=== PATIENT | male | born 1970 | race Two or more races ===

== ENCOUNTER 2018-06-07 21:56 | Emergency (ER) | payer MEDICARE, MEDICAID ==
[~2018-06-07] VITALS: Ht 162.6 cm; Wt 67.6 kg
[2018-06-07 23:19] LABS: Basophils # (auto) 0.1 uL; Basophils % (auto) 0.9 % (0.0-2.0); Eosinophils # (auto) 0.1 uL; Eosinophils % (auto) 1.7 % (0.0-7.0); Hematocrit 33.8 % (41.0-53.0); Lymphocytes # (auto) 0.7 uL; Mean Corpuscular Hemoglobin 32.2 pg (28.0-32.0); Mean Corpuscular Hgb Conc. 32.5 g/dL (32.0-36.0); Mean Corpuscular Volume 98.9 fL (80.0-100.0); Monocytes # (auto) 0.6 uL; Monocytes % (auto) 7.7 % (0.0-12.0); Neutrophils # (auto) 6.6 uL; Neutrophils % (auto) 80.7 % (37.0-80.0); Platelet Count (auto) 173 10^3/uL (140-450); Red Blood Cells 3.42 10^6/uL (4.5-5.90); Red Cell Distribution Width 16.6 % (11.8-14.3); White Blood Cell 8.2 10^3/uL (4.4-10.8)
[2018-06-07 23:36] LABS: Albumin 3.6 g/dL (3.4-5.0); BUN/Creatinine Ratio 4.5; Calcium 7.5 mg/dL (8.5-10.1); Potassium 5.1 mmol/L (3.5-5.1)
[2018-06-07 23:38] LABS: INR 0.94 (0.9-1.15); Partial Thromboplastin Time 27.7 sec (23.78-33.04); Prothrombin Time 10.1 sec (9.27-12.13)
[2018-06-07 23:41] LABS: Bilirubin, Total 0.4 mg/dL (0.2-1.0); Total Protein 7.2 g/dL (6.4-8.2)
[2018-06-08] MEDS ORDERED: ONDANSETRON HCL 4 MG/2 ML VIAL IV ONE (00:45)
[2018-06-08] MEDS ORDERED: ASPirin 81 mg TAB PO ONE (00:45)
[2018-06-08] MEDS ORDERED: MORPHINE SULFATE 4 MG/ML SYR/VIAL IV ONE (00:45)
[2018-06-08] MEDS ORDERED: ENOXAPARIN SOD 100 MG/1 ML SYRINGE SC ONE (03:45)
[2018-06-08 05:45] VITALS: BP 149/92
== END 2018-06-08 06:00 | disposition home or self-care (01) ==
LOC: ER 21:56
DX: I20.0 Unstable angina (principal); E11.22 Type 2 diabetes mellitus with diabetic chronic kidney disease; I12.0 Hypertensive chronic kidney disease with stage 5 chronic kidney disease or end stage renal disease; N18.6 End stage renal disease; I25.2 Old myocardial infarction
CPT/HCPCS: 36415; 71045; 80053; 83735; 83880; 84484; 85025; 85610; 85730; 93005; 96372; 96374; 96375; 99285; J1650; J2270; J2405

== ENCOUNTER 2024-11-19 17:31 | Inpatient (IN) | payer MEDICARE, OTHER ==
[~2024-11-19] VITALS: Ht 170.2 cm; Wt 66.4 kg
--- NOTE | 2024-11-19 17:42 | ED.PDOC ---
CPR-HPI HPI Comments 54-year-old male with past medical history of diabetes, end-stage renal disease, dialysis, and hypertension presents to the ED via EMS for cardiac arrest. EMS reports that patient experienced a witnessed arrest at home by family after reportedly complaining of chest pain. Estimated downtime was less than 10 minutes. Upon EMS arrival, the patient was found to be in ventricular fibrillation. One shock was delivered at 200 joules with transient ROSC. D uring Pre hospital resuscitation, EMS administrated 3 doses of epi, 1 dose of sodium bicarbonate, and 1 dose of calcium. The patient achieved ROSC twice in route but lost pulses on both occasions. Patient arrived at the ED with no signs of circulation and active CPR in progress via Teddy machine. No further history is available at this time as family he is not currently present. ROSC achieved at 1729 at bedside. EMS is unsure when patient gets dialyzed nor when his last session took place. Per [facility] medical records, patient does have a history of a previous CA and CAD. Chief Complaint: CPR Time Seen by MD: 17:28 Primary Care Provider: SAVI Franz Notes: Nurses Notes, Rn Acute Dialysis Notes, Medications, Allergies Allergies: Coded Allergies: Amlodipine (Verified Allergy, Unknown, 11/20/24) Home Meds Reported Medications Nitroglycerin (NTROSTAT SUBLINGUAL) 0.4 Mg Sl, 0.4 MG SL PRN, TAB *MAY REPEAT EVERY 5 MINUTES X 3 TOTAL IF NO RELIEF, INITIATE ANALGESIC THERAPY. NOTIFY PHYSICIAN *Do not crush. 11/20/24 Trazodone Hcl (Trazodone Hcl) 50 Mg Tab, 50 MG PO HS, MG TAKE 2 TO 3 TABLETS BY MOUTH NEEDED 11/20/24 Losartan Potassium (Losartan Potassium) 50 Mg Tab, 50 MG PO DAILY for 30 Days, MG 11/20/24 Clopidogrel Bisulfate (CLOPIDOGREL) 75 Mg Tab, 75 MG PO DAILY for 30 Days, MG 11/20/24 Atorvastatin Calcium (ATORVASTATIN CALCIUM) 80 Mg Tab, 80 MG PO DAILY@DINNER, TAB 11/20/24 Aspirin (Aspir-Low) 81 Mg Tab, 81 MG PO DAILY for 30 Days, MG 11/20/24 Carvedilol (Carvedilol) 12.5 Mg Tab, 12.5 MG PO Q12HR for 30 Days, MG 11/20/24 Information Source: Emergency Med Personnel Mode of Arrival: EMS Timing: Minutes Duration: Down time prior EMS: (less than 10 minutes ), Total time prior hopital: (less than 10 minutes ) Onset: At rest Available Hx: Prior Cardiac Disease Inital rhythm: V-fib Treatment: CPR, External pacer, IV, Epinephrine (3), Other (Bicarb and calcium ) Associated signs and symptoms: Chest Pain Past Medical History PAST MEDICAL HISTORY: DM, ESRD, HTN, CA Surgical History: Denies all surgeries Family History Family History: Unknown Social History Smoker: Non-Smoker Alcohol: Denies ETOH Use Drugs: Denies Drug Use Lives In: Home Unable to Obtain due to: Medical Urgency Physical Exam General Appearance: Other (CPR in progress) HEENT: PERRL/EOMI Neck: Normal Inspection Respiratory: Other (Patient being bagged) Cardiovascular: Other (CPR in progress) Breast Exam: Deferred Gastrointestinal: No Pulsatile Mass Genitalia: Deferred Pelvic: Deferred Rectal: Deferred Extremities: No pedal edema Neurologic: Other (Patient unresponsive) Cerebellar Function: NOT DONE Reflexes: NOT DONE Skin: Mottled Lymphatic: NOT DONE Was a procedure done? 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 Indication: Hypotension, Inability to obtain IV Room prepared for procedure: Yes Distresser performed hand hygien: Yes Maximal sterile barrier precau: Mask/Eye shield, Sterile gown, Cap, Sterlie gloves, Large sterlie drape Skin Preparation: Providine iodine Skin preparation completely dr: Yes Insertion site: Right, Femoral Central line catheter type: Xlu-fbepmyrj-smn dialysis Number of lumens: 3 Central line exchanged over a: Yes Antiseptic ointment applied to: Yes Post Assessment: Chest X-Ray, Proper placement Informed consent obtained: No Risks/benefits/alt described: No Differential Dx CPR Differential Diagnosis: Cardiopulmonary arrest, Cardiac Tamponade, Electrolyte disorder, Heart Block, Myocardial Infarction, Pneumothorax, Pulmonary Embolus, Respiratory Failure, Ruptured Aortic Aneurysm X-Ray, Labs, Meds, VS Vital Signs Date Time Temp Pulse Resp B/P (MAP) Pulse Ox O2 Delivery O2 Flow Rate FiO2 11/19/24 20:30 96.1 96 29 115/52 (73) 98 96.1 11/19/24 20:30 115/52 11/19/24 20:30 115/52 11/19/24 20:30 94 11/19/24 20:16 100/59 11/19/24 20:15 96.1 95 27 100/59 (73) 99 96.1 11/19/24 20:00 108/50 11/19/24 20:00 96.1 89 15 108/50 (69) 100 96.1 11/19/24 19:52 72 27 96/31 (52) 100 85 11/19/24 19:45 96.1 61 17 96/31 (52) 100 96.1 11/19/24 19:45 96/31 11/19/24 19:33 205.0 81 Ambu-Bag 11/19/24 19:30 75 21 98 Mechanical Ventilator+ 60 60 11/19/24 19:30 96.1 61 30 88/32 (50) 100 96.1 11/19/24 19:30 88/32 11/19/24 19:30 88/32 11/19/24 19:30 88/32 11/19/24 19:30 96.8 83 19 84/46 (59) 98 96.8 11/19/24 19:30 133 Ambu-Bag 11/19/24 19:15 96.1 59 25 87/46 (60) 100 96.1 11/19/24 19:15 87/46 11/19/24 19:15 87/46 11/19/24 19:03 67 11/19/24 19:00 84 18 210/99 (136) 100 11/19/24 18:45 85 11/19/24 18:40 75 18 108/49 (68) 100 11/19/24 18:30 77 18 117/55 (75) 100 11/19/24 18:20 82 16 139/67 (91) 100 11/19/24 18:10 152/80 11/19/24 18:05 97 16 100 Mechanical Ventilator+ 100 100 11/19/24 18:00 97 16 169/88 (115) 96 11/19/24 17:56 165/86 11/19/24 17:55 158/79 11/19/24 17:43 92 16 180/88 (118) 100 100 11/19/24 17:37 113 11/19/24 17:31 98.6 129 18 186/93 (124) 100 98.6 11/19/24 17:31 123 Lab Test 11/19/24 19:50 11/19/24 19:25 11/19/24 19:15 11/19/24 19:01 Range/Units POC Glucose 192 H 70-106 mg/dl Sodium Level 141 # 136-145 mmol/L Potassium Level 6.8 *H 3.5-5.1 mmol/L Chloride Level 101 98-107 mmol/L Carbon Dioxide Level 16 L 20-31 mmol/L Anion Gap 24 H 5-15 Blood Urea Nitrogen 97 *H 9-23 mg/dL Creatinine 13.00 *H 0.700-1.30 mg/dL Glomerular Filtration Rate Calc 4 >90 mL/min BUN/Creatinine Ratio 7.5 L 10.0-20.0 Serum Glucose 206 H 74-106 mg/dL Lactic Acid Level 4.1 *H 0.4-2.0 mmol/L Calcium Level 11.0 H 8.7-10.4 mg/dL Creatine Kinase 352 H 46-171 U/L Blood Gas Specimen Type Arterial Blood Gas Sample Site Left radial Blood Gas Patient Temperature 37.0 Arterial Blood Date Drawn [id number] Arterial Blood pH 7.242 *L 7.350-7.450 Arterial Blood Partial Pressure CO2 33.2 L 35.0-48.0 mmHg Arterial Blood Partial Pressure O2 96.5 83.0-108.0 mmHg Arterial Blood HCO3 14.0 L 21.0-28.0 mmol/L Arterial Blood Oxygen Saturation 94.8 94.0-98.0 % Arterial Blood Base Excess -12.2 L -2.0-3.0 mmol/L Arterial Blood Oxyhemoglobin 93.7 L 94.0-98.0 % Arterial Blood Carboxyhemoglobin 0.7 0.5-1.5 % Arterial Blood Methemoglobin 0.5 0.0-1.5 % Miguel Test N/a Blood Gas Total Hemoglobin 13.30 L 13.5-17.5 g/dL Blood Gas Set Respiration Rate 16.0 Blood Gas Modality Vent - ac FiO2 % 30.0 Blood Gas Tidal Volume 500.0 Blood Gas PEEP or CPAP 5.0 Specimen Drawn By Education And Training Coordinator ronak vail Blood Gas Critical Value Read Back Yes Blood Gas Notified Whom clinton Jacob Blood Gas Notified Time [id number] Blood Gas Notified By Education And Training Coordinator ronak vail Test 11/19/24 18:30 11/19/24 18:15 11/19/24 17:37 Range/Units Troponin I High Sensitivity 105 *H 56 *H </=54 ng/L Blood Gas Specimen Type Arterial Blood Gas Sample Site Left radial Blood Gas Patient Temperature 37.0 Arterial Blood Date Drawn [id number] Arterial Blood pH 7.243 *L 7.350-7.450 Arterial Blood Partial Pressure CO2 32.5 L 35.0-48.0 mmHg Arterial Blood Partial Pressure O2 > 529.9 *H 83.0-108.0 mmHg Arterial Blood HCO3 13.7 L 21.0-28.0 mmol/L Arterial Blood Oxygen Saturation 99.7 H 94.0-98.0 % Arterial Blood Base Excess -12.5 L -2.0-3.0 mmol/L Arterial Blood Oxyhemoglobin 98.5 H 94.0-98.0 % Arterial Blood Carboxyhemoglobin 0.8 0.5-1.5 % Arterial Blood Methemoglobin 0.4 0.0-1.5 % Miguel Test N/a Blood Gas Total Hemoglobin 12.60 L 13.5-17.5 g/dL Blood Gas Set Respiration Rate 16.0 Blood Gas Modality Vent - ac FiO2 % 100.0 Blood Gas Tidal Volume 500.0 Blood Gas PEEP or CPAP 5.0 Specimen Drawn By Education And Training Coordinator ronak vail Blood Gas Critical Value Read Back Yes Blood Gas Notified Whom clinton Herr Blood Gas Notified Time [id number] Blood Gas Notified By clinton Herr White Blood Count 9.7 4.4-10.8 10^3/uL Red Blood Count 4.04 L 4.5-5.90 10^6/uL Hemoglobin 13.3 L 13.5-17.5 g/dL Hematocrit 43.0 41.0-53.0 % Mean Corpuscular Volume 106.4 H 80.0-100.0 fL Mean Corpuscular Hemoglobin 32.8 H 28.0-32.0 pg Mean Corpuscular Hemoglobin Concent 30.8 L 32.0-36.0 g/dL Red Cell Distribution Width 16.8 H 11.8-14.3 % Platelet Count 193 140-450 10^3/uL Mean Platelet Volume 9.8 6.9-10.8 fL Neutrophils (%) (Auto) 37.0-80.0 % Lymphocytes (%) (Auto) 10.0-50.0 % Monocytes (%) (Auto) 0.0-12.0 % Basophils (%) (Auto) 0.0-2.0 % Neutrophils # (Auto) 1.6-8.6 10 ^3/uL Lymphocytes # (Auto) 0.4-5.4 10 ^3/uL Monocytes # (Auto) 0-1.3 10 ^3/uL Differential Total Cells Counted 100.0 100 Neutrophils % (Manual) 60 37.0-80.0 Band Neutrophils % (Manual) 3 Lymphocytes % (Manual) 24 10.0-50.0 Monocytes % (Manual) 12 0-12 Eosinophils % (Manual) 1 0-7 Basophils % (Manual) 0 0.0-2.0 Metamyelocytes % (manual) 0 Myelocytes % (Manual) 0 Promyelocytes % (Manual) 0 Blast Cells % (Manual) 0 Reactive Lymphocytes 0 Platelet Estimate Adequate Anisocytosis (manual) Slight Macrocytosis Moderate Sodium Level 136 136-145 mmol/L Potassium Level 8.7 *H 3.5-5.1 mmol/L Chloride Level 98 98-107 mmol/L Carbon Dioxide Level 15 L 20-31 mmol/L Anion Gap 23 H 5-15 Blood Urea Nitrogen 101 *H 9-23 mg/dL Creatinine 13.35 *H 0.700-1.30 mg/dL Glomerular Filtration Rate Calc 4 >90 mL/min BUN/Creatinine Ratio 7.6 L 10.0-20.0 Serum Glucose 244 H 74-106 mg/dL Lactic Acid Level 5.7 *H 0.4-2.0 mmol/L Calcium Level 11.0 H 8.7-10.4 mg/dL Magnesium Level 2.7 H 1.6-2.6 mg/dL Total Bilirubin 0.4 0.2-1.0 mg/dL Aspartate Amino Transferase (AST) 498 H 13-40 U/L Alanine Aminotransferase (ALT) 488 H 7-40 U/L Alkaline Phosphatase 237 H 46-116 U/L Total Protein 7.2 5.7-8.2 g/dL Albumin 4.3 3.2-4.8 g/dL Microbiology Date/Time Source Procedure Growth Status 11/19/24 18:11 Blood Blood Culture - Preliminary NO GROWTH AFTER 72 HOURS OF INCUBATION. Resulted 11/19/24 18:00 Blood Blood Culture - Preliminary NO GROWTH AFTER 72 HOURS OF INCUBATION. Resulted 11/19/24 17:35 Trachea Gram Stain - Final Complete 11/19/24 17:35 Trachea Respiratory Culture - Final Complete Time of 1ST Reevaluation: 17:39 Reevaluation 1ST: Unchanged Patient Education/Counseling: Pt Unresponsive Family Education/Counseling: No Family Present Departure 1 Departure Time of Disposition: 19:49 Impression: Primary Impression: Hyperkalemia Additional Impressions: Observed collapse due to cardiac arrest Acute metabolic acidosis Hemodynamic instability End stage renal disease on dialysis Disposition: ADMITTED INPATIENT Admit to: ICU Condition: Critical Comments Discussed with Dr. Win from [place] . Patient unstable for transport. Authorization number #[id number] Critical Care Note Critical Care Time?: Yes (30 min-critical care time only) Critical care comment: Post arrest Authorized and Performed by: Dalila Holloway MD Total critical care time: Approximately 104 minutes Due to a high probability of clinically significant, life threatening deterioration, the patient required my highest level of preparedness to intervene emergently and I personally spent this critical care time directly and personally managing the patient. This critical care time included obtaining a history; examining the patient; pulse oximetry; ordering and review of studies; arranging urgent treatment with development of a management plan; evaluation of patient's response to treatment; frequent reassessment; and, discussions with other providers. This critical care time was performed to assess and manage the high probability of imminent, life-threatening deterioration that could result in multi-organ failure. It was exclusive of separately billable procedures and treating other patients and teaching time. Please see my other sections and the rest of the note for further information on patient assessment and treatment. Heart Score Heart Score: Heart Score Response (Comments) Value History N/A 0 EKG N/A 0 Age N/A 0 Risk Factors N/A 0 Troponin N/A 0 Total 0 Stability Stability form required: No I personally scribed for DALILA HOLLOWAY MD ([email or web address]) on 11/19/24 at 17:42. Electronically submitted by Heather Gonzalez ([employer]). I personally scribed for DALILA HOLLOWAY MD [facility] on 11/19/24 at 17:47. Electronically submitted by Heather Gonzalez ([facility]). I personally scribed for DALILA HOLLOWAY MD ([email or web address]) on 11/19/24 at 17:56. Electronically submitted by Heather Gonzalez ([facility]). DALILA HOLLOWAY MD Nov 19, 2024 17:42 TOY PINEDA MD Nov 19, 2024 19:52
[2024-11-19 17:43] VITALS: BP 180/88; PULSE 92; RESP 16; O2SAT 100
[2024-11-19] MEDS: SODIUM BICARB 8.4% 50Meq/50ml SYR Vial IV ONE (17:54)
[2024-11-19] MEDS: DEXTROSE (50%) 50ML SYRG IV ONE ×2 (17:54→20:15)
[2024-11-19] MEDS: DOPamine 1600MCG/ML D5W 250 ML IV ONE (17:55)
[2024-11-19] MEDS: PROPOFOL 100 ML IV SCH (17:56)
[2024-11-19 18:05] VITALS: PULSE 97; RESP 16; O2SAT 100
[2024-11-19 18:22] LABS: Base Excess -12.5 mmol/L (-2.0-3.0)
[2024-11-19] MEDS: CEFEPIME 2GM/50ML NS 50 ML IV ONE (18:22)
[2024-11-19] MEDS: PROPOFOL 100 ML IV ONE (18:37)
[2024-11-19 18:41] LABS: Lactic Acid w/Reflex 5.7 mmol/L (0.4-2.0)
--- NOTE | 2024-11-19 18:43 | ECG ---
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
[2024-11-19 18:49] LABS: Hemoglobin 13.3 g/dL (13.5-17.5); Mean Corpuscular Hemoglobin 32.8 pg (28.0-32.0); Mean Corpuscular Hgb Conc. 30.8 g/dL (32.0-36.0); Mean Corpuscular Volume 106.4 fL (80.0-100.0); Platelet Count (auto) 193 10^3/uL (140-450); Red Blood Cells 4.04 10^6/uL (4.5-5.90); Red Cell Distribution Width 16.8 % (11.8-14.3); White Blood Cell 9.7 10^3/uL (4.4-10.8)
--- NOTE | 2024-11-19 18:50 | DVH ---
CHEST RADIOGRAPH Indication: intubated, post rosc Technique: Single frontal view of the chest was obtained COMPARISON: None FINDINGS: Lines and Tubes: Endotracheal tube, enteric catheter in satisfactory position. Median sternotomy. Lungs: Congestion. Pleura: No effusion. No pneumothorax. Cardiomediastinal contours: Cardiomegaly Bones: Unremarkable IMPRESSION: Lines and tubes in satisfactory position.
[2024-11-19 18:52] LABS: Basophils % (manual) 0 (0.0-2.0); Blast Cells 0; Metamyelocytes % 0; Myelocytes % 0; Promyelocytes % 0; Reactive Lymphocytes 0
[2024-11-19 19:05] LABS: Anion Gap 23 (5-15); BUN/Creatinine Ratio 7.6 (10.0-20.0); Chloride 98 mmol/L (98-107); Total Protein 7.2 g/dL (5.7-8.2)
[2024-11-19] MEDS: AMIODARONE 360mg/200mL PREMIX 200 ML IV ONE ×2 (19:05→19:07)
[2024-11-19 19:06] LABS: Albumin 4.3 g/dL (3.2-4.8); Bilirubin, Total 0.4 mg/dL (0.2-1.0)
--- NOTE | 2024-11-19 19:06 | ECG ---
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
[2024-11-19 19:14] LABS: Carbon Dioxide 15 mmol/L (20-31); Glucose 244 mg/dL (74-106); Sodium 136 mmol/L (136-145)
[2024-11-19 19:15] LABS: Alanine Aminotransferase 488 U/L (7-40); Alkaline Phosphatase 237 U/L (46-116); Aspartate Aminotransferase 498 U/L (13-40); Magnesium 2.7 mg/dL (1.6-2.6)
[2024-11-19 19:18] LABS: Blood Urea Nitrogen 101 mg/dL (9-23); Potassium 8.7 mmol/L (3.5-5.1)
[2024-11-19] MEDS: ALBUTEROL SULF 2.5 MG/0.5ML(0.5%) NEB SOLN ONE (19:27)
[2024-11-19 19:30] VITALS: PULSE 75; RESP 21; O2SAT 98
[2024-11-19] MEDS: CALCIUM CHL 100MG/ML 500 MG in D5W 5% 100 ML IV ONE (19:30)
[2024-11-19] MEDS: FUROSEMIDE 20 MG/2 ML VIAL IV ONE (19:30)
[2024-11-19] MEDS ORDERED: NOREPINEPHRINE 8 MG/250ML KIT 250 ML IV SCH (19:30)
--- NOTE | 2024-11-19 19:30 | RESUS ---
CODE BLUE ASSESSSMENT History of Events History of Events: PATIENT BROUGHT TO ER VIA EMS, CPR IN PROGRESS VIA AUTOPULSE. PER EMS PT HAD A WITNESSED ARREST BY FAMILY. PT WAS IN V-FIB ON SCENE FOR EMS. PT WAS SHOCKED ONCE, GIVEN 3 EPI, ONE CALCIUM, AND ONE BICARB BY EMS. ROSC ACHIEVED IN THE FIELD AND LOST PULSES AGAIN BEFORE ARRIVAL TO ER. Initial Information Date: Nov 19, 2024 Time: 17:28 Location of Arrest: In Field Arrest Witnessed: Yes CPR started by whom: EMS Pre-Hospital Care: ACLS Type of arrest: Cardiac Spontaneous Respirations: No Pulse Present: No Monitoring: Pulse Oximetry, Capnography, Telemetry Crash Cart Opened and Supplies: Yes Airway Ventilation Breathing at Onset: Assisted Oxygen Delivery Method: Ambu-Bag Artificial Ventilation: Bag/Endo tube Intubation Size: 8.0 cuffed Intubated by: EMS Intubated orally: Yes Tube secured at: 26 Suctioning (Oral/Tracheal): Yes Circulation Circulation : Time: 17:30 Pulse Rate (adult): 133 (186) Blood Pressure Systolic: 183 Blood Pressure Diastolic: 93 Procedure - IV Procedure - IV : IV Side: Left IV Location: Hand IV Catheter Type: Peripheral IV IV Placed: Pre-Hospital IV Placed by GARY CAUSEY IV Gauge: 20 IV Line Care: Saline Flush Medications & Response Medications and Responses #1: Medication Time: 17:29 ADULT Medications Given ADULT: Calcium Chloride 10 mL Route of Administration: IV EKG Rhythm: Sinus Tachycardia Medications and Responses #2: Medication Time: 17:34 ADULT Medications Given ADULT: D50 (amp) Route of Administration: IV Nurses Notes Alisa Coma Scale Eye Opening: None (1) Alisa Coma Scale Verbal: None (1) Alisa Coma Scale Motor: None (1) Glascow Total: 3 Pupil Reaction: Non Reactive Bedside Blood Glucose: 66 Time Code Ended Time Code Ended: 17:30 Post Arrest Status: Ventilated Outcome of code: Successful Family notified: Yes Code Team Present: DR WILMAR SANTOS RT FREDDIE GALE ROSC Time of ROSC: 17:30 Dalila Ortiz Nov 19, 2024 19:30
--- NOTE | 2024-11-19 19:33 | RESUS ---
CODE BLUE ASSESSSMENT History of Events History of Events: SECOND CODE BLUE. PT WENT INTO PULSELESS V-TACH. CPR INTIATED. Initial Information Date: Nov 19, 2024 Time: 18:47 Location of Arrest: ER Arrest Witnessed: Yes CPR started initial time: 18:47 CPR started by whom: Hospital Staff Pre-Hospital Care: ACLS Type of arrest: Cardiac Spontaneous Respirations: No Pulse Present: No Monitoring: Pulse Oximetry, Telemetry Crash Cart Opened and Supplies: Yes Airway Ventilation Breathing at Onset: Assisted Oxygen Delivery Method: Ambu-Bag Circulation Circulation #1: Time: 18:47 Pulse Rate (adult): 0 Blood Pressure Systolic: 0 Blood Pressure Diastolic: 0 Circulation Comment: PT WENT INTO PULSELESS V-TACH Circulation #2: Time: 18:52 Pulse Rate (adult): 0 Blood Pressure Systolic: 0 Blood Pressure Diastolic: 0 Circulation #3: Time: 18:54 Pulse Rate (adult): 0 Blood Pressure Systolic: 0 Blood Pressure Diastolic: 0 Circulation Comment: PT WENT INTO V-FIB Circulation #4: Time: 18:59 Pulse Rate (adult): 81 Blood Pressure Systolic: 210 Blood Pressure Diastolic: 99 Temperature (Fahrenheit): 96.1 Circulation Comment: PT ACHEIVED ROSC AT THIS TIME. Defibrillation Defbrillation #1: EKG Rhythm: V-Tachycardia Compressions: Manual Time Defibrillator Shocked Pt.: 18:47 Defib. Joules: 120 Pulse Present: No EKG Rhythm: V-Tachycardia Defbrillation #2: EKG Rhythm: V-Tachycardia Compressions: Manual Time Defibrillator Shocked Pt.: 18:50 Defib. Joules: 150 Pulse Present: No EKG Rhythm: V-Fibrillation Defbrillation #3: EKG Rhythm: V-Fibrillation Compressions: Manual Time Defibrillator Shocked Pt.: 18:54 Defib. Joules: 200 EKG Rhythm: V-Tachycardia Defbrillation #4: EKG Rhythm: V-Fibrillation Compressions: Manual Time Defibrillator Shocked Pt.: 18:56 Defib. Joules: 200 Pulse Present: No EKG Rhythm: V-Fibrillation Medications & Response Medications and Responses #1: Medication Time: 18:48 ADULT Medications Given ADULT: Amiodarone 150 mg Route of Administration: IV EKG Rhythm: V-Tachycardia EKG Rhythm: V-Tachycardia Medications and Responses #2: Medication Time: 18:49 ADULT Medications Given ADULT: Calcium Chloride 10 mL Route of Administration: IV Medications and Responses #3: Medication Time: 18:48 ADULT Medications Given ADULT: Epinephrine 1 mg Route of Administration: IV EKG Rhythm: V-Tachycardia EKG Rhythm: V-Tachycardia Medications and Responses #4: Medication Time: 18:50 ADULT Medications Given ADULT: Sodium Bacarbinate 50 meq Route of Administration: IV Medications and Responses #5: Medication Time: 18:51 ADULT Medications Given ADULT: Epinephrine 1 mg EKG Rhythm: V-Tachycardia EKG Rhythm: V-Tachycardia Medications and Responses #6: ADULT Medications Given ADULT: Amiodarone 300 mg Route of Administration: IV EKG Rhythm: V-Tachycardia EKG Rhythm: V-Tachycardia Medications and Responses #7: Medication Time: 18:54 ADULT Medications Given ADULT: Magnesium Sulfate 2 gm Route of Administration: IV Medications and Responses #8: Medication Time: 18:55 ADULT Medications Given ADULT: Epinephrine 1 mg Route of Administration: IV EKG Rhythm: V-Fibrillation EKG Rhythm: V-Fibrillation Medications and Responses #9: Medication Time: 18:58 ADULT Medications Given ADULT: Epinephrine 1 mg Route of Administration: IV EKG Rhythm: V-Fibrillation EKG Rhythm: V-Fibrillation Medications and Responses #10: Medication Time: 19:05 Nurses Notes Alisa Coma Scale Eye Opening: None (1) [place] Coma Scale Verbal: None (1) [place] Coma Scale Motor: None (1) Glascow Total: 3 Bedside Blood Glucose: 153 Time Code Ended Time Code Ended: 18:59 Post Arrest Status: Ventilated Outcome of code: Successful Code Team Present: DR MIRIAM NINA Post Resuscitation Neurologica Pupil Size: 3 ROSC Time of ROSC: 18:59 DANIELLE ANDREA Nov 19, 2024 19:33
[2024-11-19] MEDS: NOREPINEPHRINE 8 MG/250ML KIT 250 ML IV SCH (19:45)
[2024-11-19 19:52] VITALS: BP 96/31; PULSE 72; RESP 27; O2SAT 100
[2024-11-19] MEDS: ALBUTEROL SULF 2.5 MG/0.5ML(0.5%) NEB SOLN NEB ONE (19:52)
[2024-11-19 19:53] LABS: Anisocytosis Slight; Band Neutrophils % (manual) 3; Eosinophils % (manual) 1 (0-7); Lymphocytes % (manual) 24 (10.0-50.0); Monocytes % (manual) 12 (0-12); Platelet Estimate Adequate
[2024-11-19 19:54] LABS: Macrocytosis Moderate
[2024-11-19 20:04] LABS: Base Excess -12.2 mmol/L (-2.0-3.0)
[2024-11-19] MEDS: InsuLIN REG 1unit/0.01ml Soln (100units/ml) IV ONE (20:13)
[2024-11-19] MEDS: MIDAZOLAM DRIP 50 mg/50mL 50 ML IV SCH (20:16)
[2024-11-19 20:21] LABS: Chloride 101 mmol/L (98-107); Sodium 141 mmol/L (136-145)
[2024-11-19 20:22] LABS: Anion Gap 24 (5-15)
[2024-11-19 20:27] LABS: BUN/Creatinine Ratio 7.5 (10.0-20.0)
[2024-11-19 20:33] LABS: Carbon Dioxide 16 mmol/L (20-31); Glucose 206 mg/dL (74-106)
[2024-11-19 20:35] LABS: Potassium 6.8 mmol/L (3.5-5.1)
[2024-11-19 20:36] LABS: Blood Urea Nitrogen 97 mg/dL (9-23)
[2024-11-19] MEDS ORDERED: ONDANSETRON HCL 4 MG/2 ML VIAL IV PRN (20:45)
[2024-11-19 21:12] VITALS: BP 100/59; PULSE 94; RESP 27; O2SAT 100
--- NOTE | 2024-11-19 21:32 | DVHHPRES ---
History of Present Illness Resident Creating Document: JESUSITA STANLEY RESIDENT History of Present Illness Silvano Crawford is a 54-year-old male who presents to the ED via EMS due to cardiac arrest. Due to clinical status, obtained information from EMR and . Per EMS report, patient experienced a witnessed arrest at home, family reported patient complaint of chest pain before arrest, and he was also having worsening chest pain for the past month which was partially relieved by nitroglycerin. Estimated downtime of less than 10 minutes. During pre-hospital resuscitation EMS administered three doses of epi, one dose of permanent, one dose of calcium, achieving ROSC twice in route. During period in ER patient coded twice, with evidence of ventricular fibrillation, delivered one shock (200 joules) and obtaining ROSC. Per ER nurse at bedside patient's last dialysis session was on Tuesday, he did not obtain dialysis session today. Pending dialysis during this p.m.. Obtain review of systems due to clinical status Past medical history: Diabetes, dyslipidemia, hypertension end-stage renal disease on dialysis3 times a week (Tuesday, Tuesday and Tuesday) last session on Tuesday, coronary artery disease with history of [place] status post multiple PCI with a total of eight ZAK placed (last one in 2020), and CABG 2020, erectile dysfunction status postop Surgical history: Av fistula on right arm, CABG in 2020, multiple PCI with a total of eight stents placed last one in 2020 (last coronary angiography was in 2020 as well) Family history: Noncontributory Social history: Lives with family in [place], kelly Babin) is the next of kin. Quit tobacco approximately 20 years ago (10 pack-year history). Denies current tobacco, alcohol and other drug abuse Allergies: Amlodipine Home medication: does not recall. Knows he is on aspirin atorvastatin Patient seen and examined at bedside. Patient currently under patient due to mechanical ventilation assistance. On propofol and Versed, on vasopressor (dopamine 8, no norepinephrine). Past Medical History HPI Past Surgical History Per HPI Family History Per HPI Past Social History Per HPI Review of Systems Review of Systems Per HPI Allergies: Coded Allergies: Amlodipine (Verified Allergy, Unknown, 11/20/24) Medications Current Medications Medications Dose Ordered Sig/Gabby Route Start Time Stop Time Status Last Admin Dose Admin Propofol 100 ml @ 2.79 mls/hr Q24H IV 11/19/24 17:45 11/19/24 17:56 2.79 MLS/HR Midazolam HCl 50 ml @ 1 mls/hr Q24H IV 11/19/24 17:45 11/19/24 20:16 1 MLS/HR Fentanyl Citrate 250 ml @ 2.5 mls/hr Q24H IV 11/19/24 17:45 Norepinephrine Bitartrate 250 ml @ 3.75 mls/hr Q24H IV 11/19/24 19:45 Ondansetron HCl 4 mg Q4HP PRN IV 11/19/24 20:45 Exam Vital Signs Vital Signs Date Time Temp Pulse Resp B/P (MAP) Pulse Ox O2 Delivery O2 Flow Rate FiO2 11/19/24 20:30 94 11/19/24 20:16 100/59 11/19/24 19:52 27 100 85 11/19/24 19:33 205.0 Ambu-Bag Exam Patient lying in bed, under sedoanalgesia due to mechanical ventilation General: RASS -3, afebrile, mucosae are moist Cardiovascular: Normal S1 and S2. No murmurs, gallops or rubs Respiratory: Mechanically assisted ventilation, equal bilateral airway entree. Clear lung sounds on auscultation Abdomen: Soft, nontender, no organomegaly, normal bowel sounds. OG tube with brown fluid, on aspiration MSK/skin: Mobilization of limbs cannot be evaluated. Skin is dry and warm. Has right femoral central line with no signs of infection Neurological: Orientation cannot be assessed. No apparent motor no sensitive deficits. Pupils are isocoric and reactive Labs/Xrays Labs Test 11/19/24 19:50 11/19/24 19:25 11/19/24 19:15 11/19/24 19:01 Range/Units POC Glucose 192 H 70-106 mg/dl Sodium Level 141 # 136-145 mmol/L Potassium Level 6.8 *H 3.5-5.1 mmol/L Chloride Level 101 98-107 mmol/L Carbon Dioxide Level 16 L 20-31 mmol/L Anion Gap 24 H 5-15 Blood Urea Nitrogen 97 *H 9-23 mg/dL Creatinine 13.00 *H 0.700-1.30 mg/dL Glomerular Filtration Rate Calc 4 >90 mL/min BUN/Creatinine Ratio 7.5 L 10.0-20.0 Serum Glucose 206 H 74-106 mg/dL Lactic Acid Level 4.1 *H 0.4-2.0 mmol/L Calcium Level 11.0 H 8.7-10.4 mg/dL Creatine Kinase 352 H 46-171 U/L Blood Gas Specimen Type Arterial Blood Gas Sample Site Left radial Blood Gas Patient Temperature 37.0 Arterial Blood Date Drawn [id number] Arterial Blood pH 7.242 *L 7.350-7.450 Arterial Blood Partial Pressure CO2 33.2 L 35.0-48.0 mmHg Arterial Blood Partial Pressure O2 96.5 83.0-108.0 mmHg Arterial Blood HCO3 14.0 L 21.0-28.0 mmol/L Arterial Blood Oxygen Saturation 94.8 94.0-98.0 % Arterial Blood Base Excess -12.2 L -2.0-3.0 mmol/L Arterial Blood Oxyhemoglobin 93.7 L 94.0-98.0 % Arterial Blood Carboxyhemoglobin 0.7 0.5-1.5 % Arterial Blood Methemoglobin 0.5 0.0-1.5 % Miguel Test N/a Blood Gas Total Hemoglobin 13.30 L 13.5-17.5 g/dL Blood Gas Set Respiration Rate 16.0 Blood Gas Modality Vent - ac FiO2 % 30.0 Blood Gas Tidal Volume 500.0 Blood Gas PEEP or CPAP 5.0 Specimen Drawn By Legal Intern ronak vail Blood Gas Critical Value Read Back Yes Blood Gas Notified Whom clinton Jacob Blood Gas Notified Time [id number] Blood Gas Notified By Legal Intern ronak vail Test 11/19/24 18:30 11/19/24 17:37 Range/Units Troponin I High Sensitivity 105 *H </=54 ng/L White Blood Count 9.7 4.4-10.8 10^3/uL Red Blood Count 4.04 L 4.5-5.90 10^6/uL Hemoglobin 13.3 L 13.5-17.5 g/dL Hematocrit 43.0 41.0-53.0 % Mean Corpuscular Volume 106.4 H 80.0-100.0 fL Mean Corpuscular Hemoglobin 32.8 H 28.0-32.0 pg Mean Corpuscular Hemoglobin Concent 30.8 L 32.0-36.0 g/dL Red Cell Distribution Width 16.8 H 11.8-14.3 % Platelet Count 193 140-450 10^3/uL Mean Platelet Volume 9.8 6.9-10.8 fL Neutrophils (%) (Auto) 37.0-80.0 % Lymphocytes (%) (Auto) 10.0-50.0 % Monocytes (%) (Auto) 0.0-12.0 % Basophils (%) (Auto) 0.0-2.0 % Neutrophils # (Auto) 1.6-8.6 10 ^3/uL Lymphocytes # (Auto) 0.4-5.4 10 ^3/uL Monocytes # (Auto) 0-1.3 10 ^3/uL Differential Total Cells Counted 100.0 100 Neutrophils % (Manual) 60 37.0-80.0 Band Neutrophils % (Manual) 3 Lymphocytes % (Manual) 24 10.0-50.0 Monocytes % (Manual) 12 0-12 Eosinophils % (Manual) 1 0-7 Basophils % (Manual) 0 0.0-2.0 Metamyelocytes % (manual) 0 Myelocytes % (Manual) 0 Promyelocytes % (Manual) 0 Blast Cells % (Manual) 0 Reactive Lymphocytes 0 Platelet Estimate Adequate Anisocytosis (manual) Slight Macrocytosis Moderate Magnesium Level 2.7 H 1.6-2.6 mg/dL Total Bilirubin 0.4 0.2-1.0 mg/dL Aspartate Amino Transferase (AST) 498 H 13-40 U/L Alanine Aminotransferase (ALT) 488 H 7-40 U/L Alkaline Phosphatase 237 H 46-116 U/L Total Protein 7.2 5.7-8.2 g/dL Albumin 4.3 3.2-4.8 g/dL Assessment/Plan Assessment/Plan Assessment: Cardiac arrest status post ROSC Cardiac arrhythmia (V-Fib and pulseless V-Tach) - etiology electrolyte alteration vs ischemia Severe hyperkalemia Acute respiratory failure Hypoxic encephalopathy NSTEMI questionable type I Rapidly progressive angina Metabolic acidosis End-stage renal disease on hemodialysis Diabetes Dyslipidemia Hypertension Erectile dysfunction Plan: Patient admitted in ICU status, under mechanical assisted ventilation (VT: 550, RR: 16, PEEP: 5, FIO2: 0.85) Currently on vasopressors (dopamine 8 mg/minute) Consulted nephrology, going to complete stat hemodialysis session today and p.m.. Ordered head CT after completing hemodialysis session Ordered echocardiogram. We will trend troponin Care discussed with family ( Monika): Full code status Discuss plan with Dr Davies and nurses: Planning on completing urgent hemodialysis session. Pending head CT, echocardiogram and will evaluate respiratory weaning if stable. Per , patient has history of recently progressive angina which did not resolved with nitroglycerin, then depending on brain function and ability to complete respiratory weaning, suggest evaluation by Cardiology for ischemic workup. Patient has poor prognosis Critical care time spent including discussion with nursing and family: 62 minutes Patient is not stable for transferred to [place]. Plan discussed with: Spouse, Daughter, Other (Nurses) My Orders Orders - JESUSITA STANLEY RESIDENT Procedure Category Date Status Time Admit ADMIT 11/19/24 Transmitted 20:45 Code Status CODE 11/19/24 Transmitted 20:45 Vital Signs [facility] 11/19/24 In Process 20:45 Review Orders With [facility] 11/19/24 In Process Adm. 20:45 Npo (Nothing By DIET 11/20/24 Transmitted Mouth) Diet Breakfast Notify Md Of Changes [facility] 11/19/24 In Process From Base 20:45 Advance Directive [facility] 11/19/24 In Process 20:45 Echo 2d Mode Cardiac US 11/19/24 Logged DOP 20:45 Patient Condition ORDERS 11/19/24 Transmitted 20:45 Allergies JEN 11/19/24 In Process 20:45 Ondansetron Hcl PHA 11/19/24 In Process (Zofran) 20:45 Oxygen By Nasal RT 11/19/24 Transmitted Cannula 20:45 Stat Ekg For Chest [facility] 11/19/24 In Process Pain 20:45 Notify Of Changes [facility] 11/19/24 In Process From Base 20:45 Supervisor Lens Generating For [facility] 11/19/24 In Process 24 Hours 20:45 Emergency Dysrhythmia [facility] 11/19/24 In Process Protocol 20:45 Rhythm Strips Once [facility] 11/19/24 In Process Every Shift 20:45 Lactic Acid W/ Reflex LAB 11/19/24 Logged Order 20:45 Comprehensive LAB 11/19/24 Logged Metabolic Panel 20:45 Drug Screen LAB 11/19/24 Logged 20:45 Thyroid Stimulating LAB 11/19/24 Logged Hormone 20:45 Vitamin B12 LAB 11/19/24 Logged 20:45 Vitamin D, 25-Hydroxy LAB 11/19/24 Logged 20:45 Phosphorus LAB 11/19/24 Logged 20:45 PTPTT LAB 11/19/24 Logged 20:45 Magnesium LAB 11/19/24 Logged 20:45 Lipid Panel LAB 11/19/24 Logged 20:45 Hemoglobin A1c LAB 11/19/24 Logged 20:45 Date of Service: Nov 19, 2024 Billing Provider: ABRAHAM DAVIES MD Common Visit Codes: [id number] INP/OBS CARE (HIGH) JESUSITA STANLEY RESIDENT Nov 19, 2024 21:32 ABRAHAM DAVIES MD Nov 20, 2024 10:25
[2024-11-19 22:30] VITALS: BP 107/87; PULSE 79; RESP 27; O2SAT 100
[2024-11-19] MEDS: PANTOPRAZOLE 40 MG/10 ML VIAL INJ IV ONE (23:45)
[2024-11-20] VITALS (99 sets, daily range): BP systolic 50–180; BP diastolic 22–83; PULSE 59–99; RESP 12–27; TEMP 98.1–99.8; O2SAT 96–100
--- NOTE | 2024-11-20 00:33 | ECG ---
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
--- NOTE | 2024-11-20 00:41 | DVH ---
CT HEAD WITHOUT CONTRAST INDICATION: CPR COMPARISON: None TECHNIQUE: CT of the head without intravenous contrast. RADIATION DOSE: CTDIvol: 59.52 mGy, DLP: 1072.99 mGy*cm FINDINGS: There is no evidence of intracranial hemorrhage, infarct, extra-axial collection, mass effect, midli ne shift, herniation or hydrocephalus. The ventricles, sulci and cisterns are normal. Extensive vascular calcifications noted presumably related to DM/CKD. Considerable mucosal thickening with complete opacification of left maxillary sinus, mucosal thickening in left ethmoid sinus. Other caro unremarkable. Mastoid air cells and middle ear cavities are clear. Soft tissues and osseous stru ctures are unremarkable. IMPRESSION: No acute intracranial abnormality identified.
[2024-11-20] MEDS: fentaNYL Drip 2500mCg/250mlNS 250 ML IV SCH (01:00)
[2024-11-20] MEDS: InsuLIN REG 1unit/0.01ml Soln (100units/ml) SC SCH (04:00)
[2024-11-20 04:44] LABS: Basophils # (auto) 0.1 10 ^3/uL (0-0.2); Basophils % (auto) 0.4 % (0.0-2.0); Eosinophils # (auto) 0 10 ^3/uL (0-0.8); Eosinophils % (auto) 0.1 % (0.0-7.0); Hematocrit 34.8 % (41.0-53.0); Hemoglobin 11.2 g/dL (13.5-17.5); Lymphocytes # (auto) 0.4 10 ^3/uL (0.4-5.4); Lymphocytes % (auto) 2.8 % (10.0-50.0); Mean Corpuscular Hemoglobin 32.2 pg (28.0-32.0); Mean Corpuscular Hgb Conc. 32.1 g/dL (32.0-36.0); Mean Corpuscular Volume 100.3 fL (80.0-100.0); Monocytes % (auto) 7.3 % (0.0-12.0); Neutrophils # (auto) 11.9 10 ^3/uL (1.6-8.6); Neutrophils % (auto) 89.4 % (37.0-80.0); Platelet Count (auto) 160 10^3/uL (140-450); Red Blood Cells 3.47 10^6/uL (4.5-5.90); Red Cell Distribution Width 15.7 % (11.8-14.3); White Blood Cell 13.3 10^3/uL (4.4-10.8)
[2024-11-20] MEDS: ATORVASTATIN 20 MG TAB PO ONE (04:54)
[2024-11-20 04:58] LABS: INR 1.14 (0.9-1.15); Partial Thromboplastin Time 29.6 SEC (24.5-34.5); Prothrombin Time 11.9 sec (9.3-11.8)
[2024-11-20] MEDS: ACCU-CHEK COMFORT CURVE STRIP VI SCH (04:59)
--- NOTE | 2024-11-20 05:15 | DVH ---
EXAM: XR Chest, 1 View CLINICAL INDICATION: INTUBATION TECHNIQUE: Frontal view of the chest. COMPARISON: XY CHEST PORTABLE on DOS: 11/19/24 FINDINGS: LUNGS AND PLEURAL SPACES: Mild congestive heart failure, unchanged. No consolidation. No pneumoth orax. HEART: Unremarkable. No cardiomegaly. MEDIASTINUM: Unremarkable. Normal mediastinal contour. BONES/JOINTS: Unremarkable. No acute fracture. TUBES, LINES AND DEVICES: The endotracheal tube (ETT) is in satisfactory position. Enteric tube ti p cannot be seen but is below the diaphragm. OTHER FINDINGS: . IMPRESSION: Mild congestive heart failure, unchanged.
[2024-11-20 05:52] LABS: Albumin 3.6 g/dL (3.2-4.8); Anion Gap 15 (5-15); BUN/Creatinine Ratio 6.6 (10.0-20.0); Carbon Dioxide 27 mmol/L (20-31); Chloride 99 mmol/L (98-107); Magnesium 2.5 mg/dL (1.6-2.6); Potassium 4.9 mmol/L (3.5-5.1); Sodium 141 mmol/L (136-145); Total Protein 6.3 g/dL (5.7-8.2)
[2024-11-20 05:53] LABS: Alanine Aminotransferase 440 U/L (7-40); Alkaline Phosphatase 158 U/L (46-116); Aspartate Aminotransferase 435 U/L (13-40); Bilirubin, Total 0.9 mg/dL (0.2-1.0); Blood Urea Nitrogen 60 mg/dL (9-23); Glucose 127 mg/dL (74-106); Phosphorus 7.1 mg/dL (2.4-5.1)
[2024-11-20 06:15] LABS: LDL Cholesterol 39 mg/dL (< 100)
[2024-11-20 06:16] LABS: Cholesterol 126 mg/dL (< 200); HDL Cholesterol 55 mg/dL (40-59)
[2024-11-20 06:17] LABS: Triglycerides 182 mg/dL (< 150)
[2024-11-20 07:15] LABS: Base Excess 3.9 mmol/L (-2.0-3.0)
[2024-11-20] MEDS ORDERED: DOPamine 1600MCG/ML D5W 250 ML IV SCH (08:00)
[2024-11-20] MEDS: AMIODARONE HCL 200 MG TAB PO SCH (10:00)
[2024-11-20] MEDS: PANTOPRAZOLE 40 MG/10 ML VIAL INJ IV SCH (10:05)
[2024-11-20] MEDS: ASPirin 81 mg TAB PO SCH (10:06)
[2024-11-20] MEDS: HEPARIN SODIUM (PORCINE) 5000 UNITS/ML 1ML VIAL SC SCH (10:07)
--- NOTE | 2024-11-20 10:12 | DVHPNRES ---
Progress Note Date Seen: Nov 20, 2024 Resident Creating Document: SOLEDAD PONCE RESIDENT Medical Necessity Reason Pt with a Central, PICC or Fol: Yes The following are medically ne: Central Line, Ryan Catheter Subjective Review of Systems This is a 54-year-old male who presents to the ED via EMS due to cardiac arrest. Past medical history: Diabetes, dyslipidemia, hypertension end-stage renal disease on dialysis(since 12 years ago) 3 times a week (Tuesday, Tuesday and Tuesday) last session on Tuesday, coronary artery disease with history of [place] status post multiple PCI with a total of eight ZAK placed (last one in 2020), and CABG 2020, erectile dysfunction status postop Surgical history: Av fistula on right arm, CABG in 2020, multiple PCI with a total of eight stents placed last one in 2020 (last coronary angiography was in 2020 as well) Family history: Noncontributory Social history: Lives with family in [place], kelly (Monika) is the next of kin. Quit tobacco and illicit drugs use approximately 20 years ago (10 pack- year history). Denies current tobacco, alcohol and other drug abuse Allergies: Amlodipine Home medication: does not recall. Knows he is on aspirin atorvastatin Information was gathered from EMR and . Per EMS report, patient experienced a witnessed arrest at home, family reported patient complaint of chest pain before arrest, and he was also having worsening chest pain for the past month which was partially relieved by nitroglycerin. He got home [employer] work feeling tired, and passed out.He was unresponsive, EMS was called. Estimated downtime of less than 10 minutes at home. During pre-hospital resuscitation EMS administered three doses of epi, one dose of permanent, one dose of calcium, achieving ROSC twice in route. During period in ER patient coded twice, with evidence of ventricular fibrillation, delivered one shock (200 joules) and obtaining ROSC. Per ER nurse at bedside patient's last dialysis session was on Tuesday, he did not obtain dialysis session today. Patient seen and examined at bedside. Patient currently under mechanical ventilation assistance. On propofol and Versed, on vasopressor levophed. He received hemodialysis yesterday, potassium back to normal. He's pupils were barely reactive and myotic, we will come down on sedation Objective vital signs Vital Sign Date Time Temp Pulse Resp B/P (MAP) Pulse Ox O2 Delivery O2 Flow Rate FiO2 11/20/24 08:24 89 16 119/73 (88) 99 30 11/20/24 06:15 98.1 208.6 11/20/24 06:00 Mechanical Ventilator+ Total Intake and Output 11/19/24 11/19/24 11/20/24 15:00 23:00 07:00 Intake Total 322.389 ml 381.906 ml Output Total 0 ml Balance 322.389 ml 381.906 ml medications Current Medications Medications Dose Ordered Sig/Gabby Route Start Time Stop Time Status Last Admin Dose Admin Propofol 100 ml @ 2.79 mls/hr Q24H IV 11/19/24 17:45 11/20/24 09:33 27.896 MLS/HR Midazolam HCl 50 ml @ 1 mls/hr Q24H IV 11/19/24 17:45 11/20/24 07:37 14 MLS/HR Fentanyl Citrate 250 ml @ 2.5 mls/hr Q24H IV 11/19/24 17:45 11/20/24 01:00 2.5 MLS/HR Norepinephrine Bitartrate 250 ml @ 3.75 mls/hr Q24H IV 11/19/24 19:45 Pantoprazole Sodium 40 mg DAILY IV 11/20/24 10:00 Heparin Sodium (Porcine) 5,000 units Q12HR SC 11/20/24 10:00 Amiodarone HCl 400 mg Q12HR PO 11/20/24 10:00 Aspirin 81 mg DAILY PO 11/20/24 10:00 Atorvastatin Calcium 40 mg HS PO 11/20/24 22:00 Diagnostic Test (Pha) 1 strip IQ4HR 11/20/24 04:00 11/20/24 08:56 1 STRIP Insulin Human Regular IQ4HR SC 11/20/24 04:00 Dextrose 50 ml UD PRN IV 11/20/24 02:15 Cefepime HCl 50 ml @ 12.5 mls/hr DAILY IV 11/20/24 10:00 UNV Examination General: RASS -3, afebrile, mucosae are moist Cardiovascular: Normal S1 and S2. No murmurs, gallops or rubs Respiratory: Mechanically assisted ventilation, equal bilateral airway entree. Scattered crackles Abdomen: Soft, nontender, no organomegaly, normal bowel sounds. OG tube with brown fluid, on aspiration MSK/skin: Mobilization of limbs cannot be evaluated. Skin is dry and warm. Has right femoral central line with no signs of infection Neurological: Sedated, no gag reflex laboratory and microbiology Laboratory Tests 11/20/24 04:02 Test 11/20/24 04:02 Range/Units Serum Glucose 127 H 74-106 mg/dL Labs and/or images reviewed: Labs reviewed by me, Image(s) reviewed by me Problem List/Assessment/Plan Problem List/Assessment/Plan Neurology #Metabolic encephalopathy #Possible Anoxic brain injury Head CT unremarkable Sedation vacation, no gag reflex yet, pupils going mydriatic We will repeat brain imaging in 2 days Cardiovascular #Cardiac arrest status post ROSC x5 #Cardiac arrhythmia (V-Fib and pulseless V-Tach) - etiology electrolyte alteration vs ischemia #History of CAD status post CABG (2020) #PCIx8 #Chest pain, NSTEMI, rule out type 1 #Dyslipidemia #H/o hypertension Consulted cardiology, [facility] tomorrow Continue amiodarone po Discontinue dopamine Maintain map above 60, Levophed standby Echo pending Pulmonology #Acute hypoxic respiratory failure on mechanical ventilation #Possible aspiration pneumonia, Gram-positive versus Gram-negative MV: FIO2 30%, PEEP 5, TV 500, RR 20 Cefepime IV Nephrology #End-stage renal disease on hemodialysis #Hyperkalemia, improving Nephrology following Endocrinology #Type 2 diabetes SSI mild Gastroenterology #Transaminitis, likely liver shock Monitor Feedings: Start Nepro Hematology and Oncology #Anemia, mild, microcytic, normochromic Monitor Infectious Disease #Possible aspiration pneumonia, Gram-positive versus Gram-negative Continue cefepime IV Dermatology x DVT ppx Heparin SC PUD ppx Protonix Drips dc Dopamine Levophed Versed, sedation vacation Prop, sedation vacation Fent Lines R femoral TLC, 11/19/24 ET tube, 11/19/24 Critical care time spent outside of procedures: 92 mins Goals of care we discussed with spouse for over 30 minutes. FULL CODE. Patient is not stable for transferred to [place]. Case was discussed with Dr. Evangelista Plan discussed with: Spouse, Other (RN) My Orders My Orders Orders - SOLEDAD PONCE RESIDENT Procedure Category Date Status Time Urine Bacterial URBANO 11/20/24 Logged Culture 08:05 Covid19 Antigen [facility] LAB 11/20/24 Logged Rapid Influenza A&B LAB 11/20/24 Logged 08:05 Cefepime 1gm/ 50ml PHA 11/20/24 Logged (Maxipime 1gm/50ml) 10:00 * Picc Line Consult CONS 11/20/24 Transmitted 09:52 Date of Service: Nov 20, 2024 Billing Provider: WM EVANGELISTA MD Common Visit Codes: [id number] CARE 30-74 MIN, [id number] CARE-EACH +30MIN SOLEDAD PONCE RESIDENT Nov 20, 2024 10:11 WM EVANGELISTA MD Nov 21, 2024 15:19
--- NOTE | 2024-11-20 10:29 | DVHINCON2 ---
Date of service: Nov 20, 2024 Reason for Consultation End-stage renal disease History of Present Illness 54-year-old male history obtained from family at bedside as patient was intubated. Patient has a history of end-stage renal disease for last 13 years and severe coronary artery disease with multivessel CABG as well as multiple stents in the past, and hypertension. Patient received hemodialysis on Tuesday and Tuesday with his last hemodialysis treatment on Tuesday. Per family at bedside patient has intermittent chest pain with exertion and on Tuesday was complaining of chest pain and took nitro at home. He went to work on Tuesday and at the end of the day patient was complaining of chest discomfort and became unresponsive. CPR was initiated by family as well as EMS. Patient had multiple episodes of cardiac arrests in the ER as well. Patient was transferred to the ICU due to cardiogenic shock and emergent hemodialysis was given due to severe hyperkalemia. Notable medications include carvedilol, losartan Patient was currently seen now in the ICU intubated, on pressors Allergies: Coded Allergies: Amlodipine (Verified Allergy, Unknown, 11/20/24) Current Medications Current Medications Medications (Trade) Dose Ordered Sig/Gabby Route PRN Reason Start Time Stop Time Status Last Admin Propofol 100 ml @ 2.79 mls/hr Q24H IV 11/19/24 17:45 11/20/24 09:33 Midazolam HCl 50 ml @ 1 mls/hr Q24H IV 11/19/24 17:45 11/20/24 07:37 Fentanyl Citrate 250 ml @ 2.5 mls/hr Q24H IV 11/19/24 17:45 11/20/24 01:00 Norepinephrine Bitartrate 250 ml @ 3.75 mls/hr Q24H IV 11/19/24 19:30 11/19/24 19:45 DC Norepinephrine Bitartrate 250 ml @ 3.75 mls/hr Q24H IV 11/19/24 19:45 Ondansetron HCl (Zofran) 4 mg Q4HP PRN IV NAUSEA / VOMITING 11/19/24 20:45 11/20/24 08:18 DC Pantoprazole Sodium (Protonix) 40 mg DAILY IV 11/20/24 10:00 Heparin Sodium (Porcine) 5,000 units Q12HR SC 11/20/24 10:00 Amiodarone HCl (Cordarone Tablet) 400 mg Q12HR PO 11/20/24 10:00 Aspirin 81 mg DAILY PO 11/20/24 10:00 Atorvastatin Calcium (Lipitor) 40 mg HS PO 11/20/24 22:00 Diagnostic Test (Pha) (Accu-Chek Comfort Curve T) 1 strip IQ4HR 11/20/24 04:00 11/20/24 08:56 Insulin Human Regular (InsuLIN R) IQ4HR SC 11/20/24 04:00 Dextrose 50 ml UD PRN IV Blood Sugar LESS THAN 60 11/20/24 02:15 Dopamine HCl/ Dextrose 250 ml @ 14.569 mls/ hr [id number] IV 11/20/24 08:00 11/20/24 08:18 DC Cefepime HCl 50 ml @ 12.5 mls/hr DAILY IV 11/20/24 10:00 UNV Family History: Diabetes mellitus G8 FATHER Review of Systems Can not obtain due to critical illness H&P Exam Vital Signs/I&O Vital Sign Date Time Temp Pulse Resp B/P (MAP) Pulse Ox O2 Delivery O2 Flow Rate FiO2 11/20/24 08:24 89 16 119/73 (88) 99 30 11/20/24 06:15 98.1 208.6 11/20/24 06:00 Mechanical Ventilator+ Intake and Output 11/19/24 11/20/24 18:59 06:59 Intake Total 704.295 ml Output Total 0 ml Balance 704.295 ml Intake IV Total 704.295 ml Output Urine Total 0 ml Physical Exam Middle-aged male Appears ill Intubated On pressors Heart rate in the 60s Bruising over the bilateral upper and lower extremities right arm AV fistula Labs/Diagnostic Data Labs/Diagnostic Data Laboratory Tests Test 11/20/24 09:50 11/20/24 08:55 11/20/24 07:01 11/20/24 04:58 Range/Units POC Glucose 109 H 124 H 70-106 mg/dl Blood Gas Specimen Type Arterial Blood Gas Sample Site Left brachial Blood Gas Patient Temperature 37.0 Arterial Blood Date Drawn [id number] Arterial Blood pH 7.430 7.350-7.450 Arterial Blood Partial Pressure CO2 44.3 35.0-48.0 mmHg Arterial Blood Partial Pressure O2 89.1 83.0-108.0 mmHg Arterial Blood HCO3 28.7 H 21.0-28.0 mmol/L Arterial Blood Oxygen Saturation 95.4 94.0-98.0 % Arterial Blood Base Excess 3.9 H -2.0-3.0 mmol/L Arterial Blood Oxyhemoglobin 94.2 94.0-98.0 % Arterial Blood Carboxyhemoglobin 1.0 0.5-1.5 % Arterial Blood Methemoglobin 0.3 0.0-1.5 % Miguel Test N/a Blood Gas Total Hemoglobin 12.40 L 13.5-17.5 g/dL Blood Gas Set Respiration Rate 16.0 Blood Gas Modality Vent - ac FiO2 % 30.0 Blood Gas Tidal Volume 500.0 Blood Gas PEEP or CPAP 5.0 Test 11/20/24 04:02 11/19/24 19:50 11/19/24 19:25 11/19/24 19:15 Range/Units White Blood Count 13.3 #H 4.4-10.8 10^3/uL Red Blood Count 3.47 L 4.5-5.90 10^6/uL Hemoglobin 11.2 #L 13.5-17.5 g/dL Hematocrit 34.8 #L 41.0-53.0 % Mean Corpuscular Volume 100.3 #H 80.0-100.0 fL Mean Corpuscular Hemoglobin 32.2 H 28.0-32.0 pg Mean Corpuscular Hemoglobin Concent 32.1 32.0-36.0 g/dL Red Cell Distribution Width 15.7 H 11.8-14.3 % Platelet Count 160 140-450 10^3/uL Mean Platelet Volume 8.4 6.9-10.8 fL Neutrophils (%) (Auto) 89.4 H 37.0-80.0 % Lymphocytes (%) (Auto) 2.8 L 10.0-50.0 % Monocytes (%) (Auto) 7.3 0.0-12.0 % Eosinophils (%) (Auto) 0.1 0.0-7.0 % Basophils (%) (Auto) 0.4 0.0-2.0 % Neutrophils # (Auto) 11.9 H 1.6-8.6 10 ^3/uL Lymphocytes # (Auto) 0.4 0.4-5.4 10 ^3/uL Monocytes # (Auto) 1.0 0-1.3 10 ^3/uL Eosinophils # (Auto) 0 0-0.8 10 ^3/uL Basophils # (Auto) 0.1 0-0.2 10 ^3/uL Nucleated Red Blood Cells 0.0 % Prothrombin Time 11.9 H 9.3-11.8 sec Prothrombin Time INR 1.14 0.9-1.15 Activated Partial Thromboplast Time 29.6 24.5-34.5 SEC Sodium Level 141 141 # 136-145 mmol/L Potassium Level 4.9 6.8 *H 3.5-5.1 mmol/L Chloride Level 99 101 98-107 mmol/L Carbon Dioxide Level 27 # 16 L 20-31 mmol/L Anion Gap 15 24 H 5-15 Blood Urea Nitrogen 60 #H 97 *H 9-23 mg/dL Creatinine 9.07 #H 13.00 *H 0.700-1.30 mg/dL Glomerular Filtration Rate Calc 6 4 >90 mL/min BUN/Creatinine Ratio 6.6 L 7.5 L 10.0-20.0 Serum Glucose 127 H 206 H 74-106 mg/dL Hemoglobin A1c 5.5 <5.7 % A1C Lactic Acid Level 1.4 4.1 *H 0.4-2.0 mmol/L Calcium Level 10.0 11.0 H 8.7-10.4 mg/dL Phosphorus Level 7.1 H 2.4-5.1 mg/dL Magnesium Level 2.5 1.6-2.6 mg/dL Total Bilirubin 0.9 0.2-1.0 mg/dL Aspartate Amino Transferase (AST) 435 H 13-40 U/L Alanine Aminotransferase (ALT) 440 H 7-40 U/L Alkaline Phosphatase 158 H 46-116 U/L Troponin I High Sensitivity 1067 *H </=54 ng/L Total Protein 6.3 5.7-8.2 g/dL Albumin 3.6 3.2-4.8 g/dL Triglycerides Level 182 H < 150 mg/dL Cholesterol Level 126 < 200 mg/dL LDL Cholesterol 39 < 100 mg/dL HDL Cholesterol 55 40-59 mg/dL Vitamin B12 Level 821 211-911 pg/mL Vitamin D 25-Hydroxy 19.8 L 30.0-100 ng/mL Thyroid Stimulating Hormone (TSH) 0.82 0.55-4.78 uIU/mL POC Glucose 192 H 70-106 mg/dl Creatine Kinase 352 H 46-171 U/L Test 11/19/24 19:01 11/19/24 18:30 11/19/24 18:15 11/19/24 17:37 Range/Units Blood Gas Specimen Type Arterial Arterial Blood Gas Sample Site Left radial Left radial Blood Gas Patient Temperature 37.0 37.0 Arterial Blood Date Drawn [id number] Arterial Blood pH 7.242 *L 7.243 *L 7.350-7.450 Arterial Blood Partial Pressure CO2 33.2 L 32.5 L 35.0-48.0 mmHg Arterial Blood Partial Pressure O2 96.5 > 529.9 *H 83.0-108.0 mmHg Arterial Blood HCO3 14.0 L 13.7 L 21.0-28.0 mmol/L Arterial Blood Oxygen Saturation 94.8 99.7 H 94.0-98.0 % Arterial Blood Base Excess -12.2 L -12.5 L -2.0-3.0 mmol/L Arterial Blood Oxyhemoglobin 93.7 L 98.5 H 94.0-98.0 % Arterial Blood Carboxyhemoglobin 0.7 0.8 0.5-1.5 % Arterial Blood Methemoglobin 0.5 0.4 0.0-1.5 % Miguel Test N/a N/a Blood Gas Total Hemoglobin 13.30 L 12.60 L 13.5-17.5 g/dL Blood Gas Set Respiration Rate 16.0 16.0 Blood Gas Modality Vent - ac Vent - ac FiO2 % 30.0 100.0 Blood Gas Tidal Volume 500.0 500.0 Blood Gas PEEP or CPAP 5.0 5.0 Specimen Drawn By Wildland Firefighter ronak vail [employer] Firefighter ronak vail Blood Gas Critical Value Read Back Yes Yes Blood Gas Notified Whom clinton Jacob Md, c. Blood Gas Notified Time [id number] Blood Gas Notified By Wildland Firefighter clinton gonzalez Md Troponin I High Sensitivity 105 *H 56 *H </=54 ng/L White Blood Count 9.7 4.4-10.8 10^3/uL Red Blood Count 4.04 L 4.5-5.90 10^6/uL Hemoglobin 13.3 L 13.5-17.5 g/dL Hematocrit 43.0 41.0-53.0 % Mean Corpuscular Volume 106.4 H 80.0-100.0 fL Mean Corpuscular Hemoglobin 32.8 H 28.0-32.0 pg Mean Corpuscular Hemoglobin Concent 30.8 L 32.0-36.0 g/dL Red Cell Distribution Width 16.8 H 11.8-14.3 % Platelet Count 193 140-450 10^3/uL Mean Platelet Volume 9.8 6.9-10.8 fL Neutrophils (%) (Auto) 37.0-80.0 % Lymphocytes (%) (Auto) 10.0-50.0 % Monocytes (%) (Auto) 0.0-12.0 % Basophils (%) (Auto) 0.0-2.0 % Neutrophils # (Auto) 1.6-8.6 10 ^3/uL Lymphocytes # (Auto) 0.4-5.4 10 ^3/uL Monocytes # (Auto) 0-1.3 10 ^3/uL Differential Total Cells Counted 100.0 100 Neutrophils % (Manual) 60 37.0-80.0 Band Neutrophils % (Manual) 3 Lymphocytes % (Manual) 24 10.0-50.0 Monocytes % (Manual) 12 0-12 Eosinophils % (Manual) 1 0-7 Basophils % (Manual) 0 0.0-2.0 Metamyelocytes % (manual) 0 Myelocytes % (Manual) 0 Promyelocytes % (Manual) 0 Blast Cells % (Manual) 0 Reactive Lymphocytes 0 Platelet Estimate Adequate Anisocytosis (manual) Slight Macrocytosis Moderate Sodium Level 136 136-145 mmol/L Potassium Level 8.7 *H 3.5-5.1 mmol/L Chloride Level 98 98-107 mmol/L Carbon Dioxide Level 15 L 20-31 mmol/L Anion Gap 23 H 5-15 Blood Urea Nitrogen 101 *H 9-23 mg/dL Creatinine 13.35 *H 0.700-1.30 mg/dL Glomerular Filtration Rate Calc 4 >90 mL/min BUN/Creatinine Ratio 7.6 L 10.0-20.0 Serum Glucose 244 H 74-106 mg/dL Lactic Acid Level 5.7 *H 0.4-2.0 mmol/L Calcium Level 11.0 H 8.7-10.4 mg/dL Magnesium Level 2.7 H 1.6-2.6 mg/dL Total Bilirubin 0.4 0.2-1.0 mg/dL Aspartate Amino Transferase (AST) 498 H 13-40 U/L Alanine Aminotransferase (ALT) 488 H 7-40 U/L Alkaline Phosphatase 237 H 46-116 U/L Total Protein 7.2 5.7-8.2 g/dL Albumin 4.3 3.2-4.8 g/dL Assessment Admitted for cardiac arrest End-stage renal disease on hemodialysis Hyperkalemia Acute respiratory failure Extensive coronary history with cardiac arrest Status post hemodialysis Pressor adjustment to maintain mean arterial pressure greater than 65 Avoid hypotension Cardiology consultation Patient was anuric however I do recommend recording and monitoring daily input to prevent fluid overload Next hemodialysis treatment will be based on daily assessment Patient was critically ill with very poor prognosis given multiple cardiac events I have discussed this with family at bedside Critical care time spent 40 minutes Plan discussed with: Spouse REBECCA CATALAN MD Nov 20, 2024 10:28
--- NOTE | 2024-11-20 11:58 | DVHINCON2 ---
Date Seen: Nov 20, 2024 Referring Physician MD Alverto Reason for Consultation NSTEMI History of Present Illness This is a 54-year-old man who presented to the emergency room via EMS with a chief complaint of cardiopulmonary arrest. At time of assessment, the patient was found endotracheally intubated with 30% FiO2 PEEP 5, on single-vasopressor, and chemically sedated. Information obtained from at bedside and records which indicate the patient complaint of feeling ill after returning from work with subsequent dizziness after taking a shower. witnessed a cardiac arrest for which she initiated immediate CPR and daughter called 911. Upon EMS arrival the patient was found in a ventricular fibrillation rhythm undergoing one shock at 200 J with transient ROSC. En route to the hospital the patient lost pulses and was administered epinephrine x3 rounds, sodium bicarbonate x1 round, and calcium chloride x1 around. Upon arrival to the emergency room there was active CPR in progress via Teddy machine. ACLS protocol continued, see resuscitation status report. Per , the patient has been complaining any of intermittent left-sided chest pain for approximately one month with latest event this past Tuesday where he took NTG SL with some relief of symptoms. Twelve lead electrocardiograms reviewed revealing a sinus rhythm with lateral T-wave inversion, anterior ST depression, and associated right bundle branch block. Troponin levels peaked at 1067 ng/L. Significant medical history includes severe coronary artery disease undergoing multiple PTCAs including six ZAK status post single-vessel CABG with PTCA including 2 ZAK at [facility] on 2020, hypertension, dyslipidemia, insulin-dependent diabetes mellitus, end- stage renal disease on HD on , and erectile dysfunction status post-op. Past Medical History Past medical history reviewed. No other significant than mentioned above. Past Surgical History Multiple PTCAs including eight ZAK Single-vessel CABG Erectile dysfunction postop Right forearm AV fistula Appendectomy Family History: Diabetes mellitus G8 FATHER Family History Family history reviewed. Social History Per , no use of tobacco or illicit drug use. Reports occasional alcohol use. Allergies: Coded Allergies: Amlodipine (Verified Allergy, Unknown, 11/20/24) Home Meds Unable to retrieve home medications. Current Medications Current Medications Medications (Trade) Dose Ordered Sig/Gabby Route PRN Reason Start Time Stop Time Status Last Admin Propofol 100 ml @ 2.79 mls/hr Q24H IV 11/19/24 17:45 11/20/24 09:33 Midazolam HCl 50 ml @ 1 mls/hr Q24H IV 11/19/24 17:45 11/20/24 11:03 Fentanyl Citrate 250 ml @ 2.5 mls/hr Q24H IV 11/19/24 17:45 11/20/24 01:00 Norepinephrine Bitartrate 250 ml @ 3.75 mls/hr Q24H IV 11/19/24 19:30 11/19/24 19:45 DC Norepinephrine Bitartrate 250 ml @ 3.75 mls/hr Q24H IV 11/19/24 19:45 Ondansetron HCl (Zofran) 4 mg Q4HP PRN IV NAUSEA / VOMITING 11/19/24 20:45 11/20/24 08:18 DC Pantoprazole Sodium (Protonix) 40 mg DAILY IV 11/20/24 10:00 11/20/24 10:05 Heparin Sodium (Porcine) 5,000 units Q12HR SC 11/20/24 10:00 11/20/24 10:07 Amiodarone HCl (Cordarone Tablet) 400 mg Q12HR PO 11/20/24 10:00 Aspirin 81 mg DAILY PO 11/20/24 10:00 11/20/24 10:06 Atorvastatin Calcium (Lipitor) 40 mg HS PO 11/20/24 22:00 Diagnostic Test (Pha) (Accu-Chek Comfort Curve T) 1 strip IQ4HR 11/20/24 04:00 11/20/24 08:56 Insulin Human Regular (InsuLIN R) IQ4HR SC 11/20/24 04:00 Dextrose 50 ml UD PRN IV Blood Sugar LESS THAN 60 11/20/24 02:15 Dopamine HCl/ Dextrose 250 ml @ 14.569 mls/ hr [id number] IV 11/20/24 08:00 11/20/24 08:18 DC Cefepime HCl 50 ml @ 12.5 mls/hr DAILY IV 11/20/24 10:00 UNV Review of Systems Constitutional: No symptom reported Ears, Nose, & Throat: No symptom reported Eyes: No symptom reported Neurological: Dizziness Pulmonary/Respiratory: No symptom reported Cardiovascular: Chest pain, cardiopulmonary arrest Gastrointestinal: No symptom reported Genitourinary: No symptom reported Musculoskeletal: No symptom reported Skin: No symptom reported Psychiatric: No symptom reported Endocrine: No symptom reported Hemotologic/Lymphatic: No symptom reported Vital Signs Vital Signs Date Time Temp Pulse Resp B/P (MAP) Pulse Ox O2 Delivery O2 Flow Rate FiO2 11/20/24 11:32 63 16 117/63 (81) 99 30 11/20/24 10:00 Mechanical Ventilator+ 11/20/24 06:15 98.1 208.6 Physical Exam General Appearance: Withdrawn. Chemically sedated. Endotracheally intubated Head Exam: Normal inspection Neck Exam: Normal inspection. Normal alignment Pulmonary/Respiratory: Clear bilateral breath sounds. Endotracheally intubated 30% FiO2 Cardiovascular/Chest: Regular rate and rhythm. S1, S2. Sinus rhythm with ST segment depression to anterior leads. T-wave inversion to lateral leads. RBBB Peripheral Pulses: 2+ Radial (R). 2+ Radial (L). 2+ Pedal (R). 2+ Pedal (L) Abdominal Exam: Normal bowel sounds. Soft. Nontender. No hepatospenomegaly. No masses Ankle Exam: Negative ankle edema Lower extremities: Negative lower extremity edema Neuro/Mental Status: Chemically sedated. Withdrawn Thoughts/Psych: Unable to assess at this time Appearance: Withdrawn Skin Exam: Hyperpigmented left lower extremity at fam area Labs/Diagnostic Data Labs Test 11/20/24 09:50 11/20/24 08:55 11/20/24 07:01 11/20/24 04:02 Range/Units Troponin I High Sensitivity 1000 *H </=54 ng/L POC Glucose 109 H 70-106 mg/dl Blood Gas Specimen Type Arterial Blood Gas Sample Site Left brachial Blood Gas Patient Temperature 37.0 Arterial Blood Date Drawn [id number] Arterial Blood pH 7.430 7.350-7.450 Arterial Blood Partial Pressure CO2 44.3 35.0-48.0 mmHg Arterial Blood Partial Pressure O2 89.1 83.0-108.0 mmHg Arterial Blood HCO3 28.7 H 21.0-28.0 mmol/L Arterial Blood Oxygen Saturation 95.4 94.0-98.0 % Arterial Blood Base Excess 3.9 H -2.0-3.0 mmol/L Arterial Blood Oxyhemoglobin 94.2 94.0-98.0 % Arterial Blood Carboxyhemoglobin 1.0 0.5-1.5 % Arterial Blood Methemoglobin 0.3 0.0-1.5 % Miguel Test N/a Blood Gas Total Hemoglobin 12.40 L 13.5-17.5 g/dL Blood Gas Set Respiration Rate 16.0 Blood Gas Modality Vent - ac FiO2 % 30.0 Blood Gas Tidal Volume 500.0 Blood Gas PEEP or CPAP 5.0 White Blood Count 13.3 #H 4.4-10.8 10^3/uL Red Blood Count 3.47 L 4.5-5.90 10^6/uL Hemoglobin 11.2 #L 13.5-17.5 g/dL Hematocrit 34.8 #L 41.0-53.0 % Mean Corpuscular Volume 100.3 #H 80.0-100.0 fL Mean Corpuscular Hemoglobin 32.2 H 28.0-32.0 pg Mean Corpuscular Hemoglobin Concent 32.1 32.0-36.0 g/dL Red Cell Distribution Width 15.7 H 11.8-14.3 % Platelet Count 160 140-450 10^3/uL Mean Platelet Volume 8.4 6.9-10.8 fL Neutrophils (%) (Auto) 89.4 H 37.0-80.0 % Lymphocytes (%) (Auto) 2.8 L 10.0-50.0 % Monocytes (%) (Auto) 7.3 0.0-12.0 % Eosinophils (%) (Auto) 0.1 0.0-7.0 % Basophils (%) (Auto) 0.4 0.0-2.0 % Neutrophils # (Auto) 11.9 H 1.6-8.6 10 ^3/uL Lymphocytes # (Auto) 0.4 0.4-5.4 10 ^3/uL Monocytes # (Auto) 1.0 0-1.3 10 ^3/uL Eosinophils # (Auto) 0 0-0.8 10 ^3/uL Basophils # (Auto) 0.1 0-0.2 10 ^3/uL Nucleated Red Blood Cells 0.0 % Prothrombin Time 11.9 H 9.3-11.8 sec Prothrombin Time INR 1.14 0.9-1.15 Activated Partial Thromboplast Time 29.6 24.5-34.5 SEC Sodium Level 141 136-145 mmol/L Potassium Level 4.9 3.5-5.1 mmol/L Chloride Level 99 98-107 mmol/L Carbon Dioxide Level 27 # 20-31 mmol/L Anion Gap 15 5-15 Blood Urea Nitrogen 60 #H 9-23 mg/dL Creatinine 9.07 #H 0.700-1.30 mg/dL Glomerular Filtration Rate Calc 6 >90 mL/min BUN/Creatinine Ratio 6.6 L 10.0-20.0 Serum Glucose 127 H 74-106 mg/dL Hemoglobin A1c 5.5 <5.7 % A1C Lactic Acid Level 1.4 0.4-2.0 mmol/L Calcium Level 10.0 8.7-10.4 mg/dL Phosphorus Level 7.1 H 2.4-5.1 mg/dL Magnesium Level 2.5 1.6-2.6 mg/dL Total Bilirubin 0.9 0.2-1.0 mg/dL Aspartate Amino Transferase (AST) 435 H 13-40 U/L Alanine Aminotransferase (ALT) 440 H 7-40 U/L Alkaline Phosphatase 158 H 46-116 U/L Total Protein 6.3 5.7-8.2 g/dL Albumin 3.6 3.2-4.8 g/dL Triglycerides Level 182 H < 150 mg/dL Cholesterol Level 126 < 200 mg/dL LDL Cholesterol 39 < 100 mg/dL HDL Cholesterol 55 40-59 mg/dL Vitamin B12 Level 821 211-911 pg/mL Vitamin D 25-Hydroxy 19.8 L 30.0-100 ng/mL Thyroid Stimulating Hormone (TSH) 0.82 0.55-4.78 uIU/mL Test 11/19/24 19:15 11/19/24 19:01 11/19/24 17:37 Range/Units Creatine Kinase 352 H 46-171 U/L Specimen Drawn By Geological Manager ronak vail Blood Gas Critical Value Read Back Yes Blood Gas Notified Whom clinton Jacob Blood Gas Notified Time [id number] Blood Gas Notified By Geological Manager ronak vail Differential Total Cells Counted 100.0 100 Neutrophils % (Manual) 60 37.0-80.0 Band Neutrophils % (Manual) 3 Lymphocytes % (Manual) 24 10.0-50.0 Monocytes % (Manual) 12 0-12 Eosinophils % (Manual) 1 0-7 Basophils % (Manual) 0 0.0-2.0 Metamyelocytes % (manual) 0 Myelocytes % (Manual) 0 Promyelocytes % (Manual) 0 Blast Cells % (Manual) 0 Reactive Lymphocytes 0 Platelet Estimate Adequate Anisocytosis (manual) Slight Macrocytosis Moderate Assessment Non ST-elevation myocardial infarction Pulseless monomorphic ventricular tachycardia/ventricular fibrillation arrest with ROSC Rule out progressive coronary artery disease Acute on chronic decompensated HFrEF, newly diagnosed Severe coronary artery disease s/p PTCAs including 8 ZAK and single-vessel CABG (on ASA) Insulin-dependent diabetes mellitus Dyslipidemia ESRD on HD Elevated LFTs Plan/Recommendation (Dr. Monroe) Scheduled for a cardiac catheterization and coronary angiogram with Dr. Monroe at first available. Risks and benefits of the procedure were discussed with at bedside who agrees to proceed with intervention. All questions answered. In the meantime, continue with a transthoracic echocardiogram to evaluate cardiac function. Initiate heparin drip per pharmacy protocol for ACS. Continue single antiplatelet therapy and lipid lowering agent. Continue antiarrhythmic, amiodarone. Monitor LFTs closely. Monitor ECG changes closely and notify. Further orders per clinical course. Thank you for allowing us to participate in this patient's care. Please call if you have any questions or concerns. Critical care time: 45 min. This medical document was created using an electronic medical record system with voice recognition software and computerized dictation system. Although this document has been carefully reviewed, there might still be some phonetic and typographical errors. Occasional wrong-word or ``sound-alike substitutions may have occurred due to the inherent limitations of voice recognition software. These areas are purely typographical due to imperfections of the software programs and do not reflect any compromise in the patient's medical care. Please read the chart carefully and recognize, using context, where these substitutions have occurred. Plan discussed with: Spouse, Other NYHA Physical activity limitations: Class3(Marked) ordinary Date of Service: Nov 20, 2024 Billing Provider: PRICE MUÑIZ Cardiology Common Codes: 76141-[id number] CARE 30-74 MIN PRICE MUÑIZ Nov 20, 2024 11:57
--- NOTE | 2024-11-20 12:27 | CONS ---
Pharmacy Clinical Information: START NEW HEP DRIP RATE 900 UNITS/HR OR 9 ML/HR AND GIVE BOLUS 4000 UNITS ONE TIME PER RX PROTOCOL NEXT APTT SONJA 6 HOURS FROM START OF THE DRIP. WILDER VEGA AWARE TO START DRIP AND GIVE BOLUS GENA FRANKLIN PHARMACIST Nov 20, 2024 12:27
[2024-11-20] MEDS: HEPARIN SODIUM (PORCINE) 5000 UNITS/ML 1ML VIAL IV ONE (13:11)
[2024-11-20] MEDS: HEPARIN DRIP/D5W 100UNITS/ML 250 ML IV SCH ×2 (13:12→22:15)
[2024-11-20] MEDS: CEFEPIME 1GM/ 50ML 50 ML IV SCH (15:48)
[2024-11-20] MEDS ORDERED: LOSA-534 PO (18:46)
[2024-11-20] MEDS ORDERED: NITR0.4S29 SL (18:46)
[2024-11-20] MEDS ORDERED: ATOR-47 PO (18:46)
[2024-11-20] MEDS ORDERED: ASPI-543 PO (18:46)
[2024-11-20] MEDS ORDERED: CARV12.544 PO (18:46)
[2024-11-20] MEDS ORDERED: TRAZ-227 PO (18:46)
[2024-11-20] MEDS ORDERED: CLOP75TA70 PO (18:46)
[2024-11-20 19:32] LABS: COVID19 ANTIGEN SOFIA FIA NEGATIVE (NEGATIVE); Rapid Influenza A Negative (Negative); Rapid Influenza B Negative (Negative)
[2024-11-20 20:13] LABS: INR 1.15 (0.9-1.15)
[2024-11-20 20:18] LABS: Partial Thromboplastin Time 99.9 SEC (24.5-34.5)
[2024-11-20 21:08] LABS: INR 1.83 (0.9-1.15); Prothrombin Time 18.3 sec (9.3-11.8)
[2024-11-20 21:12] LABS: Partial Thromboplastin Time 116.1 SEC (24.5-34.5)
--- NOTE | 2024-11-20 21:26 | CONS ---
Pharmacy Clinical Information: HEPARIN PER PHARMACY SPOKE TO GARY YOUNG REGARDING HEPARIN DOSE CHANGE CURRENT DOSE 900 UNITS/HR CURRENT aPTT: 116.1 ON 11/20/24 AT 2009 BOLUS: NO HOLD DOSE 1 HR: YES, RN HELD HEPARIN DRIP AT 2114 ON 11/20/24 DATE AND TIME HEPARIN DRIP WILL BE RESUMED AT NEW RATE 600 UNITS/HR: 2214 ON 11/20/24 GARY YOUNG READ BACK NEW DOSE 600 UNITS/HR RESUMED ON 11/20/24 AT 2215 CARLYN [place] Nov 20, 2024 21:26
[2024-11-20] MEDS: SODIUM CHLOR 0.9% PF (SALINE LOCK) 10ML VIAL/SYR IV SCH (21:54)
[2024-11-20] MEDS: ATORVASTATIN 20 MG TAB PO SCH (21:55)
[2024-11-21] VITALS (99 sets, daily range): BP systolic 86–165; BP diastolic 18–78; PULSE 54–93; RESP 15–22; TEMP 96.1–98.8; O2SAT 97–100
[2024-11-21] MEDS: NOREPINEPHRINE 8 MG/250ML KIT 250 ML IV SCH
[2024-11-21 03:48] LABS: Basophils # (auto) 0.1 10 ^3/uL (0-0.2); Basophils % (auto) 0.9 % (0.0-2.0); Eosinophils # (auto) 0 10 ^3/uL (0-0.8); Eosinophils % (auto) 0.1 % (0.0-7.0); Hematocrit 33.3 % (41.0-53.0); Hemoglobin 11.1 g/dL (13.5-17.5); Lymphocytes # (auto) 0.4 10 ^3/uL (0.4-5.4); Lymphocytes % (auto) 4.2 % (10.0-50.0); Mean Corpuscular Hemoglobin 33.4 pg (28.0-32.0); Mean Corpuscular Hgb Conc. 33.4 g/dL (32.0-36.0); Monocytes # (auto) 0.6 10 ^3/uL (0-1.3); Neutrophils % (auto) 88.8 % (37.0-80.0); Platelet Count (auto) 142 10^3/uL (140-450); Red Blood Cells 3.33 10^6/uL (4.5-5.90); White Blood Cell 10.2 10^3/uL (4.4-10.8)
[2024-11-21 04:06] LABS: INR 1.08 (0.9-1.15); Partial Thromboplastin Time 44.6 SEC (24.5-34.5); Prothrombin Time 11.4 sec (9.3-11.8)
[2024-11-21 04:08] LABS: Albumin 3.5 g/dL (3.2-4.8); Alkaline Phosphatase 114 U/L (46-116); Anion Gap 19 (5-15); BUN/Creatinine Ratio 7.5 (10.0-20.0); Calcium 9.6 mg/dL (8.7-10.4); Carbon Dioxide 24 mmol/L (20-31); Chloride 98 mmol/L (98-107); Sodium 141 mmol/L (136-145); Total Protein 6.2 g/dL (5.7-8.2)
[2024-11-21 04:09] LABS: Bilirubin, Total 0.5 mg/dL (0.2-1.0)
[2024-11-21 04:47] LABS: Aspartate Aminotransferase 119 U/L (13-40); Glucose 134 mg/dL (74-106)
[2024-11-21 04:48] LABS: Alanine Aminotransferase 276 U/L (7-40); Blood Urea Nitrogen 83 mg/dL (9-23); Magnesium 2.7 mg/dL (1.6-2.6); Potassium 5.7 mmol/L (3.5-5.1)
--- NOTE | 2024-11-21 05:07 | DVH ---
Exam: US US GUIDED VASCULAR ACCESS Clinical History: PICC LINE PLACEMENT Comparison: None Findings: Targeted sonographic evaluation of the upper arm vein was obtained utilizing grayscale and color Dopp ler imaging. IMPRESSION: Sonographic assistance for central line placement. Please refer to procedural report for detailed fin dings.
--- NOTE | 2024-11-21 05:10 | DVH ---
EXAM: XR Chest, 1 View CLINICAL INDICATION: sob TECHNIQUE: Frontal view of the chest. COMPARISON: XY CHEST PORTABLE on DOS: 11/20/24, XY CHEST PORTABLE on DOS: 11/19/24 FINDINGS: LUNGS AND PLEURAL SPACES: See below. HEART: Cardiomegaly with mild congestion. MEDIASTINUM: Unremarkable. Normal mediastinal contour. BONES/JOINTS: Unremarkable. No acute fracture. TUBES, LINES AND DEVICES: The endotracheal tube (ETT) is in satisfactory position. Enteric tube ti p in the stomach. OTHER FINDINGS: . . . IMPRESSION: Cardiomegaly with mild congestion.
[2024-11-21] MEDS: SODIUM ZIRCONIUM CYCL 10 GM PAK PO ONE (06:01)
[2024-11-21] MEDS: SODIUM BICARB 8.4% 50Meq/50ml SYR INJ IV ONE (06:01)
[2024-11-21] MEDS: DEXTROSE (50%) 50ML SYRG IV ONE (06:04)
[2024-11-21] MEDS: InsuLIN REG 1unit/0.01ml Soln (100units/ml) IV ONE (06:08)
[2024-11-21] MEDS: HEPARIN DRIP/D5W 100UNITS/ML 250 ML IV SCH (06:12)
[2024-11-21] MEDS: ALBUTEROL SULF 2.5 MG/0.5ML(0.5%) NEB SOLN NEB ONE (06:29)
[2024-11-21 07:26] LABS: Base Excess -0.1 mmol/L (-2.0-3.0)
--- NOTE | 2024-11-21 07:57 | ECG ---
[facility] Test Date: 2024-11-20 Test Time: 05:49:58 Pat Name: NISREEN LEE Department: ICU Room: [address] [place] [address] A Gender: M Bindery Chief: JOSEFA : 1970 Requested By: SOLEDAD FRIEND Order Number: [id number] Reading MD: Kameron Monroe Measurements Intervals Witt Rate: 60 P: 2 [place]: 169 QRS: -112 QRSD: 153 T: 149 QT: 579 QTc: 579 Interpretive Statements Sinus rhythm RBBB and LAFB Electronically Signed On 11-21-2024 20:35:04 PDT by Kameron Monroe Please click the below link to view image of tracing.
[2024-11-21] MEDS: SODIUM CHL 0.9% 1000 ML BAG XX ONE (08:00)
[2024-11-21] MEDS: CALCIUM GLUC 1,000mg/50ml-NS 50 ML IV ONE (10:13)
--- NOTE | 2024-11-21 11:19 | DVH ---
Bilateral lower extremity venous duplex Clinical History: SWELLING OF LEFT LOWER EXTREMITY Comparison: None Technique: Duplex Doppler evaluation of the deep venous systems of both lower extremities from the co mmon femoral veins to the popliteal veins including color Doppler and spectral/pulsed waveform analys is was performed. Findings: RIGHT SIDE: The common femoral vein demonstrates appropriate compressibility and waveform variability . There is compressibility/patency of the great saphenous vein at the proximal thigh . The femoral vein demonstrates appropriate compressibility and waveform variability . The deep femoral vein demonstrates appropriate compressibility and waveform variability . The popliteal vein demonstrates appropriate compressibility and waveform variability . There is color flow at the tibioperoneal trunk and in the posterior tibial vein. Subcutaneous edema noted in the leg. LEFT SIDE: The common femoral vein demonstrates appropriate compressibility and waveform variability . There is compressibility/patency of the great saphenous vein at the proximal thigh . The femoral vein demonstrates appropriate compressibility and waveform variability . The deep femoral vein demonstrates appropriate compressibility and waveform variability . The popliteal vein demonstrates appropriate compressibility and waveform variability . There is color flow at the tibioperoneal trunk and in the posterior tibial vein. Subcutaneous edema in the calf. Impression: 1. No right or left femoropopliteal venous thrombosis.
[2024-11-21 11:45] LABS: INR 1.04 (0.9-1.15); Partial Thromboplastin Time 54.2 SEC (24.5-34.5)
[2024-11-21] MEDS: HEPARIN IN NS 1000Units/500mL 1,500 ML ONE (14:52)
[2024-11-21] MEDS: IODIXANOL 320MG/ML 100ML BTL IV ONE ×2 (14:52→16:15)
[2024-11-21] MEDS: LIDOCAINE 2%HCL (LOCAL ANESTH.) INJ 20ML MDV ONE (15:19)
[2024-11-21] MEDS: ANGIOMAX 250 MG VIAL IV ONE (15:19)
[2024-11-21] MEDS: HEPARIN SODIUM (PORCINE) 5000 UNITS/ML 1ML VIAL ONE ×2 (15:54→16:20)
--- NOTE | 2024-11-21 16:22 | DVHPN2 ---
Progress Note Date Seen: Nov 21, 2024 Medical Necessity Reason Pt with a Central, PICC or Fol: Yes The following are medically ne: Central Line, Ryan Catheter Subjective Patient reports: Feels worse Objective vital signs Vital Sign Date Time Temp Pulse Resp B/P (MAP) Pulse Ox O2 Delivery O2 Flow Rate FiO2 11/21/24 15:00 98.2 93 16 127/34 (65) 100 208.8 11/21/24 14:51 30 11/21/24 14:00 Mechanical Ventilator+ Total Intake and Output 11/20/24 11/20/24 11/21/24 15:00 23:00 07:00 Intake Total 276.097 ml 140.00 ml 243.50 ml Output Total 0 ml 0 ml Balance 276.097 ml 140.00 ml 243.50 ml medications Current Medications Medications Dose Ordered Sig/Gabby Route Start Time Stop Time Status Last Admin Dose Admin Propofol 100 ml @ 2.79 mls/hr Q24H IV 11/19/24 17:45 11/20/24 09:33 16.737 MLS/HR Midazolam HCl 50 ml @ 1 mls/hr Q24H IV 11/19/24 17:45 11/20/24 11:03 6 MLS/HR Fentanyl Citrate 250 ml @ 2.5 mls/hr Q24H IV 11/19/24 17:45 11/20/24 01:00 2.5 MLS/HR Norepinephrine Bitartrate 250 ml @ 3.75 mls/hr Q24H IV 11/19/24 19:45 11/20/24 09:30 3.75 MLS/HR Pantoprazole Sodium 40 mg DAILY IV 11/20/24 10:00 11/21/24 10:10 40 MG Amiodarone HCl 400 mg Q12HR PO 11/20/24 10:00 11/21/24 10:23 400 MG Aspirin 81 mg DAILY PO 11/20/24 10:00 11/21/24 10:19 81 MG Atorvastatin Calcium 40 mg HS PO 11/20/24 22:00 11/20/24 21:55 40 MG Diagnostic Test (Pha) 1 strip IQ4HR 11/20/24 04:00 11/21/24 11:51 1 STRIP Insulin Human Regular IQ4HR SC 11/20/24 04:00 Dextrose 50 ml UD PRN IV 11/20/24 02:15 Cefepime HCl 50 ml @ 12.5 mls/hr DAILY IV 11/20/24 14:00 11/21/24 10:11 12.5 MLS/HR Sodium Chloride 10 ml QSHIFT@10,22 IV 11/20/24 22:00 11/21/24 10:13 10 ML Heparin Sodium/ Dextrose 250 ml @ 8 mls/hr Q24H IV 11/21/24 05:15 11/21/24 06:12 8 MLS/HR Vasopressin 20 units/Sodium Chloride 100 ml @ 9 mls/hr Q11H7M IV 11/21/24 08:00 Dopamine HCl/ Dextrose 250 ml @ 7.284 mls/ hr Q24H IV 11/21/24 08:00 Enteral Nutritional Formula 1,000 ml 30ML/HR GT 11/21/24 09:00 Examination: GENERAL:Abnormal, CVS:Abnormal, ABDOMEN:Abnormal laboratory and microbiology Laboratory Tests 11/21/24 09:51 11/21/24 03:20 Test 11/21/24 03:20 Range/Units Serum Glucose 134 H 74-106 mg/dL Microbiology Date/Time Source Procedure Growth Status 11/20/24 02:10 Nose MRSA Screen - Final Complete 11/19/24 18:11 Blood Blood Culture - Preliminary NO GROWTH AFTER 24 HOURS OF INCUBATION. Resulted Problem List/Assessment/Plan Problem List/Assessment/Plan Admitted for cardiac arrest End-stage renal disease on hemodialysis Hyperkalemia Acute respiratory failure Extensive coronary history with cardiac arrest Pressor adjustment to maintain mean arterial pressure greater than 65 Avoid hypotension Cardiology consultation -> went for cath today HD today due to hyperkalemia Patient was critically ill with very poor prognosis given multiple cardiac events I have discussed this with family at bedside Critical care time spent 40 minutes Plan discussed with: Other My Orders My Orders Orders - REBECCA CATALAN MD Procedure Category Date Status Time Sodium Chl 0.9% PHA 11/21/24 In Process (So... W/Vasopressin 08:00 Dopamine 1600mcg/Ml PHA 11/21/24 In Process D5W 08:00 Hemodialysis Orders ORDERS 11/21/24 Transmitted 07:53 Dialysis Nursing JEN 11/21/24 In Process Message 07:53 Document Fluid Input JEN 11/21/24 In Process And Outpu 07:53 Dietary Evaluation Review Comments: Tube feeding peptide based Vital AF 1,2 @45ml/hr providing 1296+ 441(Propofol) and 81 g Protein. this regimen will support pt's 105% estmated protein needs and 90% estimated energy needs. Expected Outcomes/Goals: off vent and advanced to renal standard diet after passing a VENEER GLUE JOINTER FEEDBACK eval. REBECCA CATALAN MD Nov 21, 2024 16:22
--- NOTE | 2024-11-21 16:54 | DVHOP2 ---
Operative Report - 2 Report Details Date: 11/21/24 Preop Diagnosis: Coronary artery disease Postop Diagnosis: Severe coronary artery disease. Cardiomyopathy. Surgeon: Rajendra Monroe MD Anesthesiologist: Conscious sedation. Patient on a ventilator. Anesthesia: Mac, Local Implant: Don [place] drug-eluting stent Consent: The patient was informed of the risks and benefits of the procedure. These include but are not limited to complications of anesthesia, postoperative infection, incomplete relief of symptoms, recurrence of symptoms, damage to blood vessels, nerves and tendons, deep venous thrombosis, pulmonary embolism and possible need for repeat surgery in the future. Complications: No complications Estimated Blood Loss: 5 cc Findings: Significant CAD. Cardiomyopathy Indications for Surgery: Non ST-elevation IA. Name of Procedure Performed Left heart catheterization bilateral cine coronary angiography. Left ventriculography. Visualization of saphenous venous graft and left internal mammary artery. PTCA and stenting of the RCA. Procedure Details Procedure Details: Prior local anesthesia with 2% lidocaine to the right wrist. A six [place]an sheath was advanced into the right groin. Six [place] Filiberto catheters used to cannulate both right and left coronary ostia. A six [place] pigtail catheter was used for ventriculography. A right coronary catheter was used for saphenous grafts evaluation. A left internal mammary artery catheter was used for evaluation left internal mammary artery. An AL1 one was used for angioplasty of the RCA. Hemodynamics: Aortic blood pressure was 110/70. End-diastolic pressure was 20. There was no gradient across the aortic valve on pullback. Coronary anatomy: The RCA is a large vessel it is normal in its proximal mid section. The distal segment prior to the origin of the PDA has a 95% stenosis in his calcified and hazy. The PDA and posterolateral branches are large and normal. Left main is occluded proximally. Left internal mammary artery is anastomosed to the mid LAD. There was no retrograde flow to the proximal LAD. The distal flow is significant. The LAD itself is a smaller artery distally with good flow however. Diagonals are not noted. Retrograde flow into the proximal and mid LAD he is not present. The circumflex is occluded proximally. The saphenous graft to the obtuse marginal branch is patent. Retrograde filling of an inferior marginal noted from retrograde filling from the superior marginal. Ventriculography in the HARDWICK projection shows an EF of 30%. Anterior septal hypokinesis. Generalized hypokinesis the left ventricle. Angioplasty was performed for version AL1 guide was in place followed by a choice PT wire placed across the area of stenosis. We then placed a Sapphire balloon to formed channels since a two five balloon would not cross. We Finally placed a 2.5 x 12 mm balloon through the original lesion and were able to pre dilate. We placed a 3-0 by 15 mm stent into the distal RCA. There was subsequent excellent antegrade flow. No dissection or thrombus noted. Impression: Elevated left ventricular end-diastolic pressure at rest with decreased left ventricular ejection fraction. Three-vessel coronary artery disease as noted above. Significant stenosis of the distal RCA. Successful stenting of the distal RCA. Recommendations: Medical therapy is warranted. Continue with the risk factor modification. Condition Guarded Disposition Still a Patient Date of Service: Nov 21, 2024 Billing Provider: RAJENDRA MONROE Sr., MD Cardiology Common Codes: 41042-[id number] INP/OBS CARE (High) Cardiology Procedure Codes: 93867-UMW NONCORN ART BYPASS GTF, 36080-[id number] VESSEL W/I VASC FAM, 02434 -PTCA W/STENT PLACEMENT, 72003-GEVQ FOR STEMI W/STENT, 05578-NLME ADD COR ART/BRNCH/GRFT RAJENDRA MONROE Sr., MD Nov 21, 2024 16:54
[2024-11-21] MEDS: ASPirin 325 MG TAB ONE (17:01)
[2024-11-21] MEDS: CLOPIDOGREL BISULFATE 75 MG TAB ONE ×2 (17:01)
[2024-11-21] MEDS: DEXTROSE (50%) 50ML SYRG IV PRN (17:25)
--- NOTE | 2024-11-21 18:02 | DVHPNRES ---
Progress Note Date Seen: Nov 21, 2024 Resident Creating Document: SOLEDAD PONCE RESIDENT Medical Necessity Reason Pt with a Central, PICC or Fol: Yes The following are medically ne: Central Line, Ryan Catheter Subjective Review of Systems Patient seen and examined at bedside. Patient currently under mechanical ventilation assistance. On propofol and Versed, on vasopressor levophed. C today Objective vital signs Vital Sign Date Time Temp Pulse Resp B/P (MAP) Pulse Ox O2 Delivery O2 Flow Rate FiO2 11/21/24 17:35 135/46 11/21/24 15:00 98.2 93 16 100 208.8 11/21/24 14:51 30 11/21/24 14:00 Mechanical Ventilator+ Total Intake and Output 11/20/24 11/20/24 11/21/24 14:59 22:59 06:59 Intake Total 319.141 ml 139.25 ml 228.00 ml Output Total 0 ml 0 ml Balance 319.141 ml 139.25 ml 228.00 ml medications Current Medications Medications Dose Ordered Sig/Gabby Route Start Time Stop Time Status Last Admin Dose Admin Propofol 100 ml @ 2.79 mls/hr Q24H IV 11/19/24 17:45 11/20/24 09:33 16.737 MLS/HR Midazolam HCl 50 ml @ 1 mls/hr Q24H IV 11/19/24 17:45 11/20/24 11:03 6 MLS/HR Fentanyl Citrate 250 ml @ 2.5 mls/hr Q24H IV 11/19/24 17:45 11/21/24 17:35 15 MLS/HR Norepinephrine Bitartrate 250 ml @ 3.75 mls/hr Q24H IV 11/19/24 19:45 11/20/24 09:30 3.75 MLS/HR Pantoprazole Sodium 40 mg DAILY IV 11/20/24 10:00 11/21/24 10:10 40 MG Amiodarone HCl 400 mg Q12HR PO 11/20/24 10:00 11/21/24 10:23 400 MG Aspirin 81 mg DAILY PO 11/20/24 10:00 11/21/24 10:19 81 MG Atorvastatin Calcium 40 mg HS PO 11/20/24 22:00 11/20/24 21:55 40 MG Diagnostic Test (Pha) 1 strip IQ4HR 11/20/24 04:00 11/21/24 17:07 1 STRIP Insulin Human Regular IQ4HR SC 11/20/24 04:00 Dextrose 50 ml UD PRN IV 11/20/24 02:15 11/21/24 17:25 50 ML Cefepime HCl 50 ml @ 12.5 mls/hr DAILY IV 11/20/24 14:00 11/21/24 10:11 12.5 MLS/HR Sodium Chloride 10 ml QSHIFT@10,22 IV 11/20/24 22:00 11/21/24 10:13 10 ML Vasopressin 20 units/Sodium Chloride 100 ml @ 9 mls/hr Q11H7M IV 11/21/24 08:00 Dopamine HCl/ Dextrose 250 ml @ 7.284 mls/ hr Q24H IV 11/21/24 08:00 Enteral Nutritional Formula 1,000 ml 30ML/HR GT 11/21/24 09:00 Clopidogrel Bisulfate 75 mg DAILY PO 11/22/24 10:00 Albumin Human 100 ml @ 100 mls/hr Q1HR IV 11/21/24 18:00 11/21/24 19:59 Examination General: RASS -3, afebrile, mucosae are moist Cardiovascular: Normal S1 and S2. No murmurs, gallops or rubs Respiratory: Mechanically assisted ventilation, equal bilateral airway entree. Scattered crackles Abdomen: Soft, nontender, no organomegaly, normal bowel sounds. OG tube with brown fluid, on aspiration MSK/skin: Mobilization of limbs cannot be evaluated. Skin is dry and warm. Has right femoral central line with no signs of infection Neurological: Sedated laboratory and microbiology Laboratory Tests 11/21/24 09:51 11/21/24 03:20 Test 11/21/24 03:20 Range/Units Serum Glucose 134 H 74-106 mg/dL Microbiology Date/Time Source Procedure Growth Status 11/20/24 02:10 Nose MRSA Screen - Final Complete 11/19/24 18:11 Blood Blood Culture - Preliminary NO GROWTH AFTER 24 HOURS OF INCUBATION. Resulted Labs and/or images reviewed: Labs reviewed by me, Image(s) reviewed by me Problem List/Assessment/Plan Problem List/Assessment/Plan Neurology #Metabolic encephalopathy #Possible Anoxic brain injury Head CT unremarkable Sedation vacation performed, patient was awake, gag reflex present, palced back on sedation. Cardiovascular #Cardiac arrest status post ROSC x5 #Cardiogenic shock #Cardiac arrhythmia (V-Fib and pulseless V-Tach) - etiology electrolyte alteration vs ischemia #History of CAD status post CABG (2020) #PCIx8 #Chest pain, NSTEMI, rule out type 1 #Dyslipidemia #H/o hypertension #Acute on chronic systolic CHF Consulted cardiology, C today Continue amiodarone po Maintain map above 60, on Levophed Echo pending results Continue hemodialysis Pulmonology #Acute hypoxic respiratory failure on mechanical ventilation #Possible aspiration pneumonia, Gram-positive versus Gram-negative MV: FIO2 30%, PEEP 5, TV 500, RR 20 Cefepime IV Nephrology #End-stage renal disease on hemodialysis #Hyperkalemia, improving Nephrology following Endocrinology #Type 2 diabetes SSI mild Gastroenterology #Transaminitis, likely liver shock Monitor Feedings: Start Nepro Hematology and Oncology #Anemia, mild, microcytic, normochromic Monitor Infectious Disease #Possible aspiration pneumonia, Gram-positive versus Gram-negative #Septic shock due to above Continue cefepime IV continue levophed Dermatology x DVT ppx Heparin SC PUD ppx Protonix Drips Levophed Versed Prop Fent Lines R femoral TLC, 11/19/24, ordered picc line placed on 11/20/24 ET tube, 11/19/24 Critical care time spent outside of procedures: 61 mins Goals of care we discussed with spouse for over 30 minutes. FULL CODE. Patient is not stable for transferred to [place]. Case was discussed with Dr. Evangelista Plan discussed with: Spouse, Other (RN) My Orders My Orders Orders - SOLEDAD PONCE Procedure Category Date Status Time Bilat Lower Dvt US 11/21/24 Resulted 08:47 Nutritional PHA 11/21/24 In Process Supplements (Nepro 09:00 Dietary Evaluation Review Comments: Tube feeding peptide based Vital AF 1,2 @45ml/hr providing 1296+ 441(Propofol) and 81 g Protein. this regimen will support pt's 105% estmated protein needs and 90% estimated energy needs. Expected Outcomes/Goals: off vent and advanced to renal standard diet after passing a POLICE DISPATCHER eval. Date of Service: Nov 21, 2024 Billing Provider: WM EVANGELISTA MD Common Visit Codes: [id number] CARE 30-74 MIN SOLEDAD PONCE RESIDENT Nov 21, 2024 18:02 WM EVANGELISTA MD Nov 22, 2024 10:52
[2024-11-21 18:09] LABS: INR 1.09 (0.9-1.15); Prothrombin Time 11.5 sec (9.3-11.8)
[2024-11-21] MEDS: ALBUMIN 25% 100 ML IV SCH (18:13)
[2024-11-21 18:15] LABS: Partial Thromboplastin Time > 139.0 SEC (24.5-34.5)
[2024-11-21] MEDS: VASOPRESSIN 20 UNITS in SODIUM CHL 0.9% 99 ML IV SCH (19:00)
--- NOTE | 2024-11-21 20:22 | DVHSR ---
APPROVED REPORT EXAM: Two-dimensional and M-mode echocardiogram with Doppler and color Doppler. Blood Pressure: 79/44 mmHg INDICATION CPR RISK FACTORS Height: 5'7", Weight: 171 DIMENSIONS LVDd5.3 (3.8-5.7cm)LA (2D)4.4 (1.9-4.0cm)Aortic Root3.1 (2.0-3.7cm) LVDs4.3 (2.5-4.0cm)LA (MM) (1.9-4.0cm)Aortic Cusp Exc1.7 (1.5-2.0cm) EF (%) 40.0 (55-70%)Rt. Atrium4.4 (1.9-4.0cm)Asc. Aorta2.7 cm IVSd1.0 (0.7-1.1cm)RV (D)5.0 (1.8-2.4cm) PWd1.0 (0.7-1.1cm) Mitral Valve MitralMitral Stenosis E wave0.65m/sMV Mean GR.mmHg A wave0.65m/sMV Peak GR.mmHg E/A ratio1.02D MVAcm2 DECEL [id number] 1/2 Timems Aortic Valve Aortic ValveAortic Stenosis V10.79m/Jenae Mean GR.5mmHg V21.49m/Jenae Peak GR.9mmHg LVOT Diameter2.3 (1.8-2.4cm)Doppler AVA2.20cm2 Pulmonic Valve V20.96m/s Tricuspid Valve TR Velocity3.50m/s [id number] Conclusion Sinus rhythm. Concentric LVH with left atrial enlargement. RV enlargement. Dilation of the sinuses of Valsalva. Valves appear to be structurally normal. Mild mitral annular calcification. Mild sclerosis of the aortic valve. Left ventricular function is diminished. EF is approximately 35% with anterior apical hypokinesis. Underlying global hypokinesis. Interventricular septal doming consistent with pulmonary hypertension . No pericardial effusion masses or vegetations. Moderate aortic insufficiency with moderate tricuspid regurgitation with pulmonary hypertension. RVS P of 60 mmHg.
[2024-11-22] VITALS (105 sets, daily range): BP systolic 78–151; BP diastolic 3–86; PULSE 60–84; RESP 13–18; TEMP 97–99.9; O2SAT 99–100
[2024-11-22] MEDS: Nepro With Carb Steady 1 Liter Bottle GT SCH (01:15)
[2024-11-22 04:22] LABS: Basophils # (auto) 0 10 ^3/uL (0-0.2); Basophils % (auto) 0.7 % (0.0-2.0); Eosinophils # (auto) 0.1 10 ^3/uL (0-0.8); Lymphocytes # (auto) 0.4 10 ^3/uL (0.4-5.4); Monocytes # (auto) 0.7 10 ^3/uL (0-1.3); Monocytes % (auto) 9.7 % (0.0-12.0); Neutrophils # (auto) 5.7 10 ^3/uL (1.6-8.6); Nucleated Red Blood Cells % 0.1 %; White Blood Cell 6.9 10^3/uL (4.4-10.8)
[2024-11-22 04:27] LABS: Eosinophils % (auto) 1.6 % (0.0-7.0); Hematocrit 29.8 % (41.0-53.0); Hemoglobin 9.7 g/dL (13.5-17.5); Lymphocytes % (auto) 5.7 % (10.0-50.0); Mean Corpuscular Hemoglobin 33.1 pg (28.0-32.0); Mean Corpuscular Hgb Conc. 32.5 g/dL (32.0-36.0); Mean Corpuscular Volume 101.9 fL (80.0-100.0); Neutrophils % (auto) 82.3 % (37.0-80.0); Platelet Count (auto) 126 10^3/uL (140-450); Red Blood Cells 2.93 10^6/uL (4.5-5.90); Red Cell Distribution Width 16.4 % (11.8-14.3)
[2024-11-22] MEDS: LIDOCAINE 1% (LOCAL ANESTH.) PF 5ml SDV ID ONE (04:34)
[2024-11-22] MEDS: DOPamine 1600MCG/ML D5W 250 ML IV SCH (04:34)
[2024-11-22 04:36] LABS: Albumin 3.9 g/dL (3.2-4.8); Alkaline Phosphatase 87 U/L (46-116); Anion Gap 15 (5-15); BUN/Creatinine Ratio 5.7 (10.0-20.0); Bilirubin, Total 0.8 mg/dL (0.2-1.0); Carbon Dioxide 26 mmol/L (20-31); Glucose 92 mg/dL (74-106); Magnesium 2.3 mg/dL (1.6-2.6); Potassium 4.5 mmol/L (3.5-5.1); Sodium 139 mmol/L (136-145); Total Protein 6.3 g/dL (5.7-8.2)
[2024-11-22 05:03] LABS: Chloride 98 mmol/L (98-107)
[2024-11-22 05:04] LABS: Alanine Aminotransferase 158 U/L (7-40); Aspartate Aminotransferase 55 U/L (13-40); Blood Urea Nitrogen 42 mg/dL (9-23)
--- NOTE | 2024-11-22 06:06 | DVH ---
CHEST RADIOGRAPH Indication: sob Technique: Single frontal view of the chest was obtained Comparison: XY CHEST PORTABLE on DOS: 11/21/24 FINDINGS: Lines and Tubes: The endotracheal tube terminates 6.5 cm above the graciela. The enteric tube terminat es in the stomach. Left PICC terminates in the superior vena cava. Lungs: Mild pulmonary venous congestion. Pleura: No effusion. No pneumothorax. Cardiomediastinal contours: Cardiomegaly. Bones: No acute osseous abnormality. IMPRESSION: 1. Pulmonary venous congestion similar to prior study. 2. Cardiomegaly, stable.
[2024-11-22 07:37] LABS: Base Excess 4.3 mmol/L (-2.0-3.0)
--- NOTE | 2024-11-22 08:59 | ECG ---
[facility] Test Date: 2024-11-21 Test Time: 20:43:50 Pat Name: NISREEN LEE Department: icu Room: [address] [place] [address] A Gender: M Psychotherapist Counselor: sherif : 1970 Requested By: SOLEDAD FRIEND Order Number: [id number] Reading MD: Kameron Monroe Measurements Intervals [place] Rate: 63 P: 44 KS: 161 QRS: -87 QRSD: 163 T: -5 QT: 530 QTc: 543 Interpretive Statements Sinus rhythm Right bundle branch block Anteroseptal infarct, age indeterminate Electronically Signed On 11-23-2024 13:28:45 PDT by Kameron Monroe Please click the below link to view image of tracing.
--- NOTE | 2024-11-22 09:00 | ECG ---
[facility] Test Date: 2024-11-21 Test Time: 05:14:53 Pat Name: NISREEN LEE Department: icu Room: [address] [place] [address] A Gender: M Hospital Director: sherif : 1970 Requested By: PRICE MUÑIZ Order Number: [id number] Reading MD: Kameron Monroe Measurements Intervals [place] Rate: 70 P: 28 MA: 170 QRS: -100 QRSD: 151 T: 85 QT: 454 QTc: 490 Interpretive Statements Sinus rhythm RBBB and LAFB Abnrm T, consider ischemia, anterolateral lds Electronically Signed On 11-23-2024 13:28:16 PDT by Kameron Monroe Please click the below link to view image of tracing.
--- NOTE | 2024-11-22 09:48 | DVHPNRES ---
Progress Note Date Seen: Nov 22, 2024 Resident Creating Document: SOLEDAD PONCE RESIDENT Medical Necessity Reason Pt with a Central, PICC or Fol: Yes The following are medically ne: Central Line, Ryan Catheter Subjective Review of Systems Patient seen and examined at bedside. Patient currently under mechanical ventilation assistance. On propofol and Versed, off vasopressor levophed. start waning down sedation, hd tomorrow, cpap trial tomorrow Objective vital signs Vital Sign Date Time Temp Pulse Resp B/P (MAP) Pulse Ox O2 Delivery O2 Flow Rate FiO2 11/22/24 09:00 98.1 64 16 107/32 (57) 100 208.6 11/22/24 08:34 30 11/22/24 08:00 Mechanical Ventilator+ Total Intake and Output 11/21/24 11/21/24 11/22/24 14:59 22:59 06:59 Intake Total 250.75 ml 337.50 ml 191 ml Output Total 0 ml 0 ml Balance 250.75 ml 337.50 ml 191 ml medications Current Medications Medications Dose Ordered Sig/Gabby Route Start Time Stop Time Status Last Admin Dose Admin Propofol 100 ml @ 2.79 mls/hr Q24H IV 11/19/24 17:45 11/20/24 09:33 16.737 MLS/HR Midazolam HCl 50 ml @ 1 mls/hr Q24H IV 11/19/24 17:45 11/21/24 21:59 2 MLS/HR Fentanyl Citrate 250 ml @ 2.5 mls/hr Q24H IV 11/19/24 17:45 11/21/24 17:35 15 MLS/HR Pantoprazole Sodium 40 mg DAILY IV 11/20/24 10:00 11/21/24 10:10 40 MG Amiodarone HCl 400 mg Q12HR PO 11/20/24 10:00 11/21/24 21:58 400 MG Aspirin 81 mg DAILY PO 11/20/24 10:00 11/21/24 10:19 81 MG Atorvastatin Calcium 40 mg HS PO 11/20/24 22:00 11/21/24 21:58 40 MG Diagnostic Test (Pha) 1 strip IQ4HR 11/20/24 04:00 11/22/24 08:21 1 STRIP Insulin Human Regular IQ4HR SC 11/20/24 04:00 Dextrose 50 ml UD PRN IV 11/20/24 02:15 11/21/24 17:25 50 ML Cefepime HCl 50 ml @ 12.5 mls/hr DAILY IV 11/20/24 14:00 11/21/24 10:11 12.5 MLS/HR Sodium Chloride 10 ml QSHIFT@10,22 IV 11/20/24 22:00 11/21/24 22:01 10 ML Vasopressin 20 units/Sodium Chloride 100 ml @ 9 mls/hr Q11H7M IV 11/21/24 08:00 Dopamine HCl/ Dextrose 250 ml @ 7.284 mls/ hr Q24H IV 11/21/24 08:00 Enteral Nutritional Formula 1,000 ml 30ML/HR GT 11/21/24 09:00 11/22/24 01:15 1,000 ML Clopidogrel Bisulfate 75 mg DAILY PO 11/22/24 10:00 Norepinephrine Bitartrate 250 ml @ 1.875 mls/ hr Q24H IV 11/21/24 20:45 11/21/24 23:30 1.875 MLS/HR Examination General: RASS -3, afebrile, mucosae are moist Cardiovascular: Normal S1 and S2. No murmurs, gallops or rubs Respiratory: Mechanically assisted ventilation, equal bilateral airway entree. Scattered crackles Abdomen: Soft, nontender, no organomegaly, normal bowel sounds. OG tube with brown fluid, on aspiration MSK/skin: Mobilization of limbs cannot be evaluated. Skin is dry and warm. Has right femoral central line with no signs of infection Neurological: Sedated laboratory and microbiology Laboratory Tests 11/22/24 03:22 Test 11/22/24 03:22 Range/Units Serum Glucose 92 74-106 mg/dL Microbiology Date/Time Source Procedure Growth Status 11/20/24 02:10 Nose MRSA Screen - Final Complete 11/19/24 18:11 Blood Blood Culture - Preliminary NO GROWTH AFTER 48 HOURS OF INCUBATION. Resulted Labs and/or images reviewed: Labs reviewed by me, Image(s) reviewed by me Problem List/Assessment/Plan Problem List/Assessment/Plan Neurology #Metabolic encephalopathy #Possible Anoxic brain injury Head CT unremarkable Sedation vacation performed, patient was awake, gag reflex present, placed back on sedation. Cardiovascular #Cardiac arrest status post ROSC x5 #Cardiogenic shock #Cardiac arrhythmia (V-Fib and pulseless V-Tach) - etiology electrolyte alteration vs ischemia #History of CAD status post CABG (2020) #PCIx8 #Chest pain, NSTEMI, rule out type 1 #Dyslipidemia #H/o hypertension #Acute on chronic systolic CHF Consulted cardiology, LHC performed, s/p PCI x1 Continue aspiring and plavix Continue amiodarone po Maintain map above 60, off Levophed Continue hemodialysis Pulmonology #Acute hypoxic respiratory failure on mechanical ventilation #Possible aspiration pneumonia, Gram-positive versus Gram-negative MV: FIO2 30%, PEEP 5, TV 500, RR 20 Cefepime IV cpap trial tomorrow Nephrology #End-stage renal disease on hemodialysis #Hyperkalemia, improving Nephrology following Endocrinology #Type 2 diabetes SSI mild Gastroenterology #Transaminitis, likely liver shock Monitor Feedings: Start Nepro Hematology and Oncology #Anemia, mild, microcytic, normochromic Monitor Infectious Disease #Possible aspiration pneumonia, Gram-positive versus Gram-negative #Septic shock due to above Continue cefepime IV continue levophed Dermatology x DVT ppx Heparin SC PUD ppx Protonix Drips Levophed Versed Fent Lines R femoral TLC, 11/19/24, ordered picc line placed on 11/20/24 ET tube, 11/19/24 Critical care time spent outside of procedures: 81 mins Goals of care we discussed with spouse for over 30 minutes. FULL CODE. Patient is not stable for transferred to [place]. Case was discussed with Dr. Evangelista Plan discussed with: Spouse, Daughter, Other (RN) My Orders My Orders Orders - SOLEDAD PONCE RESIDENT Procedure Category Date Status Time Chest Portable XY 11/22/24 Resulted 04:00 Abg W/ Co-Ox RT 11/22/24 Logged 04:00 Hemoglobin & LAB 11/22/24 Logged Hematocrit 13:00 Dietary Evaluation Review Comments: Tube feeding peptide based Vital AF 1,2 @45ml/hr providing 1296+ 441(Propofol) and 81 g Protein. this regimen will support pt's 105% estmated protein needs and 90% estimated energy needs. Expected Outcomes/Goals: off vent and advanced to renal standard diet after passing a BRAIDING MACHINE TENDER eval. Date of Service: Nov 22, 2024 Billing Provider: WM EVANGELISTA MD Common Visit Codes: [id number] CARE 30-74 MIN, 57075-[id number] CARE-EACH +30MIN SOLEDAD PONCE RESIDENT Nov 22, 2024 09:48 WM EVANGELISTA MD Nov 24, 2024 21:23
[2024-11-22] MEDS: CLOPIDOGREL BISULFATE 75 MG TAB PO SCH (09:53)
--- NOTE | 2024-11-22 11:25 | ECG ---
[facility] Test Date: 2024-11-19 Test Time: 17:37:27 Pat Name: NISREEN LEE Department: ED Room: [address] [place] [address] A Gender: M Health Care Manager: LATONIA : 1970 Requested By: TOY PINEDA Order Number: [id number] Reading MD: Kameron Monroe Measurements Intervals [place] Rate: 113 P: 0 PA: 0 QRS: -86 QRSD: 166 T: 83 QT: 396 QTc: 543 Interpretive Statements Atrial fibrillation Ventricular tachycardia, unsustained RBBB and LAFB Abnrm T, consider ischemia, anterolateral lds Electronically Signed On 11-23-2024 13:39:31 PDT by Kameron Monroe Please click the below link to view image of tracing.
--- NOTE | 2024-11-22 12:15 | DVHPN2 ---
Consult Progress Note Subjective Other Systems: Patient remains chemically sedated and mechanically ventilated. Normal sinus rhythm on department assistant Objective vital signs Vital Sign Date Time Temp Pulse Resp B/P (MAP) Pulse Ox O2 Delivery O2 Flow Rate FiO2 11/22/24 11:45 97.7 61 16 93/31 (51) 99 207.9 11/22/24 10:36 30 11/22/24 10:00 Mechanical Ventilator+ Total Intake and Output 11/21/24 11/21/24 11/22/24 15:00 23:00 07:00 Intake Total 266.75 ml 313.25 ml 194 ml Output Total 0 ml 0 ml Balance 266.75 ml 313.25 ml 194 ml medications Current Medications Medications Dose Ordered Sig/Gabby Route Start Time Stop Time Status Last Admin Dose Admin Propofol 100 ml @ 2.79 mls/hr Q24H IV 11/19/24 17:45 11/20/24 09:33 16.737 MLS/HR Midazolam HCl 50 ml @ 1 mls/hr Q24H IV 11/19/24 17:45 11/21/24 21:59 2 MLS/HR Fentanyl Citrate 250 ml @ 2.5 mls/hr Q24H IV 11/19/24 17:45 11/21/24 17:35 15 MLS/HR Pantoprazole Sodium 40 mg DAILY IV 11/20/24 10:00 11/22/24 09:51 40 MG Amiodarone HCl 400 mg Q12HR PO 11/20/24 10:00 11/22/24 09:52 400 MG Aspirin 81 mg DAILY PO 11/20/24 10:00 11/22/24 09:54 81 MG Atorvastatin Calcium 40 mg HS PO 11/20/24 22:00 11/21/24 21:58 40 MG Diagnostic Test (Pha) 1 strip IQ4HR 11/20/24 04:00 11/22/24 11:16 1 STRIP Insulin Human Regular IQ4HR SC 11/20/24 04:00 Dextrose 50 ml UD PRN IV 11/20/24 02:15 11/21/24 17:25 50 ML Cefepime HCl 50 ml @ 12.5 mls/hr DAILY IV 11/20/24 14:00 11/22/24 09:54 12.5 MLS/HR Sodium Chloride 10 ml QSHIFT@,22 IV 11/20/24 22:00 11/22/24 09:55 10 ML Vasopressin 20 units/Sodium Chloride 100 ml @ 9 mls/hr Q11H7M IV 11/21/24 08:00 Dopamine HCl/ Dextrose 250 ml @ 7.284 mls/ hr Q24H IV 11/21/24 08:00 Enteral Nutritional Formula 1,000 ml 30ML/HR GT 11/21/24 09:00 11/22/24 01:15 1,000 ML Clopidogrel Bisulfate 75 mg DAILY PO 11/22/24 10:00 11/22/24 09:53 75 MG Norepinephrine Bitartrate 250 ml @ 1.875 mls/ hr Q24H IV 11/21/24 20:45 11/21/24 23:30 1.875 MLS/HR Examination: GENERAL:Abnormal, LUNGS:Abnormal (Mechanically ventilated), CVS:Normal, NEURO:Abnormal (Chemically sedated) laboratory and microbiology Laboratory Tests 11/22/24 03:22 Test 11/22/24 03:22 Range/Units Serum Glucose 92 74-106 mg/dL Problem List/Assessment/Plan Problem List/Assessment/Plan Non ST-elevation myocardial infarction s/p PTCA with stent to RCA Pulseless monomorphic ventricular tachycardia/ventricular fibrillation arrest with ROSC Acute on chronic decompensated HFrEF, newly diagnosed Severe coronary artery disease s/p PTCAs including 8 ZAK and single-vessel CABG (on ASA) Pulmonary hypertension Insulin-dependent diabetes mellitus Dyslipidemia ESRD on HD Acute on chronic anemia Transaminitis Plan/Recommendation (Dr. Monroe): Transthoracic echocardiogram reveals EF of 35%, RVSP 60 mmHg. The patient underwent a coronary angiogram with left heart catheterization with a successful stenting of the distal RCA. Today, the patient is off of vasopressor therapy. We will initiate guideline directed medical therapy for CHF with optimal blood pressures. In the meantime, continue with dual antiplatelet therapy, and lipid- lowering agent. Closely monitor patient's hemoglobin, hematocrit, and platelet level. Close cardiac surveillance. Thank you for allowing us to care for this patient. Please call with any questions or concerns. Critical care time: 45 min. This medical document was created using an electronic medical record system with voice recognition software and computerized dictation system. Although this document has been carefully reviewed, there might still be some phonetic and typographical errors. Occasional wrong-word or ``sound-alike substitutions may have occurred due to the inherent limitations of voice recognition software. These areas are purely typographical due to imperfections of the software programs and do not reflect any compromise in the patient's medical care. Please read the chart carefully and recognize, using context, where these substitutions have occurred. Plan discussed with: Daughter, Other (Bedside RN) Dietary Evaluation Review Comments: Tube feeding peptide based Vital AF 1,2 @45ml/hr providing 1296+ 441(Propofol) and 81 g Protein. this regimen will support pt's 105% estmated protein needs and 90% estimated energy needs. Expected Outcomes/Goals: off vent and advanced to renal standard diet after passing a WOODWORKING MACHINE FEEDER eval. Date of Service: Nov 22, 2024 Billing Provider: OCTAVIA SPENCE Common Visit Codes: [id number] CARE 30-74 MIN OCTAVIA SPENCE Nov 22, 2024 12:15
[2024-11-22 13:46] LABS: Hematocrit 29.3 % (41.0-53.0); Hemoglobin 9.4 g/dL (13.5-17.5)
--- NOTE | 2024-11-22 15:12 | DVHPN2 ---
Progress Note Date Seen: Nov 22, 2024 Medical Necessity Reason Pt with a Central, PICC or Fol: No The following are medically ne: Central Line Subjective Review of Systems: RESPIRATORY:Abnormal Objective vital signs Vital Sign Date Time Temp Pulse Resp B/P (MAP) Pulse Ox O2 Delivery O2 Flow Rate FiO2 11/22/24 15:00 98.1 62 16 99/26 (50) 99 208.6 11/22/24 14:21 30 11/22/24 14:00 Mechanical Ventilator+ Total Intake and Output 11/21/24 11/21/24 11/22/24 15:00 23:00 07:00 Intake Total 266.75 ml 313.25 ml 194 ml Output Total 0 ml 0 ml Balance 266.75 ml 313.25 ml 194 ml medications Current Medications Medications Dose Ordered Sig/Gabby Route Start Time Stop Time Status Last Admin Dose Admin Propofol 100 ml @ 2.79 mls/hr Q24H IV 11/19/24 17:45 11/20/24 09:33 16.737 MLS/HR Midazolam HCl 50 ml @ 1 mls/hr Q24H IV 11/19/24 17:45 11/22/24 14:44 4 MLS/HR Fentanyl Citrate 250 ml @ 2.5 mls/hr Q24H IV 11/19/24 17:45 11/22/24 13:08 15 MLS/HR Pantoprazole Sodium 40 mg DAILY IV 11/20/24 10:00 11/22/24 09:51 40 MG Amiodarone HCl 400 mg Q12HR PO 11/20/24 10:00 11/22/24 09:52 400 MG Aspirin 81 mg DAILY PO 11/20/24 10:00 11/22/24 09:54 81 MG Atorvastatin Calcium 40 mg HS PO 11/20/24 22:00 11/21/24 21:58 40 MG Diagnostic Test (Pha) 1 strip IQ4HR 11/20/24 04:00 11/22/24 11:16 1 STRIP Insulin Human Regular IQ4HR SC 11/20/24 04:00 Dextrose 50 ml UD PRN IV 11/20/24 02:15 11/21/24 17:25 50 ML Cefepime HCl 50 ml @ 12.5 mls/hr DAILY IV 11/20/24 14:00 11/22/24 09:54 12.5 MLS/HR Sodium Chloride 10 ml QSHIFT@10,22 IV 11/20/24 22:00 11/22/24 09:55 10 ML Vasopressin 20 units/Sodium Chloride 100 ml @ 9 mls/hr Q11H7M IV 11/21/24 08:00 Dopamine HCl/ Dextrose 250 ml @ 7.284 mls/ hr Q24H IV 11/21/24 08:00 Enteral Nutritional Formula 1,000 ml 30ML/HR GT 11/21/24 09:00 11/22/24 01:15 1,000 ML Clopidogrel Bisulfate 75 mg DAILY PO 11/22/24 10:00 11/22/24 09:53 75 MG Norepinephrine Bitartrate 250 ml @ 1.875 mls/ hr Q24H IV 11/21/24 20:45 11/21/24 23:30 1.875 MLS/HR Examination: GENERAL:Abnormal, LUNGS:Abnormal, CVS:Abnormal laboratory and microbiology Laboratory Tests 11/22/24 13:33 11/22/24 03:22 Test 11/22/24 03:22 Range/Units Serum Glucose 92 74-106 mg/dL Microbiology Date/Time Source Procedure Growth Status 11/20/24 02:10 Nose MRSA Screen - Final Complete 11/19/24 18:11 Blood Blood Culture - Preliminary NO GROWTH AFTER 48 HOURS OF INCUBATION. Resulted Problem List/Assessment/Plan Problem List/Assessment/Plan Admitted for cardiac arrest End-stage renal disease on hemodialysis Hyperkalemia Acute respiratory failure Extensive coronary history with new cardiac arrest CAD NSTEMI s/p cath RCA stent, EF 35% anemia Pressor adjustment to maintain mean arterial pressure greater than 65 Avoid hypotension Cardiology consultation -> s/p PCI RCA HD tomorrow, start Epogen, iron panel Patient was critically ill with very poor prognosis given multiple cardiac events I have discussed this with family at bedside Critical care time spent 40 minutes Plan discussed with: Other My Orders My Orders Orders - REBECCA CATALAN MD Procedure Category Date Status Time Hepatitis B Surface LAB 11/21/24 In Process Antigen 16:50 Dietary Evaluation Review Comments: Tube feeding peptide based Vital AF 1,2 @45ml/hr providing 1296+ 441(Propofol) and 81 g Protein. this regimen will support pt's 105% estmated protein needs and 90% estimated energy needs. Expected Outcomes/Goals: off vent and advanced to renal standard diet after passing a GRADER GREEN MEAT eval. REBECCA CATALAN MD Nov 22, 2024 15:12
[2024-11-23] VITALS (104 sets, daily range): BP systolic 82–180; BP diastolic 17–78; PULSE 61–100; RESP 11–24; TEMP 95.2–99.3; O2SAT 96–100
[2024-11-23 04:00] LABS: Basophils # (auto) 0 10 ^3/uL (0-0.2); Basophils % (auto) 0.7 % (0.0-2.0); Eosinophils # (auto) 0.2 10 ^3/uL (0-0.8); Eosinophils % (auto) 2.9 % (0.0-7.0); Hematocrit 30.5 % (41.0-53.0); Hemoglobin 10.1 g/dL (13.5-17.5); Lymphocytes # (auto) 0.5 10 ^3/uL (0.4-5.4); Lymphocytes % (auto) 8.5 % (10.0-50.0); Mean Corpuscular Hemoglobin 32.9 pg (28.0-32.0); Mean Corpuscular Hgb Conc. 33.2 g/dL (32.0-36.0); Monocytes # (auto) 0.8 10 ^3/uL (0-1.3); Monocytes % (auto) 12.7 % (0.0-12.0); Neutrophils # (auto) 4.8 10 ^3/uL (1.6-8.6); Neutrophils % (auto) 75.2 % (37.0-80.0); Platelet Count (auto) 125 10^3/uL (140-450); Red Blood Cells 3.08 10^6/uL (4.5-5.90); Red Cell Distribution Width 15.7 % (11.8-14.3); White Blood Cell 6.4 10^3/uL (4.4-10.8)
[2024-11-23 04:24] LABS: Albumin 3.7 g/dL (3.2-4.8); Alkaline Phosphatase 95 U/L (46-116); Anion Gap 15 (5-15); Aspartate Aminotransferase 37 U/L (13-40); BUN/Creatinine Ratio 6.4 (10.0-20.0); Bilirubin, Total 0.6 mg/dL (0.2-1.0); Calcium 10.3 mg/dL (8.7-10.4); Carbon Dioxide 26 mmol/L (20-31); Magnesium 2.5 mg/dL (1.6-2.6); Potassium 4.3 mmol/L (3.5-5.1); Sodium 138 mmol/L (136-145); Total Protein 6.2 g/dL (5.7-8.2)
[2024-11-23 04:34] LABS: Alanine Aminotransferase 120 U/L (7-40); Blood Urea Nitrogen 60 mg/dL (9-23); Chloride 97 mmol/L (98-107); Glucose 115 mg/dL (74-106)
--- NOTE | 2024-11-23 06:15 | DVH ---
EXAM: XR Chest, 1 View CLINICAL INDICATION: sob TECHNIQUE: Frontal view of the chest. COMPARISON: XY CHEST PORTABLE on DOS: 11/22/24, XY CHEST PORTABLE on DOS: 11/21/24, XY CHEST PORTABLE on DOS: 11/20/24, XY CHEST PORTABLE on DOS: 11/19/24 FINDINGS: LUNGS AND PLEURAL SPACES: Pulmonary venous congestion. No consolidation. No pneumothorax. HEART: Unremarkable. No cardiomegaly. MEDIASTINUM: Unremarkable. Normal mediastinal contour. BONES/JOINTS: Unremarkable. No acute fracture. TUBES, LINES AND DEVICES: The endotracheal tube (ETT) is in satisfactory position. Left peripheral ly inserted central catheter (PICC) tip in the superior vena cava. Enteric tube tip in the stomach. OTHER FINDINGS: . . . IMPRESSION: Pulmonary venous congestion.
[2024-11-23] MEDS: SODIUM CHL 0.9% 1000 ML BAG XX ONE (07:00)
[2024-11-23 07:51] LABS: Base Excess 0.7 mmol/L (-2.0-3.0)
--- NOTE | 2024-11-23 10:32 | DVHPN2 ---
Consult Progress Note Subjective Other Systems: Patient in normal sinus rhythm on cardiac exercise physiologist. The patient is back on vasopressor therapy for BP support Patient off of sedations at this time, pending CPAP trial Objective vital signs Vital Sign Date Time Temp Pulse Resp B/P (MAP) Pulse Ox O2 Delivery O2 Flow Rate FiO2 11/23/24 09:45 78 11/23/24 09:45 16 99 Mechanical Ventilator+ 30 30 11/23/24 09:45 151/51 11/23/24 06:45 98.8 209.8 Total Intake and Output 11/22/24 11/22/24 11/23/24 15:00 23:00 07:00 Intake Total 214.5 ml 340.500 ml 245.500 ml Output Total 0 ml 0 ml Balance 214.5 ml 340.500 ml 245.500 ml medications Current Medications Medications Dose Ordered Sig/Gabby Route Start Time Stop Time Status Last Admin Dose Admin Propofol 100 ml @ 2.79 mls/hr Q24H IV 11/19/24 17:45 11/20/24 09:33 16.737 MLS/HR Midazolam HCl 50 ml @ 1 mls/hr Q24H IV 11/19/24 17:45 11/23/24 00:18 4 MLS/HR Fentanyl Citrate 250 ml @ 2.5 mls/hr Q24H IV 11/19/24 17:45 11/23/24 00:24 15 MLS/HR Pantoprazole Sodium 40 mg DAILY IV 11/20/24 10:00 11/23/24 09:53 40 MG Amiodarone HCl 400 mg Q12HR PO 11/20/24 10:00 11/23/24 09:53 400 MG Aspirin 81 mg DAILY PO 11/20/24 10:00 11/23/24 09:53 81 MG Atorvastatin Calcium 40 mg HS PO 11/20/24 22:00 11/22/24 21:56 40 MG Diagnostic Test (Pha) 1 strip IQ4HR 11/20/24 04:00 11/23/24 08:00 1 STRIP Insulin Human Regular IQ4HR SC 11/20/24 04:00 11/22/24 20:19 2 UNITS Dextrose 50 ml UD PRN IV 11/20/24 02:15 11/21/24 17:25 50 ML Cefepime HCl 50 ml @ 12.5 mls/hr DAILY IV 11/20/24 14:00 11/23/24 09:54 12.5 MLS/HR Sodium Chloride 10 ml QSHIFT@10,22 IV 11/20/24 22:00 11/23/24 10:10 10 ML Vasopressin 20 units/Sodium Chloride 100 ml @ 9 mls/hr Q11H7M IV 11/21/24 08:00 Dopamine HCl/ Dextrose 250 ml @ 7.284 mls/ hr Q24H IV 11/21/24 08:00 Enteral Nutritional Formula 1,000 ml 30ML/HR GT 11/21/24 09:00 11/22/24 01:15 1,000 ML Clopidogrel Bisulfate 75 mg DAILY PO 11/22/24 10:00 11/23/24 09:53 75 MG Norepinephrine Bitartrate 250 ml @ 1.875 mls/ hr Q24H IV 11/21/24 20:45 11/23/24 00:17 1.875 MLS/HR Epoetin Anthony-epbx 4,000 unit MWF@2100 SC 11/23/24 21:00 Examination: GENERAL:Abnormal, LUNGS:Abnormal (Mechanically ventilated), CVS:Normal, NEURO:Normal (Off sedations, following commands) laboratory and microbiology Laboratory Tests 11/23/24 03:00 Test 11/23/24 03:00 Range/Units Serum Glucose 115 H 74-106 mg/dL Problem List/Assessment/Plan Problem List/Assessment/Plan Non ST-elevation myocardial infarction s/p PTCA with stent to RCA Pulseless monomorphic ventricular tachycardia/ventricular fibrillation arrest with ROSC Acute on chronic decompensated HFrEF, newly diagnosed Severe coronary artery disease s/p PTCAs including 8 ZAK and single-vessel CABG (on ASA) Pulmonary hypertension Insulin-dependent diabetes mellitus Dyslipidemia ESRD on HD Acute on chronic anemia Transaminitis Plan/Recommendation (Dr. Monroe): Transthoracic echocardiogram reveals EF of 35%, RVSP 60 mmHg. The patient underwent a coronary angiogram with left heart catheterization with a successful stenting of the distal RCA. Today, the patient was back on vasopressor therapy for blood pressure support. We will initiate guideline directed medical therapy for CHF once off of vasopressors and with optimal blood pressure. In the meantime, continue with dual antiplatelet therapy, and lipid-lowering agent. Closely monitor patient's hemoglobin, hematocrit, and platelet level. Close cardiac surveillance. Thank you for allowing us to care for this patient. Please call with any questions or concerns. Critical care time: 45 min. This medical document was created using an electronic medical record system with voice recognition software and computerized dictation system. Although this document has been carefully reviewed, there might still be some phonetic and typographical errors. Occasional wrong-word or ``sound-alike substitutions may have occurred due to the inherent limitations of voice recognition software. These areas are purely typographical due to imperfections of the software programs and do not reflect any compromise in the patient's medical care. Please read the chart carefully and recognize, using context, where these substitutions have occurred. Plan discussed with: Other (Bedside RN) Dietary Evaluation Review Comments: Tube feeding peptide based Vital AF 1,2 @45ml/hr providing 1296+ 441(Propofol) and 81 g Protein. this regimen will support pt's 105% estmated protein needs and 90% estimated energy needs. Expected Outcomes/Goals: off vent and advanced to renal standard diet after passing a CAR RENTAL DELIVERER eval. Date of Service: Nov 23, 2024 Billing Provider: OCTAVIA SPENCE Common Visit Codes: [id number] CARE 30-74 MIN OCTAVIA SPENCE Nov 23, 2024 10:32
--- NOTE | 2024-11-23 10:53 | DVHPNRES ---
Progress Note Date Seen: Nov 23, 2024 Resident Creating Document: SOLEDAD PONCE RESIDENT Medical Necessity Reason Pt with a Central, PICC or Fol: No The following are medically ne: Central Line Subjective Review of Systems Patient seen and examined at bedside. Patient currently under mechanical ventilation assistance. On propofol and Versed, off vasopressor levophed. start waning down sedation, hd today cpap trial today Objective vital signs Vital Sign Date Time Temp Pulse Resp B/P (MAP) Pulse Ox O2 Delivery O2 Flow Rate FiO2 11/23/24 10:24 69 16 157/58 (91) 99 30 11/23/24 09:45 Mechanical Ventilator+ 11/23/24 06:45 98.8 209.8 Total Intake and Output 11/22/24 11/22/24 11/23/24 15:00 23:00 07:00 Intake Total 214.5 ml 340.500 ml 245.500 ml Output Total 0 ml 0 ml Balance 214.5 ml 340.500 ml 245.500 ml medications Current Medications Medications Dose Ordered Sig/Gabby Route Start Time Stop Time Status Last Admin Dose Admin Propofol 100 ml @ 2.79 mls/hr Q24H IV 11/19/24 17:45 11/20/24 09:33 16.737 MLS/HR Midazolam HCl 50 ml @ 1 mls/hr Q24H IV 11/19/24 17:45 11/23/24 00:18 4 MLS/HR Fentanyl Citrate 250 ml @ 2.5 mls/hr Q24H IV 11/19/24 17:45 11/23/24 00:24 15 MLS/HR Pantoprazole Sodium 40 mg DAILY IV 11/20/24 10:00 11/23/24 09:53 40 MG Amiodarone HCl 400 mg Q12HR PO 11/20/24 10:00 11/23/24 09:53 400 MG Aspirin 81 mg DAILY PO 11/20/24 10:00 11/23/24 09:53 81 MG Atorvastatin Calcium 40 mg HS PO 11/20/24 22:00 11/22/24 21:56 40 MG Diagnostic Test (Pha) 1 strip IQ4HR 11/20/24 04:00 11/23/24 08:00 1 STRIP Insulin Human Regular IQ4HR SC 11/20/24 04:00 11/22/24 20:19 2 UNITS Dextrose 50 ml UD PRN IV 11/20/24 02:15 11/21/24 17:25 50 ML Cefepime HCl 50 ml @ 12.5 mls/hr DAILY IV 11/20/24 14:00 11/23/24 09:54 12.5 MLS/HR Sodium Chloride 10 ml QSHIFT@10,22 IV 11/20/24 22:00 11/23/24 10:10 10 ML Vasopressin 20 units/Sodium Chloride 100 ml @ 9 mls/hr Q11H7M IV 11/21/24 08:00 Dopamine HCl/ Dextrose 250 ml @ 7.284 mls/ hr Q24H IV 11/21/24 08:00 Enteral Nutritional Formula 1,000 ml 30ML/HR GT 11/21/24 09:00 11/22/24 01:15 1,000 ML Clopidogrel Bisulfate 75 mg DAILY PO 11/22/24 10:00 11/23/24 09:53 75 MG Norepinephrine Bitartrate 250 ml @ 1.875 mls/ hr Q24H IV 11/21/24 20:45 11/23/24 00:17 1.875 MLS/HR Epoetin Anthony-epbx 4,000 unit MWF@2100 SC 11/23/24 21:00 Examination General: RASS -3, afebrile, mucosae are moist Cardiovascular: Normal S1 and S2. No murmurs, gallops or rubs Respiratory: Mechanically assisted ventilation, equal bilateral airway entree. Scattered crackles Abdomen: Soft, nontender, no organomegaly, normal bowel sounds. OG tube with brown fluid, on aspiration MSK/skin: Mobilization of limbs cannot be evaluated. Skin is dry and warm. Has right femoral central line with no signs of infection Neurological: Sedated laboratory and microbiology Laboratory Tests 11/23/24 03:00 Test 11/23/24 03:00 Range/Units Serum Glucose 115 H 74-106 mg/dL Microbiology Date/Time Source Procedure Growth Status 11/20/24 02:10 Nose MRSA Screen - Final Complete 11/19/24 18:11 Blood Blood Culture - Preliminary NO GROWTH AFTER 72 HOURS OF INCUBATION. Resulted Labs and/or images reviewed: Labs reviewed by me, Image(s) reviewed by me Problem List/Assessment/Plan Problem List/Assessment/Plan Neurology #Metabolic encephalopathy #Possible Anoxic brain injury Head CT unremarkable Sedation vacation performed, patient was awake, gag reflex present, placed back on sedation. Cardiovascular #Cardiac arrest status post ROSC x5 #Cardiogenic shock #Cardiac arrhythmia (V-Fib and pulseless V-Tach) - etiology electrolyte alteration vs ischemia #History of CAD status post CABG (2020) #PCIx8 #Chest pain, NSTEMI, rule out type 1 #Dyslipidemia #H/o hypertension #Acute on chronic systolic CHF Consulted cardiology, LHC performed, s/p PCI x1 Continue aspirin and plavix Continue amiodarone po Maintain map above 60, off Levophed Continue hemodialysis Pulmonology #Acute hypoxic respiratory failure on mechanical ventilation #Possible aspiration pneumonia, Gram-positive versus Gram-negative MV: FIO2 30%, PEEP 5, TV 500, RR 20 Cefepime IV cpap trial today failed, repeat tomorrow Nephrology #End-stage renal disease on hemodialysis #Hyperkalemia, improving Nephrology following Endocrinology #Type 2 diabetes SSI mild Gastroenterology #Transaminitis, likely liver shock Monitor Feedings: Start Nepro Hematology and Oncology #Anemia, mild, microcytic, normochromic Monitor Infectious Disease #Possible aspiration pneumonia, Gram-positive versus Gram-negative #Septic shock due to above Continue cefepime IV continue levophed Dermatology x DVT ppx Heparin SC PUD ppx Protonix Drips Levophed Versed Fent Lines picc line placed on 11/20/24 ET tube, 11/19/24 Critical care time spent outside of procedures: 45 mins Goals of care we discussed with spouse for over 30 minutes. FULL CODE. Patient is not stable for transferred to [place]. Case was discussed with Dr. Villegas Plan discussed with: Spouse, Other (RN) My Orders My Orders Orders - SOLEDAD PONCE RESIDENT Procedure Category Date Status Time Respiratory Misc. RT 11/22/24 Transmitted Order 13:02 Chest Portable XY 11/23/24 Resulted 04:00 Abg W/ Co-Ox RT 11/23/24 Logged 04:00 Dietary Evaluation Review Comments: Tube feeding peptide based Vital AF 1,2 @45ml/hr providing 1296+ 441(Propofol) and 81 g Protein. this regimen will support pt's 105% estmated protein needs and 90% estimated energy needs. Expected Outcomes/Goals: off vent and advanced to renal standard diet after passing a CONTRACT PROJECT MANAGER eval. SOLEDAD PONCE RESIDENT Nov 23, 2024 10:53
--- NOTE | 2024-11-23 15:44 | DVHPN2 ---
Progress Note - Dictate Date Seen: Nov 23, 2024 Medical Necessity Reason Pt with a Central, PICC or Fol: No The following are medically ne: Central Line Subjective patient seen after dialysis earlier this afternoon. vital signs Vital Sign Date Time Temp Pulse Resp B/P (MAP) Pulse Ox O2 Delivery O2 Flow Rate FiO2 11/23/24 14:15 99.3 91 20 118/57 (77) 100 210.7 11/23/24 14:11 30 11/23/24 12:00 Mechanical Ventilator+ Total Intake and Output 11/22/24 11/22/24 11/23/24 15:00 23:00 07:00 Intake Total 214.5 ml 340.500 ml 245.500 ml Output Total 0 ml 0 ml Balance 214.5 ml 340.500 ml 245.500 ml medications Current Medications Medications Dose Ordered Sig/Gabby Route Start Time Stop Time Status Last Admin Dose Admin Propofol 100 ml @ 2.79 mls/hr Q24H IV 11/19/24 17:45 11/20/24 09:33 16.737 MLS/HR Midazolam HCl 50 ml @ 1 mls/hr Q24H IV 11/19/24 17:45 11/23/24 00:18 4 MLS/HR Fentanyl Citrate 250 ml @ 2.5 mls/hr Q24H IV 11/19/24 17:45 11/23/24 00:24 15 MLS/HR Pantoprazole Sodium 40 mg DAILY IV 11/20/24 10:00 11/23/24 09:53 40 MG Amiodarone HCl 400 mg Q12HR PO 11/20/24 10:00 11/23/24 09:53 400 MG Aspirin 81 mg DAILY PO 11/20/24 10:00 11/23/24 09:53 81 MG Atorvastatin Calcium 40 mg HS PO 11/20/24 22:00 11/22/24 21:56 40 MG Diagnostic Test (Pha) 1 strip IQ4HR 11/20/24 04:00 11/23/24 12:17 1 STRIP Insulin Human Regular IQ4HR SC 11/20/24 04:00 11/22/24 20:19 2 UNITS Dextrose 50 ml UD PRN IV 11/20/24 02:15 11/21/24 17:25 50 ML Cefepime HCl 50 ml @ 12.5 mls/hr DAILY IV 11/20/24 14:00 11/23/24 09:54 12.5 MLS/HR Sodium Chloride 10 ml QSHIFT@10,22 IV 11/20/24 22:00 11/23/24 10:10 10 ML Vasopressin 20 units/Sodium Chloride 100 ml @ 9 mls/hr Q11H7M IV 11/21/24 08:00 Dopamine HCl/ Dextrose 250 ml @ 7.284 mls/ hr Q24H IV 11/21/24 08:00 Enteral Nutritional Formula 1,000 ml 30ML/HR GT 11/21/24 09:00 11/22/24 01:15 1,000 ML Clopidogrel Bisulfate 75 mg DAILY PO 11/22/24 10:00 11/23/24 09:53 75 MG Norepinephrine Bitartrate 250 ml @ 1.875 mls/ hr Q24H IV 11/21/24 20:45 11/23/24 00:17 1.875 MLS/HR Epoetin Anthony-epbx 4,000 unit MWF@2100 SC 11/23/24 21:00 Ondansetron HCl 4 mg Q4HPRN PRN IV 11/23/24 12:30 objective gen: nad, intubated lungs: occ ronchi cvs: no rub ext: no edema, R UE aVF patent laboratory and microbiology Laboratory Tests 11/23/24 03:00 Test 11/23/24 03:00 Range/Units Serum Glucose 115 H 74-106 mg/dL Assessment/Plan Admitted for cardiac arrest End-stage renal disease on hemodialysis Hyperkalemia Acute respiratory failure Extensive coronary history with new cardiac arrest CAD NSTEMI s/p cath RCA stent, EF 35% anemia - Will continue to evaluate daily for diaysis needs - overall poor prognosis - will follow closely along with you Dietary Evaluation Review Comments: Tube feeding peptide based Vital AF 1,2 @45ml/hr providing 1296+ 441(Propofol) and 81 g Protein. this regimen will support pt's 105% estmated protein needs and 90% estimated energy needs. Expected Outcomes/Goals: off vent and advanced to renal standard diet after passing a MONUMENT INSTALLER eval. Plan discussed with: CRISTIAN Velasquez MD Nov 23, 2024 15:44
--- NOTE | 2024-11-23 16:25 | DVH ---
EXAM: XR Chest, 1 View CLINICAL INDICATION: VERIFY ET TUBE PLACEMENT AND OGT PLACEMENT TECHNIQUE: Frontal view of the chest. COMPARISON: XY CHEST PORTABLE on DOS: 11/23/24, XY CHEST PORTABLE on DOS: 11/22/24, XY CHEST PORTABLE on DOS: 11/21/24, XY CHEST PORTABLE on DOS: 11/20/24, XY CHEST PORTABLE on DOS: 11/19/24 FINDINGS: LUNGS AND PLEURAL SPACES: Pulmonary venous congestion. No consolidation. No pneumothorax. HEART: Unremarkable. No cardiomegaly. MEDIASTINUM: Unremarkable. Normal mediastinal contour. BONES/JOINTS: Unremarkable. No acute fracture. TUBES, LINES AND DEVICES: The endotracheal tube (ETT) is in satisfactory position. Enteric tube ti p in the stomach. OTHER FINDINGS: . . . IMPRESSION: Pulmonary venous congestion.
[2024-11-23] MEDS: EPOETIN ALFA-EPBX 4,000 UNIT/ML VIAL SC SCH (21:00)
--- NOTE | 2024-11-23 23:50 | DVHPN2 ---
Consult Progress Note Subjective Other Systems: Patient was seen and evaluated in follow-up in the ICU. Patient is intubated on ventilator. 30% FiO2. 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 The patient is back on vasopressor therapy for BP support. Patient off of sedations at this time, pending CPAP trial. Chest x-ray shows pulmonary venous congestion. Objective vital signs Vital Sign Date Time Temp Pulse Resp B/P (MAP) Pulse Ox O2 Delivery O2 Flow Rate FiO2 11/23/24 20:15 77 17 174/58 (96) 100 30 11/23/24 20:00 Mechanical Ventilator+ 11/23/24 18:45 99.0 210.2 Total Intake and Output 11/22/24 11/22/24 11/23/24 15:00 23:00 07:00 Intake Total 214.5 ml 340.500 ml 245.500 ml Output Total 0 ml 0 ml Balance 214.5 ml 340.500 ml 245.500 ml medications Current Medications Medications Dose Ordered Sig/Gabby Route Start Time Stop Time Status Last Admin Dose Admin Propofol 100 ml @ 2.79 mls/hr Q24H IV 11/19/24 17:45 11/20/24 09:33 16.737 MLS/HR Midazolam HCl 50 ml @ 1 mls/hr Q24H IV 11/19/24 17:45 11/23/24 19:24 2 MLS/HR Fentanyl Citrate 250 ml @ 2.5 mls/hr Q24H IV 11/19/24 17:45 11/23/24 00:24 15 MLS/HR Pantoprazole Sodium 40 mg DAILY IV 11/20/24 10:00 11/23/24 09:53 40 MG Amiodarone HCl 400 mg Q12HR PO 11/20/24 10:00 11/23/24 21:53 400 MG Aspirin 81 mg DAILY PO 11/20/24 10:00 11/23/24 09:53 81 MG Atorvastatin Calcium 40 mg HS PO 11/20/24 22:00 11/23/24 21:53 40 MG Diagnostic Test (Pha) 1 strip IQ4HR 11/20/24 04:00 11/23/24 20:26 1 STRIP Insulin Human Regular IQ4HR SC 11/20/24 04:00 11/23/24 17:35 2 UNITS Dextrose 50 ml UD PRN IV 11/20/24 02:15 11/21/24 17:25 50 ML Cefepime HCl 50 ml @ 12.5 mls/hr DAILY IV 11/20/24 14:00 11/23/24 09:54 12.5 MLS/HR Sodium Chloride 10 ml QSHIFT@10,22 IV 11/20/24 22:00 11/23/24 21:52 10 ML Vasopressin 20 units/Sodium Chloride 100 ml @ 9 mls/hr Q11H7M IV 11/21/24 08:00 Dopamine HCl/ Dextrose 250 ml @ 7.284 mls/ hr Q24H IV 11/21/24 08:00 Enteral Nutritional Formula 1,000 ml 30ML/HR GT 11/21/24 09:00 11/22/24 01:15 1,000 ML Clopidogrel Bisulfate 75 mg DAILY PO 11/22/24 10:00 11/23/24 09:53 75 MG Norepinephrine Bitartrate 250 ml @ 1.875 mls/ hr Q24H IV 11/21/24 20:45 11/23/24 00:17 1.875 MLS/HR Epoetin Anthony-epbx 4,000 unit MWF@2100 SC 11/23/24 21:00 11/23/24 21:00 4,000 UNIT Ondansetron HCl 4 mg Q4HPRN PRN IV 11/23/24 12:30 Examination: GENERAL:Abnormal, LUNGS:Abnormal (Mechanically ventilat), CVS:Normal, NEURO:Normal (Off sedations, following commands) laboratory and microbiology Laboratory Tests 11/23/24 03:00 Test 11/23/24 03:00 Range/Units Serum Glucose 115 H 74-106 mg/dL Problem List/Assessment/Plan Problem List/Assessment/Plan Problem List/Assessment/Plan Non ST-elevation myocardial infarction s/p PTCA with stent to RCA. Pulseless monomorphic ventricular tachycardia/ventricular fibrillation arrest with ROSC. Acute on chronic decompensated HFrEF, newly diagnosed. Severe coronary artery disease s/p PTCAs including 8 ZAK and single-vessel CABG (on ASA). Pulmonary hypertension. Insulin-dependent diabetes mellitus . Dyslipidemia . ESRD on HD. Acute on chronic anemia. Transaminitis. Plan/Recommendation Continued all current supportive medical care. Patient has been seen by Radha rOnelas NP on my behalf, her and I discussed the plan with the patient. Transthoracic echocardiogram reveals EF of 35%, RVSP 60 mmHg. The patient underwent a coronary angiogram with left heart catheterization with a successful stenting of the distal RCA. Today, the patient was back on vasopressor therapy for blood pressure support. We will initiate guideline directed medical therapy for CHF once off of vasopressors and with optimal blood pressure. In the meantime, continue with dual antiplatelet therapy, and lipid-lowering agent. Closely monitor patient's hemoglobin, hematocrit, and platelet level. Close cardiac surveillance. Additional plan as per the hospital course. Plan discussed with: Other Dietary Evaluation Review Comments: Tube feeding peptide based Vital AF 1,2 @45ml/hr providing 1296+ 441(Propofol) and 81 g Protein. this regimen will support pt's 105% estmated protein needs and 90% estimated energy needs. Expected Outcomes/Goals: off vent and advanced to renal standard diet after passing a ADMINISTRATIVE HEARING OFFICER eval. Date of Service: Nov 23, 2024 Billing Provider: REBA ABERNATHY MD Cardiology Common Codes: [id number] CARE 30-74 MIN REBA ABERNATHY MD Nov 23, 2024 22:39
[2024-11-24] VITALS (93 sets, daily range): BP systolic 75–195; BP diastolic 20–106; PULSE 62–113; RESP 11–25; TEMP 97.9–99.7; O2SAT 92–100
[2024-11-24] MEDS: DEXMEDETOMIDINE HCL IN D5W 100 ML IV SCH (03:38)
[2024-11-24 04:05] LABS: Basophils # (auto) 0 10 ^3/uL (0-0.2); Basophils % (auto) 0.7 % (0.0-2.0); Eosinophils # (auto) 0.1 10 ^3/uL (0-0.8); Eosinophils % (auto) 1.2 % (0.0-7.0); Hematocrit 29.5 % (41.0-53.0); Hemoglobin 9.6 g/dL (13.5-17.5); Lymphocytes # (auto) 0.5 10 ^3/uL (0.4-5.4); Lymphocytes % (auto) 7.6 % (10.0-50.0); Mean Corpuscular Hemoglobin 32.8 pg (28.0-32.0); Mean Corpuscular Hgb Conc. 32.7 g/dL (32.0-36.0); Mean Corpuscular Volume 100.4 fL (80.0-100.0); Monocytes # (auto) 0.7 10 ^3/uL (0-1.3); Neutrophils # (auto) 5.3 10 ^3/uL (1.6-8.6); Neutrophils % (auto) 79.5 % (37.0-80.0); Platelet Count (auto) 135 10^3/uL (140-450); Red Blood Cells 2.94 10^6/uL (4.5-5.90); Red Cell Distribution Width 15.5 % (11.8-14.3); White Blood Cell 6.7 10^3/uL (4.4-10.8)
[2024-11-24 04:21] LABS: Alkaline Phosphatase 81 U/L (46-116); Calcium 9.6 mg/dL (8.7-10.4); Carbon Dioxide 24 mmol/L (20-31); Chloride 102 mmol/L (98-107)
[2024-11-24 04:22] LABS: Albumin 3.5 g/dL (3.2-4.8); Anion Gap 14 (5-15); Aspartate Aminotransferase 26 U/L (13-40); BUN/Creatinine Ratio 6.4 (10.0-20.0); Bilirubin, Total 0.6 mg/dL (0.2-1.0); Magnesium 2.3 mg/dL (1.6-2.6); Sodium 140 mmol/L (136-145)
[2024-11-24 04:30] LABS: Alanine Aminotransferase 84 U/L (7-40); Blood Urea Nitrogen 47 mg/dL (9-23); Glucose 115 mg/dL (74-106)
--- NOTE | 2024-11-24 06:09 | DVH ---
CHEST RADIOGRAPH Indication: sob Technique: Single frontal view of the chest was obtained Comparison: XY CHEST PORTABLE on DOS: 11/23/24, XY CHEST PORTABLE on DOS: 11/23/24, XY CHEST PORTABLE o n DOS: 11/22/24 IMPRESSION: Heart appears normal in size. Median sternotomy wires. Enteric tube, endotracheal tube appear satisf actory and stable in position. Left PICC line tip in the region of the cavoatrial junction. No sizab le effusion, focal airspace opacity, or pneumothorax. No significant interval change.
[2024-11-24 07:43] LABS: Base Excess 0.2 mmol/L (-2.0-3.0)
--- NOTE | 2024-11-24 10:55 | DVHPN2 ---
Subjective Update 11/24 patient presented after coding X 5 , CABG, ESRD on HD AV fistula in the right arm. After coding left heart catheterization requiring stent. Also admitted for aspiration pneumonia on antibiotics. Today patient CPAP trial. Focus on complete sedation vacation. Yesterday blood pressure does go up with CPAP trial. Plan discussed with RN if extubation successful. Patient has not had a bowel movement in 3 4 days. Otherwise continue primary team plan Reviewed: H&P Changes from previous H/P or p: No Changes General: Per HPI Objective Vitals Vital Signs Date Time Temp Pulse Resp B/P (MAP) Pulse Ox O2 Delivery O2 Flow Rate FiO2 11/24/24 10:08 72 17 117/39 (65) 100 30 11/24/24 09:45 98.8 209.8 11/24/24 09:40 Mechanical Ventilator+ Intake/Output Intake and Output 11/24/24 07:00 Intake Total 572.984 ml Output Total 0 ml Balance 572.984 ml Intake Oral 227 ml IV Total 345.984 ml Output Urine Total 0 ml Exam General: RASS -3, afebrile, mucosae are moist Cardiovascular: Normal S1 and S2. No murmurs, gallops or rubs Respiratory: Mechanically assisted ventilation, equal bilateral airway entree. Scattered crackles Abdomen: Soft, nontender, no organomegaly, normal bowel sounds. OG tube with brown fluid, on aspiration MSK/skin: Mobilization of limbs cannot be evaluated. Skin is dry and warm. Has right femoral central line with no signs of infection Neurological: Sedated Medications Current Medications Medications Dose Ordered Sig/Gabby Route Start Time Stop Time Status Last Admin Dose Admin Propofol 100 ml @ 2.79 mls/hr Q24H IV 11/19/24 17:45 11/20/24 09:33 16.737 MLS/HR Midazolam HCl 50 ml @ 1 mls/hr Q24H IV 11/19/24 17:45 11/23/24 19:24 2 MLS/HR Fentanyl Citrate 250 ml @ 2.5 mls/hr Q24H IV 11/19/24 17:45 11/24/24 01:42 12.5 MLS/HR Pantoprazole Sodium 40 mg DAILY IV 11/20/24 10:00 11/24/24 09:16 40 MG Amiodarone HCl 400 mg Q12HR PO 11/20/24 10:00 11/24/24 09:17 400 MG Aspirin 81 mg DAILY PO 11/20/24 10:00 11/24/24 09:20 81 MG Atorvastatin Calcium 40 mg HS PO 11/20/24 22:00 11/23/24 21:53 40 MG Diagnostic Test (Pha) 1 strip IQ4HR 11/20/24 04:00 11/24/24 08:01 1 STRIP Insulin Human Regular IQ4HR SC 11/20/24 04:00 11/23/24 17:35 2 UNITS Dextrose 50 ml UD PRN IV 11/20/24 02:15 11/21/24 17:25 50 ML Cefepime HCl 50 ml @ 12.5 mls/hr DAILY IV 11/20/24 14:00 11/24/24 09:16 12.5 MLS/HR Sodium Chloride 10 ml QSHIFT@10,22 IV 11/20/24 22:00 11/24/24 09:17 10 ML Vasopressin 20 units/Sodium Chloride 100 ml @ 9 mls/hr Q11H7M IV 11/21/24 08:00 Dopamine HCl/ Dextrose 250 ml @ 7.284 mls/ hr Q24H IV 11/21/24 08:00 Enteral Nutritional Formula 1,000 ml 30ML/HR GT 11/21/24 09:00 11/22/24 01:15 1,000 ML Clopidogrel Bisulfate 75 mg DAILY PO 11/22/24 10:00 11/24/24 09:16 75 MG Norepinephrine Bitartrate 250 ml @ 1.875 mls/ hr Q24H IV 11/21/24 20:45 11/23/24 00:17 1.875 MLS/HR Epoetin Anthony-epbx 4,000 unit MWF@2100 SD 11/23/24 21:00 11/23/24 21:00 4,000 UNIT Ondansetron HCl 4 mg Q4HPRN PRN IV 11/23/24 12:30 Laboratory Results Laboratory Tests 11/24/24 03:00 Chemistry Test 11/24/24 03:00 Albumin 3.5 g/dL (3.2-4.8) Calcium Level 9.6 mg/dL (8.7-10.4) Magnesium Level 2.3 mg/dL (1.6-2.6) Total Protein 6.0 g/dL (5.7-8.2) LFT Test 11/24/24 03:00 Alanine Aminotransferase (ALT) 84 U/L (7-40) H Alkaline Phosphatase 81 U/L (46-116) Aspartate Amino Transferase (AST) 26 U/L (13-40) Total Bilirubin 0.6 mg/dL (0.2-1.0) Blood Gas Results Test 11/24/24 07:11 Arterial Blood pH 7.392 (7.350-7.450) FiO2 % 30.0 Microbiology Microbiology Date/Time Source Procedure Growth Status 11/20/24 02:10 Nose MRSA Screen - Final Complete 11/19/24 18:11 Blood Blood Culture - Preliminary NO GROWTH AFTER 72 HOURS OF INCUBATION. Resulted Labs and/or images reviewed: Labs reviewed by me, Image(s) reviewed by me Assessment/Plan Assessment/Plan Update 11/24 patient presented after coding X 5 he was FF, CABG, ESRD on HD AV fistula in the right arm. After coding left heart catheterization requiring stent. Also admitted for aspiration pneumonia on antibiotics. Today patient CPAP trial. Focus on complete sedation vacation. Yesterday blood pressure does go up with CPAP trial. Plan discussed with RN if extubation successful. Patient has not had a bowel movement in 3 4 days. Otherwise continue primary team plan Neurology #Metabolic encephalopathy #Possible Anoxic brain injury Head CT unremarkable Sedation vacation performed, patient was awake, gag reflex present, placed back on sedation. Cardiovascular #Cardiac arrest status post ROSC x5 #Cardiogenic shock #Cardiac arrhythmia (V-Fib and pulseless V-Tach) - etiology electrolyte alteration vs ischemia #History of CAD status post CABG (2020) #PCIx8 #Chest pain, NSTEMI, rule out type 1 #Dyslipidemia #H/o hypertension #Acute on chronic systolic CHF Consulted cardiology, LHC performed, s/p PCI x1 Continue aspirin and plavix Continue amiodarone po Maintain map above 60, off Levophed Continue hemodialysis Pulmonology #Acute hypoxic respiratory failure on mechanical ventilation #Possible aspiration pneumonia, Gram-positive versus Gram-negative MV: FIO2 30%, PEEP 5, TV 500, RR 20 Cefepime IV cpap trial today failed, repeat tomorrow Nephrology #End-stage renal disease on hemodialysis #Hyperkalemia, improving Nephrology following Endocrinology #Type 2 diabetes SSI mild Gastroenterology #Transaminitis, likely liver shock Monitor Feedings: Start Nepro Hematology and Oncology #Anemia, mild, microcytic, normochromic Monitor Infectious Disease #Possible aspiration pneumonia, Gram-positive versus Gram-negative #Septic shock due to above Continue cefepime IV continue levophed Dermatology x DVT ppx Heparin SC PUD ppx Protonix Drips Levophed Versed Fent Lines picc line placed on 11/20/24 ET tube, 11/19/24 Plan discussed with: Other Date of Service: Nov 24, 2024 Billing Provider: YURI POTTS MD Common Visit Codes: [id number] CARE 30-74 MIN YURI POTTS MD Nov 24, 2024 10:55
--- NOTE | 2024-11-24 12:30 | DVHPN2 ---
Progress Note - Dictate Date Seen: Nov 24, 2024 Medical Necessity Reason Pt with a Central, PICC or Fol: No The following are medically ne: Central Line Subjective Patient's and patient's son at bedside today vital signs Vital Sign Date Time Temp Pulse Resp B/P (MAP) Pulse Ox O2 Delivery O2 Flow Rate FiO2 11/24/24 11:36 70 21 104/24 (50) 100 30 11/24/24 11:15 98.1 208.6 11/24/24 09:40 Mechanical Ventilator+ Total Intake and Output 11/23/24 11/23/24 11/24/24 15:00 23:00 07:00 Intake Total 110.064 ml 173.252 ml 289.668 ml Output Total 0 ml 0 ml Balance 110.064 ml 173.252 ml 289.668 ml medications Current Medications Medications Dose Ordered Sig/Gabby Route Start Time Stop Time Status Last Admin Dose Admin Propofol 100 ml @ 2.79 mls/hr Q24H IV 11/19/24 17:45 11/20/24 09:33 16.737 MLS/HR Midazolam HCl 50 ml @ 1 mls/hr Q24H IV 11/19/24 17:45 11/23/24 19:24 2 MLS/HR Fentanyl Citrate 250 ml @ 2.5 mls/hr Q24H IV 11/19/24 17:45 11/24/24 01:42 12.5 MLS/HR Pantoprazole Sodium 40 mg DAILY IV 11/20/24 10:00 11/24/24 09:16 40 MG Amiodarone HCl 400 mg Q12HR PO 11/20/24 10:00 11/24/24 09:17 400 MG Aspirin 81 mg DAILY PO 11/20/24 10:00 11/24/24 09:20 81 MG Atorvastatin Calcium 40 mg HS PO 11/20/24 22:00 11/23/24 21:53 40 MG Diagnostic Test (Pha) 1 strip IQ4HR 11/20/24 04:00 11/24/24 08:01 1 STRIP Insulin Human Regular IQ4HR SC 11/20/24 04:00 11/23/24 17:35 2 UNITS Dextrose 50 ml UD PRN IV 11/20/24 02:15 11/21/24 17:25 50 ML Cefepime HCl 50 ml @ 12.5 mls/hr DAILY IV 11/20/24 14:00 11/24/24 09:16 12.5 MLS/HR Sodium Chloride 10 ml QSHIFT@10,22 IV 11/20/24 22:00 11/24/24 09:17 10 ML Vasopressin 20 units/Sodium Chloride 100 ml @ 9 mls/hr Q11H7M IV 11/21/24 08:00 Dopamine HCl/ Dextrose 250 ml @ 7.284 mls/ hr Q24H IV 11/21/24 08:00 Enteral Nutritional Formula 1,000 ml 30ML/HR GT 11/21/24 09:00 11/22/24 01:15 1,000 ML Clopidogrel Bisulfate 75 mg DAILY PO 11/22/24 10:00 11/24/24 09:16 75 MG Norepinephrine Bitartrate 250 ml @ 1.875 mls/ hr Q24H IV 11/21/24 20:45 11/23/24 00:17 1.875 MLS/HR Epoetin Anthony-epbx 4,000 unit MWF@2100 SC 11/23/24 21:00 11/23/24 21:00 4,000 UNIT Ondansetron HCl 4 mg Q4HPRN PRN IV 11/23/24 12:30 objective gen: nad, intubated lungs: occ ronchi cvs: no rub ext: no edema, R UE aVF patent laboratory and microbiology Laboratory Tests 11/24/24 03:00 Test 11/24/24 03:00 Range/Units Serum Glucose 115 H 74-106 mg/dL Assessment/Plan Admitted for cardiac arrest End-stage renal disease on hemodialysis Hyperkalemia Acute respiratory failure Extensive coronary history with new cardiac arrest CAD NSTEMI s/p cath RCA stent, EF 35% anemia - next dialysis tentatively November 26 - discussed with patient's family at bedside - patient's states Mr. Crawford receives dialysis at a local [facility] - we will request transfer of care to [facility] Nephrology team Dietary Evaluation Review Comments: Tube feeding peptide based Vital AF 1,2 @45ml/hr providing 1296+ 441(Propofol) and 81 g Protein. this regimen will support pt's 105% estmated protein needs and 90% estimated energy needs. Expected Outcomes/Goals: off vent and advanced to renal standard diet after passing a [employer] RE[employer] OFFICER eval. Plan discussed with: Spouse CRISTIAN OROZCO MD Nov 24, 2024 12:30
--- NOTE | 2024-11-24 14:14 | DVHPN2 ---
Subjective No cardiac event reported Reviewed: H&P Changes from previous H/P or p: No Changes General: Per HPI Objective Vitals Vital Signs Date Time Temp Pulse Resp B/P (MAP) Pulse Ox O2 Delivery O2 Flow Rate FiO2 11/24/24 12:45 98.1 79 18 139/46 (77) 100 208.6 11/24/24 12:00 Mechanical Ventilator+ 30 30 Intake/Output Intake and Output 11/24/24 07:00 Intake Total 572.984 ml Output Total 0 ml Balance 572.984 ml Intake Oral 227 ml IV Total 345.984 ml Output Urine Total 0 ml General Appearance: Other (Remained intubated and sedated) Cardiovascular: Regular rate, Normal S1, Normal S2 Medications Current Medications Medications Dose Ordered Sig/Gabby Route Start Time Stop Time Status Last Admin Dose Admin Propofol 100 ml @ 2.79 mls/hr Q24H IV 11/19/24 17:45 11/20/24 09:33 16.737 MLS/HR Midazolam HCl 50 ml @ 1 mls/hr Q24H IV 11/19/24 17:45 11/23/24 19:24 2 MLS/HR Fentanyl Citrate 250 ml @ 2.5 mls/hr Q24H IV 11/19/24 17:45 11/24/24 01:42 12.5 MLS/HR Pantoprazole Sodium 40 mg DAILY IV 11/20/24 10:00 11/24/24 09:16 40 MG Amiodarone HCl 400 mg Q12HR PO 11/20/24 10:00 11/24/24 09:17 400 MG Aspirin 81 mg DAILY PO 11/20/24 10:00 11/24/24 09:20 81 MG Atorvastatin Calcium 40 mg HS PO 11/20/24 22:00 11/23/24 21:53 40 MG Diagnostic Test (Pha) 1 strip IQ4HR 11/20/24 04:00 11/24/24 12:15 1 STRIP Insulin Human Regular IQ4HR SC 11/20/24 04:00 11/24/24 12:46 2 UNITS Dextrose 50 ml UD PRN IV 11/20/24 02:15 11/21/24 17:25 50 ML Cefepime HCl 50 ml @ 12.5 mls/hr DAILY IV 11/20/24 14:00 11/24/24 09:16 12.5 MLS/HR Sodium Chloride 10 ml QSHIFT@10,22 IV 11/20/24 22:00 11/24/24 09:17 10 ML Vasopressin 20 units/Sodium Chloride 100 ml @ 9 mls/hr Q11H7M IV 11/21/24 08:00 Dopamine HCl/ Dextrose 250 ml @ 7.284 mls/ hr Q24H IV 11/21/24 08:00 Enteral Nutritional Formula 1,000 ml 30ML/HR GT 11/21/24 09:00 11/22/24 01:15 1,000 ML Clopidogrel Bisulfate 75 mg DAILY PO 11/22/24 10:00 11/24/24 09:16 75 MG Norepinephrine Bitartrate 250 ml @ 1.875 mls/ hr Q24H IV 11/21/24 20:45 11/23/24 00:17 1.875 MLS/HR Epoetin Anthony-epbx 4,000 unit MWF@2100 SC 11/23/24 21:00 11/23/24 21:00 4,000 UNIT Ondansetron HCl 4 mg Q4HPRN PRN IV 11/23/24 12:30 Laboratory Results Laboratory Tests 11/24/24 03:00 Chemistry Test 11/24/24 03:00 Albumin 3.5 g/dL (3.2-4.8) Calcium Level 9.6 mg/dL (8.7-10.4) Magnesium Level 2.3 mg/dL (1.6-2.6) Total Protein 6.0 g/dL (5.7-8.2) LFT Test 11/24/24 03:00 Alanine Aminotransferase (ALT) 84 U/L (7-40) H Alkaline Phosphatase 81 U/L (46-116) Aspartate Amino Transferase (AST) 26 U/L (13-40) Total Bilirubin 0.6 mg/dL (0.2-1.0) Blood Gas Results Test 11/24/24 07:11 Arterial Blood pH 7.392 (7.350-7.450) FiO2 % 30.0 Microbiology Microbiology Date/Time Source Procedure Growth Status 11/20/24 02:10 Nose MRSA Screen - Final Complete 11/19/24 18:11 Blood Blood Culture - Preliminary NO GROWTH AFTER 72 HOURS OF INCUBATION. Resulted Assessment/Plan Assessment/Plan Problem List/Assessment/Plan Non ST-elevation myocardial infarction s/p PTCA with stent to RCA Pulseless monomorphic ventricular tachycardia/ventricular fibrillation arrest with ROSC Acute on chronic decompensated HFrEF, newly diagnosed Severe coronary artery disease s/p PTCAs including 8 ZAK and single-vessel CABG (on ASA) Pulmonary hypertension Insulin-dependent diabetes mellitus Dyslipidemia ESRD on HD Acute on chronic anemia Transaminitis Plan/Recommendation (Dr. Abernathy): Transthoracic echocardiogram reveals EF of 35%, RVSP 60 mmHg. The patient underwent a coronary angiogram with left heart catheterization with a successful stenting of the distal RCA. We will initiate guideline directed medical therapy for CHF once off of vasopressors and with optimal blood pressure. In the meantime, continue with dual antiplatelet therapy, and lipid-lowering agent. Closely monitor patient's hemoglobin, hematocrit, and platelet level. Close cardiac surveillance. Thank you for allowing us to care for this patient. Please call with any questions or concerns. Critical care time: 45 min. This medical document was created using an electronic medical record system with voice recognition software and computerized dictation system. Although this document has been carefully reviewed, there might still be some phonetic and typographical errors. Occasional wrong-word or ``sound-alike substitutions may have occurred due to the inherent limitations of voice recognition software. These areas are purely typographical due to imperfections of the software programs and do not reflect any compromise in the patient's medical care. Please read the chart carefully and recognize, using context, where these substitutions have occurred. Plan discussed with: Other (Bedside RN) Plan discussed with: Patient, Other (RN) Date of Service: Nov 24, 2024 Billing Provider: REBA ABERNATHY MD Common Visit Codes: CONSULT ONLY Consultation Codes: [id number] CONSULT <60MIN CHRISTINA FONTAINE BREED TO [employer] PRODUCTION TECHNICIAN Nov 24, 2024 14:14
[2024-11-24 15:12] LABS: Base Excess 4.5 mmol/L (-2.0-3.0)
--- NOTE | 2024-11-24 16:18 | DVHPN2 ---
Progress Note - Dictate Date Seen: Nov 24, 2024 Medical Necessity Reason Pt with a Central, PICC or Fol: No The following are medically ne: Central Line Subjective care transferred to our group vital signs Vital Sign Date Time Temp Pulse Resp B/P (MAP) Pulse Ox O2 Delivery O2 Flow Rate FiO2 11/24/24 15:00 99.1 86 15 151/39 (76) 98 210.4 11/24/24 14:08 30 11/24/24 14:00 Mechanical Ventilator+ Total Intake and Output 11/23/24 11/23/24 11/24/24 15:00 23:00 07:00 Intake Total 110.064 ml 173.252 ml 289.668 ml Output Total 0 ml 0 ml Balance 110.064 ml 173.252 ml 289.668 ml medications Current Medications Medications Dose Ordered Sig/Gabby Route Start Time Stop Time Status Last Admin Dose Admin Propofol 100 ml @ 2.79 mls/hr Q24H IV 11/19/24 17:45 11/20/24 09:33 16.737 MLS/HR Midazolam HCl 50 ml @ 1 mls/hr Q24H IV 11/19/24 17:45 11/23/24 19:24 2 MLS/HR Fentanyl Citrate 250 ml @ 2.5 mls/hr Q24H IV 11/19/24 17:45 11/24/24 01:42 12.5 MLS/HR Pantoprazole Sodium 40 mg DAILY IV 11/20/24 10:00 11/24/24 09:16 40 MG Amiodarone HCl 400 mg Q12HR PO 11/20/24 10:00 11/24/24 09:17 400 MG Aspirin 81 mg DAILY PO 11/20/24 10:00 11/24/24 09:20 81 MG Atorvastatin Calcium 40 mg HS PO 11/20/24 22:00 11/23/24 21:53 40 MG Diagnostic Test (Pha) 1 strip IQ4HR 11/20/24 04:00 11/24/24 12:15 1 STRIP Insulin Human Regular IQ4HR SC 11/20/24 04:00 11/24/24 12:46 2 UNITS Dextrose 50 ml UD PRN IV 11/20/24 02:15 11/21/24 17:25 50 ML Cefepime HCl 50 ml @ 12.5 mls/hr DAILY IV 11/20/24 14:00 11/24/24 09:16 12.5 MLS/HR Sodium Chloride 10 ml QSHIFT@10,22 IV 11/20/24 22:00 11/24/24 09:17 10 ML Vasopressin 20 units/Sodium Chloride 100 ml @ 9 mls/hr Q11H7M IV 11/21/24 08:00 Dopamine HCl/ Dextrose 250 ml @ 7.284 mls/ hr Q24H IV 11/21/24 08:00 Enteral Nutritional Formula 1,000 ml 30ML/HR GT 11/21/24 09:00 11/22/24 01:15 1,000 ML Clopidogrel Bisulfate 75 mg DAILY PO 11/22/24 10:00 11/24/24 09:16 75 MG Norepinephrine Bitartrate 250 ml @ 1.875 mls/ hr Q24H IV 11/21/24 20:45 11/23/24 00:17 1.875 MLS/HR Epoetin Anthony-epbx 4,000 unit MWF@2100 SC 11/23/24 21:00 11/23/24 21:00 4,000 UNIT Ondansetron HCl 4 mg Q4HPRN PRN IV 11/23/24 12:30 objective extubated lungs : bilateral good air entry cvs : s1,s2 RRR Abd : soft , BS+ FINANCE LEAD : extubated ext : no edema laboratory and microbiology Laboratory Tests 11/24/24 03:00 Test 11/24/24 03:00 Range/Units Serum Glucose 115 H 74-106 mg/dL Problem List End-stage renal disease on hemodialysis s/p cardiac arrest Hyperkalemia ,resolved Acute respiratory failure , extubated today Extensive coronary history with new cardiac arrest CAD NSTEMI s/p cath RCA stent, EF 35% anemia Assessment/Plan continue with levophed drip . Next HD on Tuesday Dietary Evaluation Review Comments: Tube feeding peptide based Vital AF 1,2 @45ml/hr providing 1296+ 441(Propofol) and 81 g Protein. this regimen will support pt's 105% estmated protein needs and 90% estimated energy needs. Expected Outcomes/Goals: off vent and advanced to renal standard diet after passing a LATEX CASTER eval. Plan discussed with: CHANDRAKANT Brush MD Nov 24, 2024 16:18
[2024-11-24 16:52] LABS: Base Excess -0.1 mmol/L (-2.0-3.0)
--- NOTE | 2024-11-24 19:41 | DVHPN2 ---
Consult Progress Note Subjective Other Systems: Patient was seen and evaluated in follow up in the ICU. Patient is intubated on ventilator. 30% FiO2. No cardiac events reported. Family at bedside. HGB 9.6, HCT 29.5, BUN 47, CURRICULUM DESIGNER 7.40, ALT 84. Objective vital signs Vital Sign Date Time Temp Pulse Resp B/P (MAP) Pulse Ox O2 Delivery O2 Flow Rate FiO2 11/24/24 14:08 83 22 164/69 (100) 100 30 11/24/24 12:45 98.1 208.6 11/24/24 12:00 Mechanical Ventilator+ Total Intake and Output 11/23/24 11/23/24 11/24/24 15:00 23:00 07:00 Intake Total 110.064 ml 173.252 ml 289.668 ml Output Total 0 ml 0 ml Balance 110.064 ml 173.252 ml 289.668 ml medications Current Medications Medications Dose Ordered Sig/Gabby Route Start Time Stop Time Status Last Admin Dose Admin Propofol 100 ml @ 2.79 mls/hr Q24H IV 11/19/24 17:45 11/20/24 09:33 16.737 MLS/HR Midazolam HCl 50 ml @ 1 mls/hr Q24H IV 11/19/24 17:45 11/23/24 19:24 2 MLS/HR Fentanyl Citrate 250 ml @ 2.5 mls/hr Q24H IV 11/19/24 17:45 11/24/24 01:42 12.5 MLS/HR Pantoprazole Sodium 40 mg DAILY IV 11/20/24 10:00 11/24/24 09:16 40 MG Amiodarone HCl 400 mg Q12HR PO 11/20/24 10:00 11/24/24 09:17 400 MG Aspirin 81 mg DAILY PO 11/20/24 10:00 11/24/24 09:20 81 MG Atorvastatin Calcium 40 mg HS PO 11/20/24 22:00 11/23/24 21:53 40 MG Diagnostic Test (Pha) 1 strip IQ4HR 11/20/24 04:00 11/24/24 12:15 1 STRIP Insulin Human Regular IQ4HR SC 11/20/24 04:00 11/24/24 12:46 2 UNITS Dextrose 50 ml UD PRN IV 11/20/24 02:15 11/21/24 17:25 50 ML Cefepime HCl 50 ml @ 12.5 mls/hr DAILY IV 11/20/24 14:00 11/24/24 09:16 12.5 MLS/HR Sodium Chloride 10 ml QSHIFT@10,22 IV 11/20/24 22:00 11/24/24 09:17 10 ML Vasopressin 20 units/Sodium Chloride 100 ml @ 9 mls/hr Q11H7M IV 11/21/24 08:00 Dopamine HCl/ Dextrose 250 ml @ 7.284 mls/ hr Q24H IV 11/21/24 08:00 Enteral Nutritional Formula 1,000 ml 30ML/HR GT 11/21/24 09:00 11/22/24 01:15 1,000 ML Clopidogrel Bisulfate 75 mg DAILY PO 11/22/24 10:00 11/24/24 09:16 75 MG Norepinephrine Bitartrate 250 ml @ 1.875 mls/ hr Q24H IV 11/21/24 20:45 11/23/24 00:17 1.875 MLS/HR Epoetin Anthony-epbx 4,000 unit MWF@2100 SC 11/23/24 21:00 11/23/24 21:00 4,000 UNIT Ondansetron HCl 4 mg Q4HPRN PRN IV 11/23/24 12:30 Examination: GENERAL:Abnormal, LUNGS:Abnormal ((Mechanically ventilated ), CVS:Normal, ABDOMEN:Normal, SKIN:Normal, NEURO:Normal (Off sedations, following commands) laboratory and microbiology Laboratory Tests 11/24/24 03:00 Test 11/24/24 03:00 Range/Units Serum Glucose 115 H 74-106 mg/dL Problem List/Assessment/Plan Problem List/Assessment/Plan Problem List/Assessment/Plan Non ST-elevation myocardial infarction s/p PTCA with stent to RCA. Pulseless monomorphic ventricular tachycardia/ventricular fibrillation arrest with ROSC. Acute on chronic decompensated HFrEF, newly diagnosed. Severe coronary artery disease s/p PTCAs including 8 ZAK and single-vessel CABG (on ASA). Pulmonary hypertension. Insulin-dependent diabetes mellitus . Dyslipidemia . ESRD on HD. Acute on chronic anemia. Transaminitis. Plan/Recommendation Continued all current supportive medical care. Patient has been seen by Roxy Hernandez NP on my behalf, her and I discussed the plan with the patient. Transthoracic echocardiogram reveals EF of 35%, RVSP 60 mmHg. The patient underwent a coronary angiogram with left heart catheterization with a successful stenting of the distal RCA. We will initiate guideline directed medical therapy for CHF once off of vasopressors and with optimal blood pressure. In the meantime, continue with dual antiplatelet therapy, and lipid-lowering agent. Closely monitor patient's hemoglobin, hematocrit, and platelet level. Close cardiac surveillance. Additional plan as per the hospital course. Plan discussed with: Other Dietary Evaluation Review Comments: Tube feeding peptide based Vital AF 1,2 @45ml/hr providing 1296+ 441(Propofol) and 81 g Protein. this regimen will support pt's 105% estmated protein needs and 90% estimated energy needs. Expected Outcomes/Goals: off vent and advanced to renal standard diet after passing a SHANK SCOURER eval. Date of Service: Nov 24, 2024 Billing Provider: REBA ABERNATHY MD Cardiology Common Codes: 58317-VFOIDUYR CARE 30-74 MIN REBA ABERNATHY MD Nov 24, 2024 14:17
--- NOTE | 2024-11-24 21:20 | DVHINCON2 ---
Date of service: Nov 24, 2024 Referring Physician Covering ICU Reason for Consultation Acute hypoxic respiratory failure requiring mechanical ventilator, pulmonary hypertension. History of Present Illness A 54-year-old man with PMHx of diabetes, dyslipidemia, hypertension, ESRD on dialysis M-W-F, and CAD with history of NH who presented to the ED on 11/19/24 via EMS due to cardiac arrest. Due to clinical status, obtained information from EMR and . Per EMS report, patient experienced a witnessed arrest at home, family reported patient complained of chest pain before arrest, and he was also having worsening chest pain for the past month which was partially relieved by nitroglycerin. Estimated downtime of less than 10 minutes. During pre- hospital resuscitation EMS administered three doses of epi, one dose of permanent, one dose of calcium, achieving ROSC twice en route. During period in ER patient coded twice, with evidence of ventricular fibrillation, delivered one shock (200 joules) and obtaining ROSC. Patient was admitted for further care. Pulmonary consultation is requested for evaluation and management of acute hypoxic respiratory failure requiring mechanical ventilator and pulmonary hypertension. Review of Systems: 14-point review of systems negative unless otherwise noted above. Past Medical History: Diabetes, dyslipidemia, hypertension, ESRD on dialysis M-W-F, CAD with history of NH, erectile dysfunction status postop. Past Surgical History: AV fistula on right arm, CABG in 2020, status post multiple PCI with a total of eight ZAK placed (last one in 2020) Medications: Reviewed. Allergies: Amlodipine. Family History: No family history of premature CAD. No family history of lung disorders. Social History: Quit tobacco approximately 20 years ago (10 pack-year history). Denies current tobacco, alcohol and other drug abuse. Family History: Diabetes mellitus G8 FATHER Allergies: Coded Allergies: Amlodipine (Verified Allergy, Unknown, 11/20/24) Home Meds Reported Medications Nitroglycerin (NTROSTAT SUBLINGUAL) 0.4 Mg Sl, 0.4 MG SL PRN, TAB *MAY REPEAT EVERY 5 MINUTES X 3 TOTAL IF NO RELIEF, INITIATE ANALGESIC THERAPY. NOTIFY PHYSICIAN *Do not crush. 11/20/24 Trazodone Hcl (Trazodone Hcl) 50 Mg Tab, 50 MG PO HS, MG TAKE 2 TO 3 TABLETS BY MOUTH NEEDED 11/20/24 Losartan Potassium (Losartan Potassium) 50 Mg Tab, 50 MG PO DAILY for 30 Days, MG 11/20/24 Clopidogrel Bisulfate (CLOPIDOGREL) 75 Mg Tab, 75 MG PO DAILY for 30 Days, MG 11/20/24 Atorvastatin Calcium (ATORVASTATIN CALCIUM) 80 Mg Tab, 80 MG PO DAILY@DINNER, TAB 11/20/24 Aspirin (Aspir-Low) 81 Mg Tab, 81 MG PO DAILY for 30 Days, MG 11/20/24 Carvedilol (Carvedilol) 12.5 Mg Tab, 12.5 MG PO Q12HR for 30 Days, MG 11/20/24 Vital Signs Vital Signs Date Time Temp Pulse Resp B/P (MAP) Pulse Ox O2 Delivery O2 Flow Rate FiO2 11/24/24 20:15 100 Nasal Cannula 3.0 11/24/24 20:15 32 11/24/24 20:00 16 11/24/24 20:00 96 11/24/24 18:45 98.2 195/78 (117) 208.8 Physical Exam Gen.: Patient lying in bed in no apparent distress. On supplemental oxygen. Head: Normocephalic, atraumatic. Eyes: EOMI/PERRLA. Ears: Normal hearing. Normal anatomy. Neck/trachea: Trachea midline, supple. Nose: Normal external anatomy. Mouth: Moist mucous membranes. Chest: Decreased air entry bilaterally. No wheezing or rhonchi. Cardiovascular: Positive S1, positive S2. Regular rate and rhythm. Abdomen: Positive bowel sounds in all 4 quadrants. Soft, non-tender, non- distended. : Deferred. Rectal: Deferred. Skin: Warm, dry. Intact. Extremities: 2+ radial pulses bilaterally. No lower extremity edema. Neuro: Awake, alert, oriented x3. No gross motor or sensory deficits. Cranial nerves II through XII intact. Gait not assessed. Labs/Diagnostic Data Labs Test 11/24/24 17:59 11/24/24 16:46 11/24/24 15:04 11/24/24 07:11 Range/Units POC Glucose 124 H 70-106 mg/dl Blood Gas Specimen Type Arterial Blood Gas Sample Site Left radial Blood Gas Patient Temperature 37.0 Arterial Blood Date Drawn [id number] Arterial Blood pH 7.407 7.350-7.450 Arterial Blood Partial Pressure CO2 39.9 35.0-48.0 mmHg Arterial Blood Partial Pressure O2 101.9 83.0-108.0 mmHg Arterial Blood HCO3 24.6 21.0-28.0 mmol/L Arterial Blood Oxygen Saturation 97.0 94.0-98.0 % Arterial Blood Base Excess -0.1 -2.0-3.0 mmol/L Arterial Blood Oxyhemoglobin 96.1 94.0-98.0 % Arterial Blood Carboxyhemoglobin 0.6 0.5-1.5 % Arterial Blood Methemoglobin 0.3 0.0-1.5 % Miguel Test Yes Blood Gas Total Hemoglobin 11.90 L 13.5-17.5 g/dL Blood Gas Modality Mask - bipap FiO2 % 30.0 Blood Gas Pressure Support 7 Blood Gas EPAP 5 Blood Gas IPAP 12 Blood Gas PEEP or CPAP 5.0 Blood Gas Set Respiration Rate 16.0 Blood Gas Tidal Volume 500.0 Test 11/24/24 03:00 11/22/24 07:18 11/21/24 17:00 11/21/24 03:20 Range/Units White Blood Count 6.7 4.4-10.8 10^3/uL Red Blood Count 2.94 L 4.5-5.90 10^6/uL Hemoglobin 9.6 L 13.5-17.5 g/dL Hematocrit 29.5 L 41.0-53.0 % Mean Corpuscular Volume 100.4 H 80.0-100.0 fL Mean Corpuscular Hemoglobin 32.8 H 28.0-32.0 pg Mean Corpuscular Hemoglobin Concent 32.7 32.0-36.0 g/dL Red Cell Distribution Width 15.5 H 11.8-14.3 % Platelet Count 135 L 140-450 10^3/uL Mean Platelet Volume 9.3 6.9-10.8 fL Neutrophils (%) (Auto) 79.5 37.0-80.0 % Lymphocytes (%) (Auto) 7.6 L 10.0-50.0 % Monocytes (%) (Auto) 11.0 0.0-12.0 % Eosinophils (%) (Auto) 1.2 0.0-7.0 % Basophils (%) (Auto) 0.7 0.0-2.0 % Neutrophils # (Auto) 5.3 1.6-8.6 10 ^3/uL Lymphocytes # (Auto) 0.5 0.4-5.4 10 ^3/uL Monocytes # (Auto) 0.7 0-1.3 10 ^3/uL Eosinophils # (Auto) 0.1 0-0.8 10 ^3/uL Basophils # (Auto) 0 0-0.2 10 ^3/uL Nucleated Red Blood Cells 0.0 % Sodium Level 140 136-145 mmol/L Potassium Level 4.0 3.5-5.1 mmol/L Chloride Level 102 98-107 mmol/L Carbon Dioxide Level 24 20-31 mmol/L Anion Gap 14 5-15 Blood Urea Nitrogen 47 #H 9-23 mg/dL Creatinine 7.40 H 0.700-1.30 mg/dL Glomerular Filtration Rate Calc 8 >90 mL/min BUN/Creatinine Ratio 6.4 L 10.0-20.0 Serum Glucose 115 H 74-106 mg/dL Calcium Level 9.6 8.7-10.4 mg/dL Magnesium Level 2.3 1.6-2.6 mg/dL Total Bilirubin 0.6 0.2-1.0 mg/dL Aspartate Amino Transferase (AST) 26 13-40 U/L Alanine Aminotransferase (ALT) 84 H 7-40 U/L Alkaline Phosphatase 81 46-116 U/L Total Protein 6.0 5.7-8.2 g/dL Albumin 3.5 3.2-4.8 g/dL Blood Gas Spontaneous Rate 16 Blood Gas Spontaneous Tidal Volume 510 Bl Gas Inspiratory/Expiratory Ratio 1:3.2 Prothrombin Time 11.5 9.3-11.8 sec Prothrombin Time INR 1.09 0.9-1.15 Activated Partial Thromboplast Time > 139.0 *H 24.5-34.5 SEC Hepatitis B Surface Antigen Negative Negative Troponin I High Sensitivity 1008 *H </=54 ng/L Test 11/20/24 18:14 11/20/24 04:02 11/19/24 19:15 11/19/24 19:01 Range/Units Influenza Type A Antigen Negative Negative Influenza Type B Antigen Negative Negative SARS-CoV-2 Antigen (Rapid) Negative NEGATIVE Hemoglobin A1c 5.5 <5.7 % A1C Lactic Acid Level 1.4 0.4-2.0 mmol/L Phosphorus Level 7.1 H 2.4-5.1 mg/dL Triglycerides Level 182 H < 150 mg/dL Cholesterol Level 126 < 200 mg/dL LDL Cholesterol 39 < 100 mg/dL HDL Cholesterol 55 40-59 mg/dL Vitamin B12 Level 821 211-911 pg/mL Vitamin D 25-Hydroxy 19.8 L 30.0-100 ng/mL Thyroid Stimulating Hormone (TSH) 0.82 0.55-4.78 uIU/mL Creatine Kinase 352 H 46-171 U/L Specimen Drawn By Billing Typist ronak vail Blood Gas Critical Value Read Back Yes Blood Gas Notified Whom clinton Jacob Blood Gas Notified Time [id number] Blood Gas Notified By Billing Typist ronak vail Test 11/19/24 17:37 Range/Units Differential Total Cells Counted 100.0 100 Neutrophils % (Manual) 60 37.0-80.0 Band Neutrophils % (Manual) 3 Lymphocytes % (Manual) 24 10.0-50.0 Monocytes % (Manual) 12 0-12 Eosinophils % (Manual) 1 0-7 Basophils % (Manual) 0 0.0-2.0 Metamyelocytes % (manual) 0 Myelocytes % (Manual) 0 Promyelocytes % (Manual) 0 Blast Cells % (Manual) 0 Reactive Lymphocytes 0 Platelet Estimate Adequate Anisocytosis (manual) Slight Macrocytosis Moderate Microbiology Date/Time Source Procedure Growth Status 11/20/24 02:10 Nose MRSA Screen - Final Complete 11/19/24 18:11 Blood Blood Culture - Final NO GROWTH AFTER 5 DAYS OF INCUBATION. Complete Assessment Impression: Acute hypoxic respiratory failure Mechanical ventilation, s/p extubation Pulmonary hypertension. Non ST-elevation myocardial infarction, s/p PTCA with stent to RCA. Pulseless monomorphic ventricular tachycardia/ventricular fibrillation arrest with ROSC. Acute on chronic decompensated HFrEF, newly diagnosed. Severe coronary artery disease, s/p PTCAs including 8 ZAK and single-vessel CABG (on ASA). Insulin-dependent diabetes mellitus . ESRD, on HD. Hx of nicotine dependence Anemia. Transaminitis Plan: Currently s/p extubation Bridged with BIPAP, transitioned to supplemental oxygen 3 LPM NC Taper O2 as tolerated. Titrate to keep O2 sats above 92%. Continue antibiotics Off Levophed since 1730 hours, hemodynamically stable. Continue Plavix, aspirin Cardiology recs appreciated. Monitor renal function. Monitor electrolytes. Supplement as necessary. Monitor ins and outs. DVT prophylaxis. Prognosis: Poor given patient's multiple co-morbidities. Condition: Critical Rest of plan per hospitalist and other consultants. A total of 35 minutes of critical care time was spent reviewing the patient record, examining the patient, making a diagnostic and therapeutic plan, discussing this plan with the medical personnel, following up on diagnostic studies and following the patient for clinical stability excluding any and all procedures. At least 50% of this time was spent in direct, [id number] co ntact. Thank you, Dr. Santizo, for allowing me to participate in this patient's care. Further recommendations will depend on the patient's clinical course. Please do not hesitate to contact me if you have any questions or concerns. This medical document was created using an electronic medical record system with [employer] dictation system. Although these documentations are being carefully reviewed, there may still be some phonetic and typographical changes. The errors are purely typographical, due to imperfection on the software program, and do not reflect any compromise in the patient's medical care. Plan discussed with: Other (GARY Cantu/Dr. Santizo) LILIA DOMÍNGUEZ MD Nov 24, 2024 21:20
[2024-11-24] MEDS: ONDANSETRON HCL 4 MG/2 ML VIAL IV PRN (22:39)
[2024-11-25] VITALS (23 sets, daily range): BP systolic 109–159; BP diastolic 37–89; PULSE 72–97; RESP 12–26; TEMP 97.4–98.6; O2SAT 95–100
[2024-11-25] MEDS: KETOROLAC TROMETH 30 MG/ML 1ML VIAL IV ONE (02:46)
[2024-11-25 04:06] LABS: Basophils # (auto) 0.1 10 ^3/uL (0-0.2); Basophils % (auto) 0.7 % (0.0-2.0); Eosinophils # (auto) 0.1 10 ^3/uL (0-0.8); Eosinophils % (auto) 0.8 % (0.0-7.0); Hematocrit 32.5 % (41.0-53.0); Hemoglobin 10.8 g/dL (13.5-17.5); Lymphocytes # (auto) 0.4 10 ^3/uL (0.4-5.4); Lymphocytes % (auto) 4.2 % (10.0-50.0); Mean Corpuscular Hgb Conc. 33.2 g/dL (32.0-36.0); Mean Corpuscular Volume 99.5 fL (80.0-100.0); Monocytes % (auto) 9.8 % (0.0-12.0); Neutrophils # (auto) 8.3 10 ^3/uL (1.6-8.6); Neutrophils % (auto) 84.5 % (37.0-80.0); Platelet Count (auto) 153 10^3/uL (140-450); Red Blood Cells 3.27 10^6/uL (4.5-5.90); Red Cell Distribution Width 15.1 % (11.8-14.3); White Blood Cell 9.8 10^3/uL (4.4-10.8)
[2024-11-25 04:20] LABS: Albumin 4.1 g/dL (3.2-4.8); Alkaline Phosphatase 90 U/L (46-116); Anion Gap 17 (5-15); Aspartate Aminotransferase 31 U/L (13-40); Carbon Dioxide 24 mmol/L (20-31); Potassium 4.5 mmol/L (3.5-5.1); Sodium 139 mmol/L (136-145); Total Protein 6.9 g/dL (5.7-8.2)
[2024-11-25 04:21] LABS: Alanine Aminotransferase 78 U/L (7-40); Bilirubin, Total 0.6 mg/dL (0.2-1.0); Blood Urea Nitrogen 69 mg/dL (9-23); Calcium 10.8 mg/dL (8.7-10.4); Chloride 98 mmol/L (98-107); Glucose 117 mg/dL (74-106)
[2024-11-25 07:04] LABS: Base Excess -2.9 mmol/L (-2.0-3.0)
--- NOTE | 2024-11-25 09:12 | DVHPN2 ---
Progress Note - Dictate Date Seen: Nov 25, 2024 Medical Necessity Reason Pt with a Central, PICC or Fol: No The following are medically ne: Central Line Subjective Extubated . off levophed vital signs Vital Sign Date Time Temp Pulse Resp B/P (MAP) Pulse Ox O2 Delivery O2 Flow Rate FiO2 11/25/24 08:00 98.0 93 24 140/38 (72) 96 98.0 11/25/24 08:00 Room Air* 0 21 Total Intake and Output 11/24/24 11/24/24 11/25/24 15:00 23:00 07:00 Intake Total 89.182 ml 0 ml 0 ml Output Total 0 ml 0 ml Balance 89.182 ml 0 ml 0 ml medications Current Medications Medications Dose Ordered Sig/Gabby Route Start Time Stop Time Status Last Admin Dose Admin Propofol 100 ml @ 2.79 mls/hr Q24H IV 11/19/24 17:45 11/20/24 09:33 16.737 MLS/HR Midazolam HCl 50 ml @ 1 mls/hr Q24H IV 11/19/24 17:45 11/23/24 19:24 2 MLS/HR Fentanyl Citrate 250 ml @ 2.5 mls/hr Q24H IV 11/19/24 17:45 11/24/24 01:42 12.5 MLS/HR Pantoprazole Sodium 40 mg DAILY IV 11/20/24 10:00 11/24/24 09:16 40 MG Amiodarone HCl 400 mg Q12HR PO 11/20/24 10:00 11/24/24 09:17 400 MG Aspirin 81 mg DAILY PO 11/20/24 10:00 11/24/24 09:20 81 MG Atorvastatin Calcium 40 mg HS PO 11/20/24 22:00 11/23/24 21:53 40 MG Diagnostic Test (Pha) 1 strip IQ4HR 11/20/24 04:00 11/25/24 08:00 1 STRIP Insulin Human Regular IQ4HR SC 11/20/24 04:00 11/24/24 19:55 2 UNITS Dextrose 50 ml UD PRN IV 11/20/24 02:15 11/21/24 17:25 50 ML Cefepime HCl 50 ml @ 12.5 mls/hr DAILY IV 11/20/24 14:00 11/24/24 09:16 12.5 MLS/HR Sodium Chloride 10 ml QSHIFT@10,22 IV 11/20/24 22:00 11/24/24 22:00 10 ML Vasopressin 20 units/Sodium Chloride 100 ml @ 9 mls/hr Q11H7M IV 11/21/24 08:00 Dopamine HCl/ Dextrose 250 ml @ 7.284 mls/ hr Q24H IV 11/21/24 08:00 Enteral Nutritional Formula 1,000 ml 30ML/HR GT 11/21/24 09:00 11/22/24 01:15 1,000 ML Clopidogrel Bisulfate 75 mg DAILY PO 11/22/24 10:00 11/24/24 09:16 75 MG Norepinephrine Bitartrate 250 ml @ 1.875 mls/ hr Q24H IV 11/21/24 20:45 11/23/24 00:17 1.875 MLS/HR Epoetin Anthony-epbx 4,000 unit MWF@2100 SC 11/23/24 21:00 11/23/24 21:00 4,000 UNIT Ondansetron HCl 4 mg Q4HPRN PRN IV 11/23/24 12:30 11/25/24 05:09 4 MG objective extubated lungs : bilateral good air entry cvs : s1,s2 RRR Abd : soft , BS+ GROUND WATER TECHNICIAN : extubated ext : no edema laboratory and microbiology Laboratory Tests 11/25/24 03:00 Test 11/25/24 03:00 Range/Units Serum Glucose 117 H 74-106 mg/dL Problem List End-stage renal disease on hemodialysis s/p cardiac arrest Hyperkalemia ,resolved Acute respiratory failure , extubated Extensive coronary history with new cardiac arrest CAD NSTEMI s/p cath RCA stent, EF 35% anemia Assessment/Plan HD tomorrow PT as per primary . Downgraded to tele Dietary Evaluation Review Comments: Tube feeding peptide based Vital AF 1,2 @45ml/hr providing 1296+ 441(Propofol) and 81 g Protein. this regimen will support pt's 105% estmated protein needs and 90% estimated energy needs. Expected Outcomes/Goals: off vent and advanced to renal standard diet after passing a SALESPERSON HOSIERY eval. Plan discussed with: Patient CHANDRAKANT PICKETT MD Nov 25, 2024 09:12
--- NOTE | 2024-11-25 09:17 | DVHPN2 ---
Subjective Update 11/24 patient presented after coding X 5 , CABG, ESRD on HD AV fistula in the right arm. After coding left heart catheterization requiring stent. Also admitted for aspiration pneumonia on antibiotics. Today patient CPAP trial. Focus on complete sedation vacation. Yesterday blood pressure does go up with CPAP trial. Plan discussed with RN if extubation successful. Patient has not had a bowel movement in 3 4 days. Otherwise continue primary team plan. extubated 11/24 11/25 - extubated yest to bipap. NC thereafter easily. poor swallow . poor voice. this AM he is improved swallow. some confusion, likely icu delirium. VSS, no drips. stable to downgrade to tele w sitter. he keeps tryig to get out of bed. otherwise continue treatment plan as prior. will check tsh and ammonia to r/o other causes. cmp good. abg good. no need cxr today. Reviewed: H&P Changes from previous H/P or p: No Changes General: Per HPI Objective Vitals Vital Signs Date Time Temp Pulse Resp B/P (MAP) Pulse Ox O2 Delivery O2 Flow Rate FiO2 11/25/24 08:00 98.0 93 24 140/38 (72) 96 98.0 11/25/24 08:00 Room Air* 0 21 Intake/Output Intake and Output 11/25/24 07:00 Intake Total 89.182 ml Output Total 0 ml Balance 89.182 ml Intake Oral 0 ml IV Total 89.182 ml Output Urine Total 0 ml Exam General: extubated 11/24 , afebrile, mucosae are moist Cardiovascular: Normal S1 and S2. No murmurs, gallops or rubs Respiratory: Mechanically assisted ventilation, equal bilateral airway entree. Scattered crackles Abdomen: Soft, nontender, no organomegaly, normal bowel sounds. OG tube with brown fluid, on aspiration MSK/skin: Mobilization of limbs cannot be evaluated. Skin is dry and warm. Has right femoral central line with no signs of infection Neurological: AOx2 , not to time. no FND. voice poor due to extubation General Appearance: Other (Remained intubated and sedated) Cardiovascular: Regular rate, Normal S1, Normal S2 Medications Current Medications Medications Dose Ordered Sig/Gabby Route Start Time Stop Time Status Last Admin Dose Admin Propofol 100 ml @ 2.79 mls/hr Q24H IV 11/19/24 17:45 11/20/24 09:33 16.737 MLS/HR Midazolam HCl 50 ml @ 1 mls/hr Q24H IV 11/19/24 17:45 11/23/24 19:24 2 MLS/HR Fentanyl Citrate 250 ml @ 2.5 mls/hr Q24H IV 11/19/24 17:45 11/24/24 01:42 12.5 MLS/HR Pantoprazole Sodium 40 mg DAILY IV 11/20/24 10:00 11/24/24 09:16 40 MG Amiodarone HCl 400 mg Q12HR PO 11/20/24 10:00 11/24/24 09:17 400 MG Aspirin 81 mg DAILY PO 11/20/24 10:00 11/24/24 09:20 81 MG Atorvastatin Calcium 40 mg HS PO 11/20/24 22:00 11/23/24 21:53 40 MG Diagnostic Test (Pha) 1 strip IQ4HR 11/20/24 04:00 11/25/24 08:00 1 STRIP Insulin Human Regular IQ4HR SC 11/20/24 04:00 11/24/24 19:55 2 UNITS Dextrose 50 ml UD PRN IV 11/20/24 02:15 11/21/24 17:25 50 ML Cefepime HCl 50 ml @ 12.5 mls/hr DAILY IV 11/20/24 14:00 11/24/24 09:16 12.5 MLS/HR Sodium Chloride 10 ml QSHIFT@10,22 IV 11/20/24 22:00 11/24/24 22:00 10 ML Vasopressin 20 units/Sodium Chloride 100 ml @ 9 mls/hr Q11H7M IV 11/21/24 08:00 Dopamine HCl/ Dextrose 250 ml @ 7.284 mls/ hr Q24H IV 11/21/24 08:00 Enteral Nutritional Formula 1,000 ml 30ML/HR GT 11/21/24 09:00 11/22/24 01:15 1,000 ML Clopidogrel Bisulfate 75 mg DAILY PO 11/22/24 10:00 11/24/24 09:16 75 MG Norepinephrine Bitartrate 250 ml @ 1.875 mls/ hr Q24H IV 11/21/24 20:45 11/23/24 00:17 1.875 MLS/HR Epoetin Anthony-epbx 4,000 unit MWF@2100 AR 11/23/24 21:00 11/23/24 21:00 4,000 UNIT Ondansetron HCl 4 mg Q4HPRN PRN IV 11/23/24 12:30 11/25/24 05:09 4 MG Laboratory Results Laboratory Tests 11/25/24 03:00 Chemistry Test 11/25/24 03:00 Albumin 4.1 g/dL (3.2-4.8) Calcium Level 10.8 mg/dL (8.7-10.4) H Total Protein 6.9 g/dL (5.7-8.2) LFT Test 11/25/24 03:00 Alanine Aminotransferase (ALT) 78 U/L (7-40) H Alkaline Phosphatase 90 U/L (46-116) Aspartate Amino Transferase (AST) 31 U/L (13-40) Total Bilirubin 0.6 mg/dL (0.2-1.0) Blood Gas Results Test 11/24/24 15:04 11/24/24 16:46 11/25/24 06:51 Arterial Blood pH 7.437 (7.350-7.450) 7.407 (7.350-7.450) 7.389 (7.350-7.450) FiO2 % 30.0 30.0 28.0 Microbiology Microbiology Date/Time Source Procedure Growth Status 11/20/24 02:10 Nose MRSA Screen - Final Complete 11/19/24 18:11 Blood Blood Culture - Final NO GROWTH AFTER 5 DAYS OF INCUBATION. Complete Labs and/or images reviewed: Labs reviewed by me, Image(s) reviewed by me Assessment/Plan Assessment/Plan 11/25 - extubated yest to bipap. NC thereafter easily. poor swallow . poor voice. this AM he is improved swallow. some confusion, likely icu delirium. VSS, no drips. stable to downgrade to tele w sitter. he keeps tryig to get out of bed. otherwise continue treatment plan as prior. will check tsh and ammonia to r/o other causes. cmp good. abg good. no need cxr today. Neurology #Metabolic encephalopathy #Possible Anoxic brain injury Head CT unremarkable Sedation vacation performed, patient was awake, gag reflex present, placed back on sedation. Cardiovascular #Cardiac arrest status post ROSC x5 #Cardiogenic shock #Cardiac arrhythmia (V-Fib and pulseless V-Tach) - etiology electrolyte alteration vs ischemia #History of CAD status post CABG (2020) #PCIx8 #Chest pain, NSTEMI, rule out type 1 #Dyslipidemia #H/o hypertension #Acute on chronic systolic CHF Consulted cardiology, LHC performed, s/p PCI x1 Continue aspirin and plavix Continue amiodarone po Maintain map above 60, off Levophed Continue hemodialysis Pulmonology #Acute hypoxic respiratory failure on mechanical ventilation #Possible aspiration pneumonia, Gram-positive versus Gram-negative MV: FIO2 30%, PEEP 5, TV 500, RR 20 Cefepime IV cpap trial today failed, repeat tomorrow Nephrology #End-stage renal disease on hemodialysis #Hyperkalemia, improving Nephrology following Endocrinology #Type 2 diabetes SSI mild Gastroenterology #Transaminitis, likely liver shock Monitor Feedings: Start Nepro Hematology and Oncology #Anemia, mild, microcytic, normochromic Monitor Infectious Disease #Possible aspiration pneumonia, Gram-positive versus Gram-negative #Septic shock due to above Continue cefepime IV continue levophed Dermatology x DVT ppx Heparin SC PUD ppx Protonix Drips Levophed Versed Fent Lines picc line placed on 11/20/24 ET tube, 11/19/24 Plan discussed with: Daughter My Orders Orders - YURI POTTS MD Procedure Category Date Status Time Apply Barrier Cream JEN 11/24/24 In Process 12:25 Extubate JEN 11/24/24 In Process 15:45 BIPAP RT 11/24/24 Logged 15:50 Abg W/ Co-Ox RT 11/24/24 Logged 15:00 Abg W/ Co-Ox RT 11/24/24 Logged 16:39 Ammonia LAB 11/25/24 Logged 09:07 Thyroid Stimulating LAB 11/25/24 Logged Hormone 09:07 Date of Service: Nov 25, 2024 Billing Provider: YURI POTTS MD Common Visit Codes: 12062-[id number] CARE 30-74 MIN YURI POTTS MD Nov 25, 2024 09:17
[2024-11-25] MEDS ORDERED: DEXTROSE (50%) 50ML SYRG IV PRN (09:30)
[2024-11-25] MEDS: methylPREDNISolone SOD SUCC 125 MG/2 ML VL IV ONE (09:59)
[2024-11-25] MEDS: ACCU-CHEK COMFORT CURVE STRIP VI SCH (11:34)
[2024-11-25] MEDS: InsuLIN REG 1unit/0.01ml Soln (100units/ml) SC SCH (11:36)
[2024-11-25] MEDS: LORazepam 0.5 MG TAB PO PRN (16:29)
--- NOTE | 2024-11-25 23:28 | DVHPN2 ---
Progress Note - Dictate Date Seen: Nov 25, 2024 Medical Necessity Reason Pt with a Central, PICC or Fol: No The following are medically ne: Central Line Subjective Patient was seen and evaluated in follow up. The patient has been downgraded. Patient stable off Levophed drip. Patient reports having anxiety. Telemetry reviewed. vital signs Vital Sign Date Time Temp Pulse Resp B/P (MAP) Pulse Ox O2 Delivery O2 Flow Rate FiO2 11/25/24 16:40 97.4 79 20 130/61 (84) 97 97.4 11/25/24 15:38 Nasal Cannula* 2 28 Total Intake and Output 11/24/24 11/24/24 11/25/24 15:00 23:00 07:00 Intake Total 89.182 ml 0 ml 0 ml Output Total 0 ml 0 ml Balance 89.182 ml 0 ml 0 ml medications Current Medications Medications Dose Ordered Sig/Gabby Route Start Time Stop Time Status Last Admin Dose Admin Propofol 100 ml @ 2.79 mls/hr Q24H IV 11/19/24 17:45 11/20/24 09:33 16.737 MLS/HR Midazolam HCl 50 ml @ 1 mls/hr Q24H IV 11/19/24 17:45 11/23/24 19:24 2 MLS/HR Fentanyl Citrate 250 ml @ 2.5 mls/hr Q24H IV 11/19/24 17:45 11/24/24 01:42 12.5 MLS/HR Pantoprazole Sodium 40 mg DAILY IV 11/20/24 10:00 11/25/24 09:20 40 MG Amiodarone HCl 400 mg Q12HR PO 11/20/24 10:00 11/25/24 09:20 400 MG Aspirin 81 mg DAILY PO 11/20/24 10:00 11/25/24 09:21 81 MG Atorvastatin Calcium 40 mg HS PO 11/20/24 22:00 11/23/24 21:53 40 MG Cefepime HCl 50 ml @ 12.5 mls/hr DAILY IV 11/20/24 14:00 11/25/24 09:20 12.5 MLS/HR Sodium Chloride 10 ml QSHIFT@10,22 IV 11/20/24 22:00 11/25/24 09:20 10 ML Vasopressin 20 units/Sodium Chloride 100 ml @ 9 mls/hr Q11H7M IV 11/21/24 08:00 Dopamine HCl/ Dextrose 250 ml @ 7.284 mls/ hr Q24H IV 11/21/24 08:00 Enteral Nutritional Formula 1,000 ml 30ML/HR GT 11/21/24 09:00 11/22/24 01:15 1,000 ML Clopidogrel Bisulfate 75 mg DAILY PO 11/22/24 10:00 11/25/24 09:20 75 MG Norepinephrine Bitartrate 250 ml @ 1.875 mls/ hr Q24H IV 11/21/24 20:45 11/23/24 00:17 1.875 MLS/HR Epoetin Anthony-epbx 4,000 unit MWF@2100 SC 11/23/24 21:00 11/23/24 21:00 4,000 UNIT Ondansetron HCl 4 mg Q4HPRN PRN IV 11/23/24 12:30 11/25/24 05:09 4 MG Diagnostic Test (Pha) 1 strip ACHS 11/25/24 11:30 11/25/24 16:37 1 STRIP Insulin Human Regular ACHS SC 11/25/24 11:30 11/25/24 16:42 4 UNITS Dextrose 50 ml UD PRN IV 11/25/24 09:30 Lorazepam 1 mg Q6HP PRN PO 11/25/24 15:15 11/25/24 16:29 1 MG objective GENERAL: Alert and oriented x 3. No acute distress. EYES: PERRL, EOMI. Anicteric. HENT: Moist mucous membranes. LUNGS: Clear to auscultation bilaterally. CARDIOVASCULAR: Regular rate and rhythm. ABDOMEN: Soft, nontender and nondistended. EXTREMITIES: No edema. NEUROLOGIC: No focal neurological deficits. SKIN: Warm, dry. laboratory and microbiology Laboratory Tests 11/25/24 03:00 Test 11/25/24 03:00 Range/Units Serum Glucose 117 H 74-106 mg/dL Problem List Non ST-elevation myocardial infarction s/p PTCA with stent to RCA. Pulseless monomorphic ventricular tachycardia/ventricular fibrillation arrest with ROSC. Acute on chronic decompensated HFrEF, newly diagnosed. Severe coronary artery disease s/p PTCAs including 8 ZAK and single-vessel CABG (on ASA). Pulmonary hypertension. Insulin-dependent diabetes mellitus. Dyslipidemia. ESRD on HD. Acute on chronic anemia. Transaminitis. Assessment/Plan Continued all current supportive medical care. Amiodarone. Aspirin, Lipitor, Plavix. IV antibiotics as ordered. GI prophylactics. Additional plan as per the hospital course. Dietary Evaluation Review Comments: Tube feeding peptide based Vital AF 1,2 @45ml/hr providing 1296+ 441(Propofol) and 81 g Protein. this regimen will support pt's 105% estmated protein needs and 90% estimated energy needs. Expected Outcomes/Goals: off vent and advanced to renal standard diet after passing a SUPERVISOR EDUCATION eval. Plan discussed with: Patient REBA ABERNATHY MD Nov 25, 2024 18:50
--- NOTE | 2024-11-25 23:42 | DVHPN2 ---
Progress Note - Dictate Date Seen: Nov 25, 2024 Medical Necessity Reason Pt with a Central, PICC or Fol: No The following are medically ne: Central Line Subjective Patient seen and examined at bedside. Remains on supplemental oxygen Overnight events reviewed. vital signs Vital Sign Date Time Temp Pulse Resp B/P (MAP) Pulse Ox O2 Delivery O2 Flow Rate FiO2 11/25/24 20:52 97.7 76 20 142/54 (83) 95 97.7 11/25/24 18:00 Nasal Cannula* 2 28 Total Intake and Output 11/24/24 11/24/24 11/25/24 15:00 23:00 07:00 Intake Total 89.182 ml 0 ml 0 ml Output Total 0 ml 0 ml Balance 89.182 ml 0 ml 0 ml medications Current Medications Medications Dose Ordered Sig/Gabby Route Start Time Stop Time Status Last Admin Dose Admin Pantoprazole Sodium 40 mg DAILY IV 11/20/24 10:00 11/25/24 09:20 40 MG Amiodarone HCl 400 mg Q12HR PO 11/20/24 10:00 11/25/24 21:06 400 MG Aspirin 81 mg DAILY PO 11/20/24 10:00 11/25/24 09:21 81 MG Atorvastatin Calcium 40 mg HS PO 11/20/24 22:00 11/25/24 21:06 40 MG Cefepime HCl 50 ml @ 12.5 mls/hr DAILY IV 11/20/24 14:00 11/25/24 09:20 12.5 MLS/HR Sodium Chloride 10 ml QSHIFT@10,22 IV 11/20/24 22:00 11/25/24 21:06 10 ML Dopamine HCl/ Dextrose 250 ml @ 7.284 mls/ hr Q24H IV 11/21/24 08:00 Enteral Nutritional Formula 1,000 ml 30ML/HR GT 11/21/24 09:00 11/22/24 01:15 1,000 ML Clopidogrel Bisulfate 75 mg DAILY PO 11/22/24 10:00 11/25/24 09:20 75 MG Epoetin Anthony-epbx 4,000 unit MWF@2100 SC 11/23/24 21:00 11/23/24 21:00 4,000 UNIT Ondansetron HCl 4 mg Q4HPRN PRN IV 11/23/24 12:30 11/25/24 05:09 4 MG Diagnostic Test (Pha) 1 strip ACHS 11/25/24 11:30 11/25/24 22:00 1 STRIP Insulin Human Regular ACHS SC 11/25/24 11:30 11/25/24 23:11 2 UNITS Dextrose 50 ml UD PRN IV 11/25/24 09:30 Lorazepam 1 mg Q6HP PRN PO 11/25/24 15:15 11/25/24 23:01 1 MG objective Gen.: Patient lying in bed in no apparent distress. On supplemental oxygen. Head: Normocephalic, atraumatic. Eyes: EOMI/PERRLA. Ears: Normal hearing. Normal anatomy. Neck/trachea: Trachea midline, supple. Nose: Normal external anatomy. Mouth: Moist mucous membranes. Chest: Decreased air entry bilaterally. No wheezing or rhonchi. Cardiovascular: Positive S1, positive S2. Regular rate and rhythm. Abdomen: Positive bowel sounds in all 4 quadrants. Soft, non-tender, non- distended. : Deferred. Rectal: Deferred. Skin: Warm, dry. Intact. Extremities: 2+ radial pulses bilaterally. No lower extremity edema. Neuro: Awake, alert, oriented x3. No gross motor or sensory deficits. Cranial nerves II through XII intact. Gait not assessed. laboratory and microbiology Laboratory Tests 11/25/24 03:00 Test 11/25/24 03:00 Range/Units Serum Glucose 117 H 74-106 mg/dL Assessment/Plan Impression: Acute hypoxic respiratory failure Mechanical ventilation, s/p extubation Pulmonary hypertension. Non ST-elevation myocardial infarction, s/p PTCA with stent to RCA. Pulseless monomorphic ventricular tachycardia/ventricular fibrillation arrest with ROSC. Acute on chronic decompensated HFrEF, newly diagnosed. Severe coronary artery disease, s/p PTCAs including 8 ZAK and single-vessel CABG (on ASA). Insulin-dependent diabetes mellitus . ESRD, on HD. Hx of nicotine dependence Anemia. Transaminitis Events: Remains on supplemental oxygen, 2 LPM NC Taper O2 as tolerated Continue antibiotics Amiodarone PO Accu-Cheks, ISS. Protonix for GI prophylaxis Patient is stable for downgrade from the pulmonary standpoint Labs and imaging reviewed. Rest of plan as noted below Plan: s/p extubation Continue supplemental oxygen Titrate to keep O2 sats above 92%. Continue antibiotics Pressors if necessary for hemodynamic support Titrate to keep mean arterial pressure greater than 65 mmHg Continue Plavix, aspirin Cardiology recs appreciated. Monitor renal function. Monitor electrolytes. Supplement as necessary. Monitor ins and outs. DVT prophylaxis. Prognosis: Poor given patient's multiple co-morbidities. Rest of plan per hospitalist and other consultants. Thank you, Dr. Santizo, for allowing me to participate in this patient's care. Further recommendations will depend on the patient's clinical course. Please do not hesitate to contact me if you have any questions or concerns. This medical document was created using an electronic medical record system with [employer] dictation system. Although these documentations are being carefully reviewed, there may still be some phonetic and typographical changes. The errors are purely typographical, due to imperfection on the software program, and do not reflect any compromise in the patient's medical care. Dietary Evaluation Review Comments: Tube feeding peptide based Vital AF 1,2 @45ml/hr providing 1296+ 441(Propofol) and 81 g Protein. this regimen will support pt's 105% estmated protein needs and 90% estimated energy needs. Expected Outcomes/Goals: off vent and advanced to renal standard diet after passing a DYNAMOMETER TUNER eval. Plan discussed with: Patient, Other (RN) LILIA DOMÍNGUEZ MD Nov 25, 2024 23:42
[2024-11-26] VITALS (8 sets, daily range): BP systolic 151–188; BP diastolic 60–85; PULSE 68–78; RESP 16–20; TEMP 97.2–98.5; O2SAT 93–100
[2024-11-26] MEDS: SODIUM CHL 0.9% 1000 ML BAG XX ONE (07:00)
--- NOTE | 2024-11-26 08:03 | ECG ---
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
[2024-11-26 16:22] LABS: Basophils # (auto) 0 10 ^3/uL (0-0.2); Basophils % (auto) 0.4 % (0.0-2.0); Eosinophils # (auto) 0.1 10 ^3/uL (0-0.8); Eosinophils % (auto) 1.3 % (0.0-7.0); Hematocrit 34.2 % (41.0-53.0); Hemoglobin 11.6 g/dL (13.5-17.5); Lymphocytes # (auto) 0.3 10 ^3/uL (0.4-5.4); Lymphocytes % (auto) 3.2 % (10.0-50.0); Mean Corpuscular Hgb Conc. 33.9 g/dL (32.0-36.0); Mean Corpuscular Volume 97.1 fL (80.0-100.0); Monocytes # (auto) 0.9 10 ^3/uL (0-1.3); Monocytes % (auto) 9.8 % (0.0-12.0); Neutrophils # (auto) 8.1 10 ^3/uL (1.6-8.6); Neutrophils % (auto) 85.3 % (37.0-80.0); Platelet Count (auto) 197 10^3/uL (140-450); Red Blood Cells 3.52 10^6/uL (4.5-5.90); Red Cell Distribution Width 14.8 % (11.8-14.3); White Blood Cell 9.4 10^3/uL (4.4-10.8)
[2024-11-26 16:42] LABS: Alkaline Phosphatase 103 U/L (46-116); Anion Gap 12 (5-15); Aspartate Aminotransferase 36 U/L (13-40); BUN/Creatinine Ratio 6.7 (10.0-20.0); Calcium 10.2 mg/dL (8.7-10.4); Carbon Dioxide 30 mmol/L (20-31); Magnesium 2.4 mg/dL (1.6-2.6); Potassium 4.1 mmol/L (3.5-5.1); Total Protein 6.6 g/dL (5.7-8.2)
[2024-11-26 16:43] LABS: Bilirubin, Total 0.6 mg/dL (0.2-1.0)
[2024-11-26 16:53] LABS: Alanine Aminotransferase 67 U/L (7-40); Blood Urea Nitrogen 47 mg/dL (9-23); Chloride 94 mmol/L (98-107); Glucose 168 mg/dL (74-106); Sodium 136 mmol/L (136-145)
--- NOTE | 2024-11-26 18:00 | DVHPN2 ---
Progress Note - Dictate Date Seen: Nov 26, 2024 Medical Necessity Reason Pt with a Central, PICC or Fol: No The following are medically ne: Central Line Subjective No new complaints vital signs Vital Sign Date Time Temp Pulse Resp B/P (MAP) Pulse Ox O2 Delivery O2 Flow Rate FiO2 11/26/24 17:00 97.6 68 18 151/61 (91) 100 97.6 11/26/24 08:00 Room Air* 0 21 Total Intake and Output 11/25/24 11/25/24 11/26/24 15:00 23:00 07:00 Intake Total 50 ml 340 ml 1040 ml Balance 50 ml 340 ml 1040 ml medications Current Medications Medications Dose Ordered Sig/Gabby Route Start Time Stop Time Status Last Admin Dose Admin Pantoprazole Sodium 40 mg DAILY IV 11/20/24 10:00 11/25/24 09:20 40 MG Amiodarone HCl 400 mg Q12HR PO 11/20/24 10:00 11/26/24 11:36 400 MG Aspirin 81 mg DAILY PO 11/20/24 10:00 11/26/24 11:37 81 MG Atorvastatin Calcium 40 mg HS PO 11/20/24 22:00 11/25/24 21:06 40 MG Cefepime HCl 50 ml @ 12.5 mls/hr DAILY IV 11/20/24 14:00 11/26/24 11:38 12.5 MLS/HR Sodium Chloride 10 ml QSHIFT@10,22 IV 11/20/24 22:00 11/26/24 11:37 10 ML Clopidogrel Bisulfate 75 mg DAILY PO 11/22/24 10:00 11/26/24 11:37 75 MG Epoetin Anthony-epbx 4,000 unit MWF@2100 SC 11/23/24 21:00 11/23/24 21:00 4,000 UNIT Ondansetron HCl 4 mg Q4HPRN PRN IV 11/23/24 12:30 11/25/24 05:09 4 MG Diagnostic Test (Pha) 1 strip ACHS 11/25/24 11:30 11/26/24 16:48 1 STRIP Insulin Human Regular ACHS SC 11/25/24 11:30 11/26/24 16:52 3 UNITS Dextrose 50 ml UD PRN IV 11/25/24 09:30 Lorazepam 1 mg Q6HP PRN PO 11/25/24 15:15 11/25/24 23:01 1 MG objective extubated lungs : bilateral good air entry cvs : s1,s2 RRR Abd : soft , BS+ HAND MOLDER : extubated ext : no edema laboratory and microbiology Laboratory Tests 11/26/24 15:49 Test 11/26/24 15:49 Range/Units Serum Glucose 168 H 74-106 mg/dL Problem List End-stage renal disease on hemodialysis s/p cardiac arrest Acute respiratory failure , extubated Extensive coronary history with new cardiac arrest CAD NSTEMI s/p cath RCA stent, EF 35% anemia Assessment/Plan HD on MWF scheduled PT as per primary . DC planning Dietary Evaluation Review Comments: Tube feeding peptide based Vital AF 1,2 @45ml/hr providing 1296+ 441(Propofol) and 81 g Protein. this regimen will support pt's 105% estmated protein needs and 90% estimated energy needs. Expected Outcomes/Goals: off vent and advanced to renal standard diet after passing a WORLD DESIGNER eval. Plan discussed with: Patient MARY PORRAS MD Nov 26, 2024 18:00
--- NOTE | 2024-11-26 20:26 | DVHDSRES ---
Discharge Summary Date of Admission Resident Creating Document: SOLEDAD PONCE RESIDENT Nov 19, 2024 at 20:45 Date of Discharge: Nov 26, 2024 Admitting Diagnosis Cardiac arrest s/p ROSC Labs/Diagnostic Data: Laboratory Results Test 11/26/24 16:43 11/26/24 15:49 11/25/24 11:17 11/25/24 06:51 POC Glucose 165 mg/dl (70-106) White Blood Count 9.4 10^3/uL (4.4-10.8) Red Blood Count 3.52 10^6/uL (4.5-5.90) Hemoglobin 11.6 g/dL (13.5-17.5) Hematocrit 34.2 % (41.0-53.0) Mean Corpuscular Volume 97.1 fL (80.0-100.0) Mean Corpuscular Hemoglobin 33.0 pg (28.0-32.0) Mean Corpuscular Hemoglobin Concent 33.9 g/dL (32.0-36.0) Red Cell Distribution Width 14.8 % (11.8-14.3) Platelet Count 197 10^3/uL (140-450) Mean Platelet Volume 8.9 fL (6.9-10.8) Neutrophils (%) (Auto) 85.3 % (37.0-80.0) Lymphocytes (%) (Auto) 3.2 % (10.0-50.0) Monocytes (%) (Auto) 9.8 % (0.0-12.0) Eosinophils (%) (Auto) 1.3 % (0.0-7.0) Basophils (%) (Auto) 0.4 % (0.0-2.0) Neutrophils # (Auto) 8.1 10 ^3/uL (1.6-8.6) Lymphocytes # (Auto) 0.3 10 ^3/uL (0.4-5.4) Monocytes # (Auto) 0.9 10 ^3/uL (0-1.3) Eosinophils # (Auto) 0.1 10 ^3/uL (0-0.8) Basophils # (Auto) 0 10 ^3/uL (0-0.2) Nucleated Red Blood Cells 0.0 % Sodium Level 136 mmol/L (136-145) Potassium Level 4.1 mmol/L (3.5-5.1) Chloride Level 94 mmol/L (98-107) Carbon Dioxide Level 30 mmol/L (20-31) Anion Gap 12 (5-15) Blood Urea Nitrogen 47 mg/dL (9-23) Creatinine 7.03 mg/dL (0.700-1.30) Glomerular Filtration Rate Calc 9 mL/min (>90) BUN/Creatinine Ratio 6.7 (10.0-20.0) Serum Glucose 168 mg/dL (74-106) Calcium Level 10.2 mg/dL (8.7-10.4) Magnesium Level 2.4 mg/dL (1.6-2.6) Total Bilirubin 0.6 mg/dL (0.2-1.0) Aspartate Amino Transferase (AST) 36 U/L (13-40) Alanine Aminotransferase (ALT) 67 U/L (7-40) Alkaline Phosphatase 103 U/L (46-116) Total Protein 6.6 g/dL (5.7-8.2) Albumin 4.0 g/dL (3.2-4.8) Ammonia < 10 umol/L (11-32) Blood Gas Specimen Type Arterial Blood Gas Sample Site Left radial Blood Gas Patient Temperature 37.0 Arterial Blood Date Drawn [id number] Arterial Blood pH 7.389 (7.350-7.450) Arterial Blood Partial Pressure CO2 36.8 mmHg (35.0-48.0) Arterial Blood Partial Pressure O2 119.8 mmHg (83.0-108.0) Arterial Blood HCO3 21.7 mmol/L (21.0-28.0) Arterial Blood Oxygen Saturation 97.7 % (94.0-98.0) Arterial Blood Base Excess -2.9 mmol/L (-2.0-3.0) Arterial Blood Oxyhemoglobin 96.9 % (94.0-98.0) Arterial Blood Carboxyhemoglobin 0.6 % (0.5-1.5) Arterial Blood Methemoglobin 0.2 % (0.0-1.5) Miguel Test Yes Blood Gas Total Hemoglobin 9.50 g/dL (13.5-17.5) Blood Gas Modality Nasal cannula FiO2 % 28.0 Test 11/25/24 03:00 11/24/24 16:46 11/24/24 15:04 11/24/24 07:11 Thyroid Stimulating Hormone (TSH) 0.51 uIU/mL (0.55-4.78) Blood Gas Pressure Support 7 Blood Gas EPAP 5 Blood Gas IPAP 12 Blood Gas PEEP or CPAP 5.0 Blood Gas Set Respiration Rate 16.0 Blood Gas Tidal Volume 500.0 Test 11/22/24 07:18 11/21/24 17:00 11/21/24 03:20 11/20/24 18:14 Blood Gas Spontaneous Rate 16 Blood Gas Spontaneous Tidal Volume 510 Bl Gas Inspiratory/Expiratory Ratio 1:3.2 Prothrombin Time 11.5 sec (9.3-11.8) Prothrombin Time INR 1.09 (0.9-1.15) Activated Partial Thromboplast Time > 139.0 SEC (24.5-34.5) Hepatitis B Surface Antigen Negative (Negative) Troponin I High Sensitivity 1008 ng/L (</=54) Influenza Type A Antigen Negative (Negative) Influenza Type B Antigen Negative (Negative) SARS-CoV-2 Antigen (Rapid) Negative (NEGATIVE) Test 11/20/24 04:02 11/19/24 19:15 11/19/24 19:01 11/19/24 17:37 Hemoglobin A1c 5.5 % A1C (<5.7) Lactic Acid Level 1.4 mmol/L (0.4-2.0) Phosphorus Level 7.1 mg/dL (2.4-5.1) Triglycerides Level 182 mg/dL (< 150) Cholesterol Level 126 mg/dL (< 200) LDL Cholesterol 39 mg/dL (< 100) HDL Cholesterol 55 mg/dL (40-59) Vitamin B12 Level 821 pg/mL (211-911) Vitamin D 25-Hydroxy 19.8 ng/mL (30.0-100) Creatine Kinase 352 U/L (46-171) Specimen Drawn By Maintenance And Utilities Supervisor ronak vail Blood Gas Critical Value Read Back Yes Blood Gas Notified Whom clinton Jacob Blood Gas Notified Time [id number] Blood Gas Notified By Maintenance And Utilities Supervisor ronak vail Differential Total Cells Counted 100.0 (100) Neutrophils % (Manual) 60 (37.0-80.0) Band Neutrophils % (Manual) 3 Lymphocytes % (Manual) 24 (10.0-50.0) Monocytes % (Manual) 12 (0-12) Eosinophils % (Manual) 1 (0-7) Basophils % (Manual) 0 (0.0-2.0) Metamyelocytes % (manual) 0 Myelocytes % (Manual) 0 Promyelocytes % (Manual) 0 Blast Cells % (Manual) 0 Reactive Lymphocytes 0 Platelet Estimate Adequate Anisocytosis (manual) Slight Macrocytosis Moderate Other Laboratory Tests 11/26/24 15:49 Brief Hx & Hospital Course: This is a 54-year-old male who presents to the ED via EMS due to cardiac arrest. Past medical history: Diabetes, dyslipidemia, hypertension end-stage renal disease on dialysis(since 12 years ago) 3 times a week (Tuesday, Tuesday and Tuesday) last session on Tuesday, coronary artery disease with history of DC status post multiple PCI with a total of eight ZAK placed (last one in 2020), and CABG 2020, erectile dysfunction status postop Surgical history: Av fistula on right arm, CABG in 2020, multiple PCI with a total of eight stents placed last one in 2020 (last coronary angiography was in 2020 as well) Family history: Noncontributory Social history: Lives with family in [place], kelly Babin) is the next of kin. Quit tobacco and illicit drugs use approximately 20 years ago (10 pack- year history). Denies current tobacco, alcohol and other drug abuse Allergies: Amlodipine Home medication: does not recall. Knows he is on aspirin atorvastatin Information was gathered from EMR and . Per EMS report, patient experienced a witnessed arrest at home, family reported patient complaint of chest pain before arrest, and he was also having worsening chest pain for the past month which was partially relieved by nitroglycerin. He got home frmo work feeling tired, and passed out.He was unresponsive, EMS was called. Estimated downtime of less than 10 minutes at home. During pre-hospital resuscitation EMS administered three doses of epi, one dose of permanent, one dose of calcium, achieving ROSC twice in route. During period in ER patient coded twice, with evidence of ventricular fibrillation, delivered one shock (200 joules) and obtaining ROSC. Per ER nurse at bedside patient's last dialysis session was on Tuesday, he did not obtain dialysis session today. Patient seen and examined at bedside. Patient currently under mechanical ventilation assistance. On propofol and Versed, on vasopressor levophed. He received hemodialysis, potassium back to normal. He's pupils were barely reactive and myotic, we came down on sedation. Patient had a head CT which was unremarkable. Sedation vacation was performed on patient woke up, gag reflex was present. Patient was seen by tap and die maker technician which perform a left heart catheterization, placed one stent. Patient continued to be on broad-spectrum antibiotics due to likelihood of aspiration pneumonia, we went hemoglobin ventilator and performed CPAP trials, patient was extubated on November 24, he tolerated well the CPAP was downgraded to telemetry. On my assessment, patient was seen and examined at bedside. Currently states feeling well, denies any significant shortness of breath, chest pain, abdominal pain, dysuria, nausea, vomiting, diarrhea, constipation, dizziness, lightheadedness. Currently tolerating diet. Physical therapy is going to work with him. Patient is noted to be A&O x2, he has a on fluctuations in mentation per patient's . Physical examination as below: General: Awake, A&Ox2, comfortable appearing, in no acute distress. HEENT: Head is normocephalic and atraumatic. Pupils are equal, round, and reactive to light. Neck: Supple with no cervical lymphadenopathy. Heart: Regular rate without murmur, rub, or gallop. Lungs: scattered crackles Abdomen: No external sign of injury. Bowel sounds are present. Abdomen is soft, nontender. No rebound, no guarding, no rigidity. There are no palpable masses. There is no flank pain on exam. Extremities: Strong peripheral pulses. There is no clubbing, no cyanosis, and no edema. Skin: No rash. Neurologic: Cranial nerves II-XII intact without motor, sensory, or cerebellar deficit, no asterixis. Patient will be transferred to [place], continue home medications as prescribed. Follow-up with PCP in 1-2 weeks after discharge. Patient and verbalized understanding and agree with the DC plan, we spent over 30 minutes explaining the plan. Case was discussed with Dr. Garner time spent in discharge planning 41 mins Consults/Reason for consult Nephrology was consulted due to ESRD Cardiology was consulted due to cardiac arrest. Operations or Procedures [address] [address] Ph: [phone] DIAGNOSTIC IMAGING Diagnostic Imaging Report : [id number] Signed PATIENT: NISREEN LEE ACCT: [id number] UNIT: [id number] : 1970 LOC: ICU SUBLETTE ROOM / BED: [address] [place] [address] AGE / SEX: 54 / M ADM STATUS: ADM IN SERVICE 44 ORDERING PHYSICIAN: JESUSITA STANLEY RESIDENT PROCEDURE(s): ECIDC - ECHO 2D MODE CARDIAC DOP REASON: CPR ORDER NUMBER(s): [id number], ACCESSION NUMBER(s): [id number] APPROVED REPORT EXAM: Two-dimensional and M-mode echocardiogram with Doppler and color Doppler. Blood Pressure: 79/44 mmHg INDICATION CPR RISK FACTORS Height: 5'7", Weight: 171 DIMENSIONS LVDd 5.3 (3.8-5.7cm) LA (2D) 4.4 (1.9-4.0cm) Aortic Root 3.1 (2.0- 3.7cm) LVDs 4.3 (2.5-4.0cm) LA (MM) (1.9-4.0cm) Aortic Cusp Exc 1.7 (1.5- 2.0cm) EF (%) 40.0 (55-70%) Rt. Atrium 4.4 (1.9-4.0cm) Asc. Aorta 2.7 cm IVSd 1.0 (0.7-1.1cm) RV (D) 5.0 (1.8-2.4cm) PWd 1.0 (0.7-1.1cm) Mitral Valve Mitral Mitral Stenosis E wave 0.65m/s MV Mean GR. mmHg A wave 0.65m/s MV Peak GR. mmHg E/A ratio 1.0 2D MVA cm2 DECEL Time 209ms PRESS 1/2 Time ms Aortic Valve Aortic Valve Aortic Stenosis V1 0.79m/s AO Mean GR. 5mmHg V2 1.49m/s AO Peak GR. 9mmHg LVOT Diameter 2.3 (1.8-2.4cm) Doppler ALBERTO 2.20cm2 Pulmonic Valve V2 0.96m/s Tricuspid Valve TR Velocity 3.50m/s RVSP 57mmHg Conclusion Sinus rhythm. Concentric LVH with left atrial enlargement. RV enlargement. Dilation of the sinuses of Valsalva. Valves appear to be structurally normal. Mild mitral annular calcification. Mild sclerosis of the aortic valve. Left ventricular function is diminished. EF is approximately 35% with anterior apical hypokinesis. Underlying global hypokinesis. Interventricular septal doming consistent with pulmonary hypertension. No pericardial effusion masses or vegetations. Moderate aortic insufficiency with moderate tricuspid regurgitation with pulmonary hypertension. RVSP of 60 mmHg. SIGNED BY: RAJENDRA ANGULO Sr., MD SIGNED DATE/TIME: 11/21/242021 CC: [place] [address] Ph: [phone] DIAGNOSTIC IMAGING Diagnostic Imaging Report : [id number] Signed PATIENT: NISREEN LEE ACCT: [id number] UNIT: [id number] : 1970 LOC: ICU SUBLETTE ROOM / BED: [address] [place] [address] AGE / SEX: 54 / M ADM STATUS: ADM IN SERVICE 040 ORDERING PHYSICIAN: SOLEDAD PONCE PROCEDURE(s): CXRP - CHEST PORTABLE REASON: sob ORDER NUMBER(s): [id number], ACCESSION NUMBER(s): [id number] CHEST RADIOGRAPH Indication: sob Technique: Single frontal view of the chest was obtained Comparison: XY CHEST PORTABLE on DOS: 11/23/24, XY CHEST PORTABLE on DOS: 11/23/24, XY CHEST PORTABLE on DOS: 11/22/24 IMPRESSION: Heart appears normal in size. Median sternotomy wires. Enteric tube, endotracheal tube appear satisfactory and stable in position. Left PICC line tip in the region of the cavoatrial junction. No sizable effusion, focal airspace opacity, or pneumothorax. No significant interval change. ATED BY: JENNI SÁNCHEZ MD DICTATED DATE/TIME: 11/24/24606 SIGNED BY: JENNI SÁNCHEZ MD SIGNED DATE/TIME: 11/24/24606 CC: [place] [address] Ph: [phone] DIAGNOSTIC IMAGING Diagnostic Imaging Report : [id number] Signed PATIENT: NISREEN LEE ACCT: [id number] UNIT: [id number] : 1970 LOC: ICU SUBLETTE ROOM / BED: 0109-CC / A AGE / SEX: 54 / M ADM STATUS: ADM IN SERVICE 1235 ORDERING PHYSICIAN: SOLEDAD PONCE PROCEDURE(s): USGUIVASAC - US Guided Vascular Access REASON: PICC LINE PLACEMENT ORDER NUMBER(s): [id number], ACCESSION NUMBER(s): [id number] Exam: US US GUIDED VASCULAR ACCESS Clinical History: PICC LINE PLACEMENT Comparison: None Findings: Targeted sonographic evaluation of the upper arm vein was obtained utilizing grayscale and color Doppler imaging. IMPRESSION: Sonographic assistance for central line placement. Please refer to procedural report for detailed findings. ATED BY: ENRIQUE SURESH MD DICTATED DATE/TIME: 11/21/24503 SIGNED BY: ENRIQUE SURESH MD SIGNED DATE/TIME: 11/21/24503 CC: [place] [address] Ph: [phone] DIAGNOSTIC IMAGING Diagnostic Imaging Report : [id number] Signed PATIENT: NISREEN LEE ACCT: [id number] UNIT: [id number] : 1970 LOC: OVERFLOW ROOM / BED: 1009-SOFI / A AGE / SEX: 54 / M ADM STATUS: ADM IN SERVICE 2150 ORDERING PHYSICIAN: JESUSITA STANLEY PROCEDURE(s): HWOCT - HEAD WITHOUT CONTRAST REASON: CPR ORDER NUMBER(s): [id number], ACCESSION NUMBER(s): [id number] CT HEAD WITHOUT CONTRAST INDICATION: CPR COMPARISON: None TECHNIQUE: CT of the head without intravenous contrast. RADIATION DOSE: CTDIvol: 59.52 mGy, DLP: 1072.99 mGy*cm FINDINGS: There is no evidence of intracranial hemorrhage, infarct, extra-axial collection, mass effect, midline shift, herniation or hydrocephalus. The ventricles, sulci and cisterns are normal. Extensive vascular calcifications noted presumably related to DM/CKD. Considerable mucosal thickening with complete opacification of left maxillary sinus, mucosal thickening in left ethmoid sinus. Otherwise unremarkable. Mastoid air cells and middle ear cavities are clear. Soft tissues and osseous structures are unremarkable. IMPRESSION: No acute intracranial abnormality identified. ATED BY: ROSA SANTOYO MD DICTATED DATE/TIME: 11/20/2437 SIGNED BY: ROSA SANTOYO MD SIGNED DATE/TIME: 11/20/2437 CC: Patient: NISREEN LEE Acct: [id number] : 1970 Loc: [facility] Age/Sex: 54/M Room: [address] [place] [address] / Bed: A Attending Phy: JESUSITA STANLEY RESIDENT Operative Report - 2 Report Details Date: 11/21/24 Preop Diagnosis: Coronary artery disease Postop Diagnosis: Severe coronary artery disease. Cardiomyopathy. Surgeon: Rajendra Angulo MD Anesthesiologist: Conscious sedation. Patient on a ventilator. Anesthesia: Mac, Local Implant: Don Smyth drug-eluting stent Consent: The patient was informed of the risks and benefits of the procedure. These include but are not limited to complications of anesthesia, postoperative infection, incomplete relief of symptoms, recurrence of symptoms, damage to blood vessels, nerves and tendons, deep venous thrombosis, pulmonary embolism and possible need for repeat surgery in the future. Complications: No complications Estimated Blood Loss: 5 cc Findings: Significant CAD. Cardiomyopathy Indications for Surgery: Non ST-elevation DC. Name of Procedure Performed Left heart catheterization bilateral cine coronary angiography. Left ventriculography. Visualization of saphenous venous graft and left internal mammary artery. PTCA and stenting of the RCA. Procedure Details Procedure Details: Prior local anesthesia with 2% lidocaine to the right wrist. A six Monegasque sheath was advanced into the right groin. Six Monegasque Filiberto catheters used to cannulate both right and left coronary ostia. A six Monegasque pigtail catheter was used for ventriculography. A right coronary catheter was used for saphenous grafts evaluation. A left internal mammary artery catheter was used for evaluation left internal mammary artery. An AL1 one was used for angioplasty of the RCA. Hemodynamics: Aortic blood pressure was 110/70. End-diastolic pressure was 20. There was no gradient across the aortic valve on pullback. Coronary anatomy: The RCA is a large vessel it is normal in its proximal mid section. The distal segment prior to the origin of the PDA has a 95% stenosis in his calcified and hazy. The PDA and posterolateral branches are large and normal. Left main is occluded proximally. Left internal mammary artery is anastomosed to the mid LAD. There was no retrograde flow to the proximal LAD. The distal flow is significant. The LAD itself is a smaller artery distally with good flow however. Diagonals are not noted. Retrograde flow into the proximal and mid LAD he is not present. The circumflex is occluded proximally. The saphenous graft to the obtuse marginal branch is patent. Retrograde filling of an inferior marginal noted from retrograde filling from the superior marginal. Ventriculography in the HARDWICK projection shows an EF of 30%. Anterior septal hypokinesis. Generalized hypokinesis the left ventricle. Angioplasty was performed for version AL1 guide was in place followed by a choice PT wire placed across the area of stenosis. We then placed a Sapphire balloon to formed channels since a two five balloon would not cross. We Finally placed a 2.5 x 12 mm balloon through the original lesion and were able to pre dilate. We placed a 3-0 by 15 mm stent into the distal RCA. There was subsequent excellent antegrade flow. No dissection or thrombus noted. Impression: Elevated left ventricular end-diastolic pressure at rest with decreased left ventricular ejection fraction. Three-vessel coronary artery disease as noted above. Significant stenosis of the distal RCA. Successful stenting of the distal RCA. Recommendations: Medical therapy is warranted. Continue with the risk factor modification. Condition Guarded Disposition 2 Still a Patient Date of Service: Nov 21, 2024 Billing Provider: RAJENDRA ANGULO Sr., MD Cardiology Common Codes: 20678-PDCEOKG INP/OBS CARE (High) Cardiology Procedure Codes: 30806-VAS NONCORN ART BYPASS GTF, 86806-TDGPLG VESSEL W/I VASC FAM, 47805 -PTCA W/STENT PLACEMENT, 83838-QQVO FOR STEMI W/STENT, 08678-YJMG ADD COR ART/BRNCH/GRFT RAJENDRA ANGULO Sr., MD Nov 21, 2024 16:54 DICTATED BY:RAJENDRA ANGULO Sr., MD DICTATED DATE/TIME:11/21/241653 ELECTRONICALLY SIGNED BY:RAJENDRA ANGULO Sr., MD 11/21/241653 ELECTRONICALLY CO-SIGNED BY: Condition at Discharge: Guarded Final Diagnosis/Problems List #Metabolic encephalopathy #Possible Anoxic brain injury #Cardiac arrest status post ROSC x5 #Cardiogenic shock #Cardiac arrhythmia (V-Fib and pulseless V-Tach) - etiology electrolyte alteration vs ischemia #History of CAD status post CABG (2020) #PCIx8 #Chest pain, NSTEMI, rule out type 1 #Dyslipidemia #H/o hypertension #Acute on chronic systolic CHF #Acute hypoxic respiratory failure on mechanical ventilation #Possible aspiration pneumonia, Gram-positive versus Gram-negative #End-stage renal disease on hemodialysis #Hyperkalemia, improving #Type 2 diabetes #Transaminitis, likely liver shock #Anemia, mild, microcytic, normochromic #Possible aspiration pneumonia, Gram-positive versus Gram-negative #Septic shock due to above Discharge Disposition: Acute Care Facility Discharge Instruct/Medications Diet: Renal Activity: No Restrictions, As Tolerated Follow Up/Referral: fu with pcp Medications: continue meds as prescribed in spreadsheet Discharge Statement: "Patient was advised to return to the ER or call 911 if any headaches, dizziness, shortness of breath, chest pain, abdominal pain, bleeding, fevers, or worsening of medical condition. Patient was counseled about treatment plan, medications, possible side effects, patientverbalized understanding. All questions were answered to the best of my ability. This discharge took greater then 30 minutes in planning, reviewing documentation, counseling the patient, and discussing with other team members." ASSESSMENT ASSESSMENT Assessment Cardiac arrest s/p ROSC, ESRD on HD Date of Service: Nov 26, 2024 Billing Provider: WM GARNER MD Common Visit Codes: 19970-MEI/OBS DISCH DAY >30min Secondary Visit Codes: 34735-NVWVMYIU CARE PLAN 30 MINUTES SOLEDAD PONCE RESIDENT Nov 26, 2024 20:26 WM GARNER MD Nov 27, 2024 14:45
[2024-11-26] MEDS: MORPHINE SULFATE INJ 2 MG/ml SYRG IV ONE (23:38)
[2024-11-27] VITALS (8 sets, daily range): BP systolic 111–156; BP diastolic 54–86; PULSE 62–76; RESP 15–18; TEMP 97.4–98.3; O2SAT 94–100
--- NOTE | 2024-11-27 07:24 | DVHPNRES ---
Progress Note Date Seen: Nov 27, 2024 Resident Creating Document: SOLEDAD PONCE RESIDENT Medical Necessity Reason Pt with a Central, PICC or Fol: No Subjective Review of Systems On my assessment, patient was seen and examined at bedside. Currently states feeling well, denies any significant shortness of breath, chest pain, abdominal pain, dysuria, nausea, vomiting, diarrhea, constipation, dizziness, lightheadedness. Currently tolerating diet. Physical therapy is going to work with him. Patient is noted to be A&O x3. Patient will be DC to SNF for PT continue medications as prescribed in spreadsheet. Follow-up with PCP in 1-2 weeks after discharge. Patient and verbalized understanding and agree with the DC plan, we spent 37 minutes explaining the plan. Objective vital signs Vital Sign Date Time Temp Pulse Resp B/P (MAP) Pulse Ox O2 Delivery O2 Flow Rate FiO2 11/27/24 05:00 97.7 70 18 154/86 (108) 100 97.7 11/26/24 20:00 Nasal Cannula* 2 28 Total Intake and Output 11/26/24 11/26/24 11/27/24 15:00 23:00 07:00 Intake Total 850 ml 150 ml Balance 850 ml 150 ml medications Current Medications Medications Dose Ordered Sig/Gabby Route Start Time Stop Time Status Last Admin Dose Admin Pantoprazole Sodium 40 mg DAILY IV 11/20/24 10:00 11/25/24 09:20 40 MG Amiodarone HCl 400 mg Q12HR PO 11/20/24 10:00 11/26/24 21:12 400 MG Aspirin 81 mg DAILY PO 11/20/24 10:00 11/26/24 11:37 81 MG Atorvastatin Calcium 40 mg HS PO 11/20/24 22:00 11/26/24 21:02 40 MG Cefepime HCl 50 ml @ 12.5 mls/hr DAILY IV 11/20/24 14:00 11/26/24 11:38 12.5 MLS/HR Sodium Chloride 10 ml QSHIFT@10,22 IV 11/20/24 22:00 11/26/24 21:02 10 ML Clopidogrel Bisulfate 75 mg DAILY PO 11/22/24 10:00 11/26/24 11:37 75 MG Epoetin Anthony-epbx 4,000 unit MWF@2100 DC 11/23/24 21:00 11/23/24 21:00 4,000 UNIT Ondansetron HCl 4 mg Q4HPRN PRN IV 11/23/24 12:30 11/25/24 05:09 4 MG Diagnostic Test (Pha) 1 strip ACHS 11/25/24 11:30 11/27/24 06:00 1 STRIP Insulin Human Regular ACHS SC 11/25/24 11:30 11/26/24 16:52 3 UNITS Dextrose 50 ml UD PRN IV 11/25/24 09:30 Lorazepam 1 mg Q6HP PRN PO 11/25/24 15:15 11/26/24 21:12 1 MG Examination Physical examination as below: General: Awake, A&Ox3, comfortable appearing, in no acute distress. HEENT: Head is normocephalic and atraumatic. Pupils are equal, round, and reactive to light. Neck: Supple with no cervical lymphadenopathy. Heart: Regular rate without murmur, rub, or gallop. Lungs: scattered crackles Abdomen: No external sign of injury. Bowel sounds are present. Abdomen is soft, nontender. No rebound, no guarding, no rigidity. There are no palpable masses. There is no flank pain on exam. Extremities: Strong peripheral pulses. There is no clubbing, no cyanosis, and no edema. Skin: No rash. Neurologic: Cranial nerves II-XII intact without motor, sensory, or cerebellar deficit, no asterixis. laboratory and microbiology Laboratory Tests 11/26/24 15:49 Test 11/26/24 15:49 Range/Units Serum Glucose 168 H 74-106 mg/dL Microbiology Date/Time Source Procedure Growth Status 11/20/24 02:10 Nose MRSA Screen - Final Complete 11/19/24 18:11 Blood Blood Culture - Final NO GROWTH AFTER 5 DAYS OF INCUBATION. Complete Labs and/or images reviewed: Labs reviewed by me, Image(s) reviewed by me Problem List/Assessment/Plan Problem List/Assessment/Plan Neurology #Metabolic encephalopathy #Possible Anoxic brain injury Head CT unremarkable Cardiovascular #Cardiac arrest status post ROSC x5 #Cardiogenic shock #Cardiac arrhythmia (V-Fib and pulseless V-Tach) - etiology electrolyte alteration vs ischemia #History of CAD status post CABG (2020) #PCIx8 #Chest pain, NSTEMI, rule out type 1 #Dyslipidemia #H/o hypertension #Acute on chronic systolic CHF Consulted cardiology, C performed, s/p PCI x1 Continue aspirin and plavix Continue amiodarone po Maintain map above 60, off Levophed Continue hemodialysis Pulmonology #Acute hypoxic respiratory failure s/p mechanical ventilation, extubated #Possible aspiration pneumonia, Gram-positive versus Gram-negative MV: FIO2 30%, PEEP 5, TV 500, RR 20 Rocephin IV extubated on 11/24/24 Nephrology #End-stage renal disease on hemodialysis #Hyperkalemia, improving Nephrology following Endocrinology #Type 2 diabetes SSI mild Gastroenterology #Transaminitis, likely liver shock Monitor Nutrition: renal diet Hematology and Oncology #Anemia, mild, microcytic, normochromic Monitor Infectious Disease #Possible aspiration pneumonia, Gram-positive versus Gram-negative #Septic shock due to above Continue cefepime IV continue levophed Dermatology x DVT ppx Heparin SC PUD ppx Protonix Drips x Lines picc line placed on 11/20/24 ET tube, 11/19/24, extubated on 11/24/24 Critical care time spent outside of procedures: 45 mins Goals of care we discussed with spouse for over 30 minutes. FULL CODE. Patient will be DC to SNF for PT continue medications as prescribed in spreadsheet. Follow-up with PCP in 1-2 weeks after discharge. Patient and verbalized understanding and agree with the DC plan, we spent 37 minutes explaining the plan. Case was discussed with Dr. Evangelista Plan discussed with: Patient, Spouse, Other (RN) My Orders My Orders Orders - SOLEDAD PONCE RESIDENT Procedure Category Date Status Time Discharge DISCHARGE 11/26/24 Transmitted 15:47 * Sanitation Laborer CONS 11/26/24 Transmitted Consult Renal DIET 11/26/24 Transmitted Standard(2gna,3gk,Lopho) Dinner Pt Request For Service PT 11/26/24 Logged 16:32 Complete Blood Count LAB 11/27/24 Logged 04:00 Comprehensive LAB 11/27/24 Logged Metabolic Panel 04:00 Magnesium LAB 11/27/24 Logged 04:00 Dietary Evaluation Review Comments: Tube feeding peptide based Vital AF 1,2 @45ml/hr providing 1296+ 441(Propofol) and 81 g Protein. this regimen will support pt's 105% estmated protein needs and 90% estimated energy needs. Expected Outcomes/Goals: off vent and advanced to renal standard diet after passing a SENIOR TALENT ACQUISITION SPECIALIST eval. Date of Service: Nov 27, 2024 Billing Provider: WM EVANGELISTA MD Common Visit Codes: [id number] INP/OBS CARE(HIGH) SOLEDAD PONCE RESIDENT Nov 27, 2024 07:23 WM EVANGELISTA MD Nov 28, 2024 14:13
[2024-11-27 07:48] LABS: Basophils # (auto) 0.1 10 ^3/uL (0-0.2); Basophils % (auto) 0.5 % (0.0-2.0); Eosinophils # (auto) 0.3 10 ^3/uL (0-0.8); Eosinophils % (auto) 3.4 % (0.0-7.0); Hematocrit 34.8 % (41.0-53.0); Hemoglobin 11.6 g/dL (13.5-17.5); Lymphocytes # (auto) 0.6 10 ^3/uL (0.4-5.4); Lymphocytes % (auto) 6.1 % (10.0-50.0); Mean Corpuscular Hemoglobin 33.2 pg (28.0-32.0); Mean Corpuscular Hgb Conc. 33.4 g/dL (32.0-36.0); Mean Corpuscular Volume 99.5 fL (80.0-100.0); Monocytes # (auto) 1.1 10 ^3/uL (0-1.3); Monocytes % (auto) 11.3 % (0.0-12.0); Neutrophils # (auto) 7.9 10 ^3/uL (1.6-8.6); Neutrophils % (auto) 78.7 % (37.0-80.0); Nucleated Red Blood Cells % 0.1 %; Platelet Count (auto) 205 10^3/uL (140-450); Red Cell Distribution Width 14.9 % (11.8-14.3); White Blood Cell 10.1 10^3/uL (4.4-10.8)
[2024-11-27 08:12] LABS: Alkaline Phosphatase 99 U/L (46-116); Anion Gap 15 (5-15); BUN/Creatinine Ratio 6.3 (10.0-20.0); Carbon Dioxide 27 mmol/L (20-31); Glucose 86 mg/dL (74-106); Magnesium 2.6 mg/dL (1.6-2.6); Potassium 4.2 mmol/L (3.5-5.1); Total Protein 7.2 g/dL (5.7-8.2)
[2024-11-27 08:13] LABS: Albumin 4.2 g/dL (3.2-4.8); Aspartate Aminotransferase 29 U/L (13-40)
[2024-11-27 08:14] LABS: Bilirubin, Total 0.6 mg/dL (0.2-1.0)
[2024-11-27 08:17] LABS: Alanine Aminotransferase 61 U/L (7-40); Blood Urea Nitrogen 52 mg/dL (9-23); Calcium 10.5 mg/dL (8.7-10.4); Chloride 94 mmol/L (98-107); Sodium 136 mmol/L (136-145)
[2024-11-27] MEDS: cefTRIAXone 1GM/50ML D5W 50 ML IV SCH (08:48)
[2024-11-27] MEDS: LOSARTAN POTASSIUM 50 MG TAB PO SCH (08:49)
[2024-11-27] MEDS: CARVEDILOL 12.5 MG TAB PO SCH (08:50)
[2024-11-27] MEDS: HYDROcodone-ACET 5/325MG TAB PO PRN (10:02)
--- NOTE | 2024-11-27 12:23 | DVHPN2 ---
Progress Note - Dictate Date Seen: Nov 27, 2024 Medical Necessity Reason Pt with a Central, PICC or Fol: No The following are medically ne: Central Line Subjective No new complaints vital signs Vital Sign Date Time Temp Pulse Resp B/P (MAP) Pulse Ox O2 Delivery O2 Flow Rate FiO2 11/27/24 09:01 98.0 65 15 149/75 (99) 99 98.0 11/27/24 08:00 Room Air* 0 N/A Nasal Cannula* Total Intake and Output 11/26/24 11/26/24 11/27/24 15:00 23:00 07:00 Intake Total 850 ml 150 ml Balance 850 ml 150 ml medications Current Medications Medications Dose Ordered Sig/Gabby Route Start Time Stop Time Status Last Admin Dose Admin Pantoprazole Sodium 40 mg DAILY IV 11/20/24 10:00 11/27/24 08:48 40 MG Amiodarone HCl 400 mg Q12HR PO 11/20/24 10:00 11/27/24 08:49 400 MG Aspirin 81 mg DAILY PO 11/20/24 10:00 11/27/24 08:51 81 MG Atorvastatin Calcium 40 mg HS PO 11/20/24 22:00 11/26/24 21:02 40 MG Sodium Chloride 10 ml QSHIFT@ IV 11/20/24 22:00 11/27/24 10:02 10 ML Clopidogrel Bisulfate 75 mg DAILY PO 11/22/24 10:00 11/27/24 08:49 75 MG Epoetin Anthony-epbx 4,000 unit MWF@2100 SC 11/23/24 21:00 11/23/24 21:00 4,000 UNIT Ondansetron HCl 4 mg Q4HPRN PRN IV 11/23/24 12:30 11/25/24 05:09 4 MG Diagnostic Test (Pha) 1 strip ACHS 11/25/24 11:30 11/27/24 12:06 1 STRIP Insulin Human Regular ACHS SC 11/25/24 11:30 11/26/24 16:52 3 UNITS Dextrose 50 ml UD PRN IV 11/25/24 09:30 Lorazepam 1 mg Q6HP PRN PO 11/25/24 15:15 11/26/24 21:12 1 MG Ceftriaxone Sodium 50 ml @ 100 mls/hr DAILY@09 IV 11/27/24 09:00 11/27/24 08:48 100 MLS/HR Carvedilol 12.5 mg Q12HR PO 11/27/24 10:00 11/27/24 08:50 12.5 MG Losartan Potassium 50 mg DAILY PO 11/27/24 10:00 11/27/24 08:49 50 MG Acetaminophen/ Hydrocodone Bitart 1 tab Q4HPRN PRN PO 11/27/24 09:15 11/27/24 10:02 1 TAB objective extubated lungs : bilateral good air entry cvs : s1,s2 RRR Abd : soft , BS+ SUPPORTIVE EMPLOYMENT CASE MANAGER : extubated ext : no edema laboratory and microbiology Laboratory Tests 11/27/24 06:58 Test 11/27/24 06:58 Range/Units Serum Glucose 86 74-106 mg/dL Problem List End-stage renal disease on hemodialysis s/p cardiac arrest Acute respiratory failure , extubated Extensive coronary history with new cardiac arrest CAD NSTEMI s/p cath RCA stent, EF 35% anemia Assessment/Plan HD on MWF scheduled PT as per primary . DC planning Dietary Evaluation Review Comments: Tube feeding peptide based Vital AF 1,2 @45ml/hr providing 1296+ 441(Propofol) and 81 g Protein. this regimen will support pt's 105% estmated protein needs and 90% estimated energy needs. Expected Outcomes/Goals: off vent and advanced to renal standard diet after passing a TESTING TECH eval. Plan discussed with: Patient MARY PORRAS MD Nov 27, 2024 12:23
[2024-11-27] MEDS: AMIODARONE HCL 200 MG TAB PO SCH (21:14)
[2024-11-28 01:00] VITALS: BP 145/67; PULSE 65; RESP 20; TEMP 97.4; O2SAT 95
[2024-11-28 05:00] VITALS: BP 105/47; PULSE 64; RESP 20; TEMP 97.4; O2SAT 95
[2024-11-28 06:23] LABS: Anion Gap 15 (5-15); Carbon Dioxide 26 mmol/L (20-31); Potassium 4.4 mmol/L (3.5-5.1)
[2024-11-28 06:24] LABS: Calcium 9.8 mg/dL (8.7-10.4)
[2024-11-28 06:25] LABS: Chloride 93 mmol/L (98-107); Sodium 134 mmol/L (136-145)
[2024-11-28 06:28] LABS: Glucose 82 mg/dL (74-106)
[2024-11-28 06:29] LABS: BUN/Creatinine Ratio 7.1 (10.0-20.0)
[2024-11-28 06:36] LABS: Blood Urea Nitrogen 68 mg/dL (9-23)
[2024-11-28] MEDS ORDERED: SODIUM CHL 0.9% 1000 ML BAG XX ONE (07:00)
[2024-11-28 09:00] VITALS: BP 152/70; PULSE 69; RESP 18; TEMP 97.5; O2SAT 95
--- NOTE | 2024-11-28 11:40 | DVHPN2 ---
Progress Note - Dictate Date Seen: Nov 28, 2024 Medical Necessity Reason Pt with a Central, PICC or Fol: No The following are medically ne: Central Line Subjective No new complaints vital signs Vital Sign Date Time Temp Pulse Resp B/P (MAP) Pulse Ox O2 Delivery O2 Flow Rate FiO2 11/28/24 08:00 Nasal Cannula* 2 28 11/28/24 05:00 97.4 64 20 105/47 (66) 95 97.4 Total Intake and Output 11/27/24 11/27/24 11/28/24 15:00 23:00 07:00 Intake Total 50 ml 750 ml Output Total 0 ml Balance 50 ml 0 ml 750 ml medications Current Medications Medications Dose Ordered Sig/Gabby Route Start Time Stop Time Status Last Admin Dose Admin Pantoprazole Sodium 40 mg DAILY IV 11/20/24 10:00 11/27/24 08:48 40 MG Aspirin 81 mg DAILY PO 11/20/24 10:00 11/27/24 08:51 81 MG Atorvastatin Calcium 40 mg HS PO 11/20/24 22:00 11/27/24 21:14 40 MG Sodium Chloride 10 ml QSHIFT@ IV 11/20/24 22:00 11/27/24 21:15 10 ML Clopidogrel Bisulfate 75 mg DAILY PO 11/22/24 10:00 11/27/24 08:49 75 MG Epoetin Anthony-epbx 4,000 unit MWF@2100 SC 11/23/24 21:00 11/23/24 21:00 4,000 UNIT Ondansetron HCl 4 mg Q4HPRN PRN IV 11/23/24 12:30 11/25/24 05:09 4 MG Diagnostic Test (Pha) 1 strip ACHS 11/25/24 11:30 11/28/24 06:23 1 STRIP Insulin Human Regular ACHS SC 11/25/24 11:30 11/27/24 17:27 2 UNITS Dextrose 50 ml UD PRN IV 11/25/24 09:30 Lorazepam 1 mg Q6HP PRN PO 11/25/24 15:15 11/26/24 21:12 1 MG Ceftriaxone Sodium 50 ml @ 100 mls/hr DAILY@09 IV 11/27/24 09:00 11/27/24 08:48 100 MLS/HR Carvedilol 12.5 mg Q12HR PO 11/27/24 10:00 11/27/24 21:14 12.5 MG Losartan Potassium 50 mg DAILY PO 11/27/24 10:00 11/27/24 08:49 50 MG Acetaminophen/ Hydrocodone Bitart 1 tab Q4HPRN PRN PO 11/27/24 09:15 11/27/24 21:13 1 TAB Amiodarone HCl 200 mg Q12HR PO 11/27/24 22:00 11/27/24 21:14 200 MG objective extubated lungs : bilateral good air entry cvs : s1,s2 RRR Abd : soft , BS+ GAME TESTER : extubated ext : no edema laboratory and microbiology Laboratory Tests 11/28/24 04:23 11/27/24 06:58 Test 11/28/24 04:23 Range/Units Serum Glucose 82 74-106 mg/dL Problem List End-stage renal disease on hemodialysis s/p cardiac arrest Acute respiratory failure , extubated Extensive coronary history with new cardiac arrest CAD NSTEMI s/p cath RCA stent, EF 35% anemia Assessment/Plan HD on MWF scheduled PT as per primary . DC planning Dietary Evaluation Review Comments: Tube feeding peptide based Vital AF 1,2 @45ml/hr providing 1296+ 441(Propofol) and 81 g Protein. this regimen will support pt's 105% estmated protein needs and 90% estimated energy needs. Expected Outcomes/Goals: off vent and advanced to renal standard diet after passing a CUSTOMER RETENTION REPRESENTATIVE eval. Plan discussed with: Patient MARY PORRAS MD Nov 28, 2024 11:40
[2024-11-28 13:00] VITALS: BP 130/53; PULSE 73; RESP 18; TEMP 98; O2SAT 96
[2024-11-28 17:00] VITALS: BP 142/56; PULSE 72; RESP 18; TEMP 97.8; O2SAT 92
--- NOTE | 2024-11-28 18:24 | DVHPNRES ---
Progress Note Date Seen: Nov 28, 2024 Resident Creating Document: SOLEDAD PONCE RESIDENT Medical Necessity Reason Pt with a Central, PICC or Fol: No Subjective Review of Systems On my assessment, patient was seen and examined at bedside. Currently states feeling well, denies any significant shortness of breath, chest pain, abdominal pain, dysuria, nausea, vomiting, diarrhea, constipation, dizziness, lightheadedness. Currently tolerating diet. Physical therapy is going to work with him. Patient is noted to be A&O x3. Patient will be DC to SNF for PT continue medications as prescribed in spreadsheet. Follow-up with PCP in 1-2 weeks after discharge. Patient and verbalized understanding and agree with the DC plan, we spent 37 minutes explaining the plan. Objective vital signs Vital Sign Date Time Temp Pulse Resp B/P (MAP) Pulse Ox O2 Delivery O2 Flow Rate FiO2 11/28/24 17:00 97.8 72 18 142/56 (84) 92 97.8 11/28/24 08:00 Nasal Cannula* 2 28 Total Intake and Output 11/27/24 11/27/24 11/28/24 15:00 23:00 07:00 Intake Total 50 ml 750 ml Output Total 0 ml Balance 50 ml 0 ml 750 ml Examination Physical examination as below: General: Awake, A&Ox3, comfortable appearing, in no acute distress. HEENT: Head is normocephalic and atraumatic. Pupils are equal, round, and reactive to light. Neck: Supple with no cervical lymphadenopathy. Heart: Regular rate without murmur, rub, or gallop. Lungs: scattered crackles Abdomen: No external sign of injury. Bowel sounds are present. Abdomen is soft, nontender. No rebound, no guarding, no rigidity. There are no palpable masses. There is no flank pain on exam. Extremities: Strong peripheral pulses. There is no clubbing, no cyanosis, and no edema. Skin: No rash. Neurologic: Cranial nerves II-XII intact without motor, sensory, or cerebellar deficit, no asterixis. laboratory and microbiology Laboratory Tests 11/28/24 04:23 11/27/24 06:58 Test 11/28/24 04:23 Range/Units Serum Glucose 82 74-106 mg/dL Microbiology Date/Time Source Procedure Growth Status 11/20/24 02:10 Nose MRSA Screen - Final Complete 11/19/24 18:11 Blood Blood Culture - Final NO GROWTH AFTER 5 DAYS OF INCUBATION. Complete Labs and/or images reviewed: Labs reviewed by me, Image(s) reviewed by me Problem List/Assessment/Plan Problem List/Assessment/Plan Neurology #Metabolic encephalopathy #Possible Anoxic brain injury Head CT unremarkable Cardiovascular #Cardiac arrest status post ROSC x5 #Cardiogenic shock #Cardiac arrhythmia (V-Fib and pulseless V-Tach) - etiology electrolyte alteration vs ischemia #History of CAD status post CABG (2020) #PCIx8 #Chest pain, NSTEMI, rule out type 1 #Dyslipidemia #H/o hypertension #Acute on chronic systolic CHF Consulted cardiology, LHC performed, s/p PCI x1 Continue aspirin and plavix Continue amiodarone po Maintain map above 60, off Levophed Continue hemodialysis Pulmonology #Acute hypoxic respiratory failure s/p mechanical ventilation, extubated #Possible aspiration pneumonia, Gram-positive versus Gram-negative MV: FIO2 30%, PEEP 5, TV 500, RR 20 Rocephin IV extubated on 11/24/24 Nephrology #End-stage renal disease on hemodialysis #Hyperkalemia, improving Nephrology following Endocrinology #Type 2 diabetes SSI mild Gastroenterology #Transaminitis, likely liver shock Monitor Nutrition: renal diet Hematology and Oncology #Anemia, mild, microcytic, normochromic Monitor Infectious Disease #Possible aspiration pneumonia, Gram-positive versus Gram-negative #Septic shock due to above Continue cefepime IV continue levophed Dermatology x DVT ppx Heparin SC PUD ppx Protonix Drips x Lines picc line placed on 11/20/24 ET tube, 11/19/24, extubated on 11/24/24 Goals of care we discussed with spouse for over 30 minutes. FULL CODE. Patient will be DC to SNF for PT continue medications as prescribed in spreadsheet. Follow-up with PCP in 1-2 weeks after discharge. Patient and verbalized understanding and agree with the DC plan, we spent 37 minutes explaining the plan. Case was discussed with Dr. Garner Plan discussed with: Patient, Spouse, Other (RN) My Orders My Orders Orders - SOLEDAD PONCE RESIDENT Procedure Category Date Status Time Discharge DISCHARGE 11/28/24 Transmitted 10:04 Dietary Evaluation Review Comments: Tube feeding peptide based Vital AF 1,2 @45ml/hr providing 1296+ 441(Propofol) and 81 g Protein. this regimen will support pt's 105% estmated protein needs and 90% estimated energy needs. Expected Outcomes/Goals: off vent and advanced to renal standard diet after passing a CHAIRMAN EMERITUS eval. SOLEDAD PONCE RESIDENT Nov 28, 2024 18:24
== END 2024-11-28 17:13 | disposition home or self-care (01) | DRG 853 ==
LOC: EDBD 17:31 → ER 17:31 → OVERFLOW 20:45 → ICU WEST 11-20 02:07 → TELE-WESTW 11-25 12:56
PROVIDERS: ADMIT Internal Medicine; ATTEND Internal Medicine
PROC: 5A1D70Z Performance of Urinary Filtration, Intermittent, Less than 6 Hours Per Day (ICD-10-PCS; 2024-11-19)
PROC: 5A12012 Performance of Cardiac Output, Single, Manual (ICD-10-PCS; 2024-11-19)
PROC: 06HY33Z Insertion of Infusion Device into Lower Vein, Percutaneous Approach (ICD-10-PCS; 2024-11-19)
PROC: 5A1955Z Respiratory Ventilation, Greater than 96 Consecutive Hours (ICD-10-PCS; 2024-11-19)
PROC: 0BH17EZ Insertion of Endotracheal Airway into Trachea, Via Natural or Artificial Opening (ICD-10-PCS; 2024-11-19)
PROC: 02HV33Z Insertion of Infusion Device into Superior Vena Cava, Percutaneous Approach (ICD-10-PCS; 2024-11-20)
PROC: B548ZZA Ultrasonography of Superior Vena Cava, Guidance (ICD-10-PCS; 2024-11-20)
PROC: 027034Z Dilation of Coronary Artery, One Artery with Drug-eluting Intraluminal Device, Percutaneous Approach (ICD-10-PCS; principal; 2024-11-21)
PROC: 4A023N7 Measurement of Cardiac Sampling and Pressure, Left Heart, Percutaneous Approach (ICD-10-PCS; 2024-11-21)
PROC: B211YZZ Fluoroscopy of Multiple Coronary Arteries using Other Contrast (ICD-10-PCS; 2024-11-21)
PROC: B218YZZ Fluoroscopy of Left Internal Mammary Bypass Graft using Other Contrast (ICD-10-PCS; 2024-11-21)
PROC: B212YZZ Fluoroscopy of Single Coronary Artery Bypass Graft using Other Contrast (ICD-10-PCS; 2024-11-21)
PROC: B215YZZ Fluoroscopy of Left Heart using Other Contrast (ICD-10-PCS; 2024-11-21)
PROC: 5A1D70Z Performance of Urinary Filtration, Intermittent, Less than 6 Hours Per Day (ICD-10-PCS; 2024-11-21)
PROC: 5A1D70Z Performance of Urinary Filtration, Intermittent, Less than 6 Hours Per Day (ICD-10-PCS; 2024-11-23)
PROC: 5A09357 Assistance with Respiratory Ventilation, Less than 24 Consecutive Hours, Continuous Positive Airway Pressure (ICD-10-PCS; 2024-11-24)
PROC: 5A1935Z Respiratory Ventilation, Less than 24 Consecutive Hours (ICD-10-PCS; 2024-11-24)
PROC: 5A1D70Z Performance of Urinary Filtration, Intermittent, Less than 6 Hours Per Day (ICD-10-PCS; 2024-11-26)
PROC: 5A1D70Z Performance of Urinary Filtration, Intermittent, Less than 6 Hours Per Day (ICD-10-PCS; 2024-11-28)
DX: A41.50 Gram-negative sepsis, unspecified (principal); G93.41 Metabolic encephalopathy; I21.4 Non-ST elevation (NSTEMI) myocardial infarction; J96.01 Acute respiratory failure with hypoxia; I50.23 Acute on chronic systolic (congestive) heart failure; I49.01 Ventricular fibrillation; N18.6 End stage renal disease; J69.0 Pneumonitis due to inhalation of food and vomit; K72.00 Acute and subacute hepatic failure without coma; R57.0 Cardiogenic shock; R65.21 Severe sepsis with septic shock; I46.2 Cardiac arrest due to underlying cardiac condition; J15.9 Unspecified bacterial pneumonia; J15.69 Pneumonia due to other Gram-negative bacteria; I13.2 Hypertensive heart and chronic kidney disease with heart failure and with stage 5 chronic kidney disease, or end stage renal disease; I47.29 Other ventricular tachycardia; F05 Delirium due to known physiological condition; E87.21 Acute metabolic acidosis; I42.9 Cardiomyopathy, unspecified; G93.1 Anoxic brain damage, not elsewhere classified; Z20.822 Contact with and (suspected) exposure to COVID-19; E87.5 Hyperkalemia; E11.22 Type 2 diabetes mellitus with diabetic chronic kidney disease; E78.5 Hyperlipidemia, unspecified; I25.10 Atherosclerotic heart disease of native coronary artery without angina pectoris; I27.20 Pulmonary hypertension, unspecified; N52.9 Male erectile dysfunction, unspecified; D50.9 Iron deficiency anemia, unspecified; F41.9 Anxiety disorder, unspecified; I45.10 Unspecified right bundle-branch block; Z99.2 Dependence on renal dialysis; Z95.1 Presence of aortocoronary bypass graft; I25.2 Old myocardial infarction; Z79.02 Long term (current) use of antithrombotics/antiplatelets; Z95.5 Presence of coronary angioplasty implant and graft; Z83.3 Family history of diabetes mellitus; Z79.82 Long term (current) use of aspirin; Z79.4 Long term (current) use of insulin; Z87.891 Personal history of nicotine dependence; Z79.899 Other long term (current) drug therapy; Z88.8 Allergy status to other drugs, medicaments and biological substances; Z90.49 Acquired absence of other specified parts of digestive tract
CPT/HCPCS: 36415; 36556; 36569; 36600; 70450; 71045; 76937; 80048; 80053; 80061; 82140; 82306; 82550; 82607; 82805; 82962; 83036; 83605; 83735; 84100; 84132; 84443; 84484; 85007; 85014; 85018; 85025; 85027; 85610; 85730; 87040; 87070; 87081; 87205; 87340; 87426; 87804; 90935; 92610; 92950; 93005; 93306; 93970; 94002; 94003; 94640; 94660; 96365; 96367; 96375; 97116; 97162; 97530; 99152; 99291; G0378; J0692; J1815; J1885; J2405; J2470; J2704; J7060; P9047; Q9967